=== PATIENT | male | born 1965 | race Caucasian/White ===

== ENCOUNTER 2018-11-17 15:54 | Inpatient (IN) ==
[2018-11-17] MEDS ORDERED: ASPIRIN CHEW 324 MG PO STA (16:12)
[2018-11-17] MEDS ORDERED: NITROGLYCERIN SL 0.4 MG/TAB TAB SL PRN (16:14)
[2018-11-17] MEDS ORDERED: SODIUM CHLORIDE 0.9% 1000ML 1,000 ML IV SCH (16:15)
--- NOTE | 2018-11-17 16:39 | XRay Report ---
XR chest 1V portable CLINICAL HISTORY: Chest Pain COMPARISON STUDY: No previous studies for comparison. FINDINGS: Lung volumes are normal. There is no pneumothorax. No consolidation or evidence for pulmona ry edema. There is mild cardiomegaly. There is a possible trace right pleural effusion. IMPRESSION: 1. Possible trace right pleural effusion. 2. Mild cardiomegaly without evidence for pulmonary edema. Electronically signed by: Shahzad Feldman M.D. 11/17/2018 4:38 PM
[2018-11-17 16:42] LABS: Basophils # (auto) 0.03 K/uL (0-0.2); Basophils % (auto) 0.3 %; Eosinophils % (auto) 1.8 %; Hematocrit (blood only) 38.3 % (42-52); Hemoglobin 13.3 g/dL (14.0-18.0); Immature Granulocytes # (auto) 0.03 K/uL (0.00-0.02); Immature Granulocytes % (auto) 0.3 %; Lymphocytes # (auto) 1.54 K/uL (1.2-3.4); Lymphocytes % (auto) 14.2 %; Mean Corpuscular Hgb Conc 34.7 g/dL (32-36); Mean Corpuscular Volume 91.6 fL (80-100); Mean Platelet Volume 10.5 fL (7.4-10.4); Monocytes # (auto) 1.11 K/uL (0.11-0.59); Monocytes % (auto) 10.3 %; Neutrophils # (auto) 7.91 K/uL (1.4-6.5); Neutrophils % (auto) 73.1 %; Platelet Count 329 K/uL (130-400); RDW Coefficient of Variation 12.6 % (11.5-14.5); RDW Standard Deviation 42.3 fL (36.4-46.3); Red Blood Count 4.18 M/uL (4.7-6.1); White Blood Count 10.82 K/uL (4.8-10.8)
[2018-11-17 16:59] LABS: Alanine Aminotransferase 22 U/L (12-78); Albumin Level 3.2 gm/dl (3.4-5.0); Aspartate Aminotransferase 9 U/L (15-37); BUN Creatinine Ratio 20.2 (10-20); Blood Urea Nitrogen 19 mg/dl (7-18); Carbon Dioxide 27 mmol/L (21-32); Chloride 104 mmol/L (98-107); Creatinine Clr Calc Pharmacy 114.5 ml/min; Est GFR (Non-African American) 89.8; Glucose 58 mg/dl (70-99); Potassium 3.7 mmol/L (3.5-5.1); Sodium 136 mmol/L (136-145)
[2018-11-17 17:04] LABS: Albumin Globulin Ratio 0.8 (0.9-2); Alkaline Phosphatase 82 U/L (45-117); Bilirubin,Total 0.7 mg/dl (0.2-1); Globulin 4.1 gm/dl (2.5-4.0); Total Protein 7.3 gm/dl (6.4-8.2); Troponin I < 0.015 ng/ml (0-0.045)
[2018-11-17 17:08] LABS: INR 1.1 (0.9-1.1); Partial Thromboplastin Ratio 1.1; Partial Thromboplastin Time 29.9 Seconds (21.0-31.0); Prothrombin Time 10.8 Seconds (9.0-12.0)
[2018-11-17 18:37] LABS: Phosphorus 3.3 mg/dl (2.5-4.9)
[2018-11-17] MEDS ORDERED: METOPROLOL SUCC 25MG EXT REL TAB PO ONE (19:06)
[2018-11-17] MEDS ORDERED: IBUPROFEN 600 MG TAB PO STA (19:12)
--- NOTE | 2018-11-17 19:38 | History & Physical Report ---
Date of Service November 17, 2018 Assessment & Plan (1) Pericardial effusion: (2) Chest pain: Pt presented with c/o anterior CP, SOB x 1 week, worse with inspiration. Had Outpatient study 12/17/18 CTA CHEST: Moderate pericardial effusion. Trace bilateral pleural effusions. No pulmonary embolism identified. In ER pt afebrile, P: 114, R: 20, BP: 126/75, 96% on RA. WBC: 10.8, H/H: 13/38, BUN: 19, Cr: 0.9, negative troponin, ESR: 67, CRP: 13.5, EKG: sinus tachycardia, rate 111 CXR: Possible trace right pleural effusion. Mild cardiomegaly without evidence for pulmonary edema. -In ER pt was given aspirin 324mg, NSS at 125ml/hr -trend troponin -Ibuprofen dose tonight, reassess in am to determine if scheduled ibuprofen or if cardiology prefers different agent -Echo -Cardiology consult, jury consultant recommends Ibuprofen dose -NPO midnight -Repeat EKG in am (3) Diabetes mellitus, type 2: A1c: 7.4 on 09/16/18 -Hold metformin, ozempic -Continue Lantus (dosed with sliding scale for now since pt didn't eat lunch/dinner and had initial glucose 54 in ER, and will be NPO midnight) -Novolog sliding scale per protocol (4) Hypertension: -Continue metoprolol, lisinopril (5) Hyperlipidemia: -Continue statin (6) Depression: -Continue bupropion (7) GERD (gastroesophageal reflux disease): -Continue PPI (8) Thoracic aortic aneurysm: H/O 4.7cm ascending thoracic aortic aneurysm DVT Prophylaxis -SCDs for now, will re-evaluate tomorrow Full Code as per discussion with pt Follows with Dr Sullivan for routine care Pt was seen and care coordinated with Dr Wilkinson. See addendum History of Present Illness Chief Complaint: CP Primary Care Provider: Claus Sullivan MD Pt is 53 y/o M with PMH DM II, HTN, dyslipidemia, h/o DVT, thoracic aortic aneurysm presented to ER from direction of PCP for CP and SOB. Pt reports is been having anterior chest pain and shortness of breath which started 1 week ago. He reports initially chest pain with inspiration. Patient states initially felt short of breath at rest but now feels short of breath with exertion. Symptoms seem improved with sitting up. Denies cough. [place] like had some sore throat a couple of days ago. Patient thinks had mild fever 4 days ago. Was seen at PCPs office and had continued symptoms so had outpatient CT chest to rule out PE today with findings of moderate pericardial effusion, trace bilateral pleural effusions, no PE identified. Pt states has been taking Tylenol intermittently without much relief. Denies diaphoresis, N/V/D/C, [place], dizziness, syncope, vision changes, orthopnea, palpitations, choking, otalgia, rhinorrhea, abdominal pain, paresthesias, weakness, extremity weakness, extremity edema, rashes, urinary symptoms. Allergies Allergy/AdvReac Type Severity Reaction Status Date / Time No Known Allergies Allergy Verified 11/17/18 16:58 Home Medications Home Medications Medication Instructions Recorded Confirmed Type Lantus U-100 Insulin 54 unit SUBCUT QAM 04/08/18 11/17/18 History Ozempic 1 mg SUBCUT WK 04/08/18 11/17/18 History aspirin [Aspir-81] 81 mg PO QAM 04/08/18 11/17/18 History atorvastatin 40 mg PO DAILY 04/08/18 11/17/18 History bupropion HCl 150 mg PO BID 04/08/18 11/17/18 History lisinopril 5 mg PO DAILY 04/08/18 11/17/18 History metoprolol succinate 25 mg PO QAM 04/08/18 11/17/18 History omeprazole 20 mg PO QAM 04/08/18 11/17/18 History metformin 1,000 mg PO BID 11/17/18 11/17/18 History Past Med/Surg History Medical History Sleep apnea (Chronic) NO DEVICE DVT (deep venous thrombosis) (Resolved) 15 YEARS AGO Depression (Chronic) GERD (gastroesophageal reflux disease) (Chronic) Obesity (Chronic) Thoracic aortic aneurysm (Chronic) 4.7cm on echo, 2018 Gastroparesis (Chronic) Hyperlipidemia (Chronic) Hypertension (Chronic) Diabetes mellitus, type 2 (Chronic) IDDM Surgical History History of herniorrhaphy (Chronic) CHILDHOOD History of eye surgery (Chronic) MUSCULAR SURGERY X2 Family History Other Cancer Diabetes Social History Preferred Language: Kinyarwanda Communication Ability: Effective Electrophysiology Nurse Practitioner Required: No Beliefs That Will Affect Care: None Current Living Situation: Alone Other Information That Helps Us Care for You: No Feels Safe at Home: Yes Safety Concerns: Feels Safe At This Time Smoking Status: Former smoker Smoking End Date: 2012 Second Hand Exposure: No Hx Alcohol Use: Yes Alcohol type: other Alcohol Intake Frequency Comment: 2 times a month Hx Substance Use: No Review of Systems Review of Systems: All systems reviewed & are unremarkable except as noted in HPI & below Physical Exam Physical Exam: General: no acute distress, obese Head: normocephalic, atraumatic Eyes: PERRL, EOM's intact, conjunctiva non-injected, anicteric ENT: normal inspection external ears, nose, mucous membranes moist Neck: supple, trachea midline, non-tender Lungs: clear, no respiratory distress, no wheezing/rhonchi/rales CV: regular rhythm, rate 110, no murmur, no JVD, trace pretibial edema Abd: normal BS, soft, non-tender Ext: no cyanosis, no calf tenderness Neuro: A&O x 3, no focal deficits noted, normal affect Skin: warm, dry Results & Data Vital Signs (Past 12 Hours) Vital Signs Temp Pulse Pulse Resp BP BP Pulse Ox 11/17/18 18:31 113 H 25 H 11/17/18 18:30 111 H 27 H 141/96 H 11/17/18 18:01 105 H 22 95 11/17/18 17:43 105 H 22 141/98 H 95 11/17/18 16:52 110 H 20 123/81 96 11/17/18 16:28 96 11/17/18 15:58 36.7 C 114 H 20 126/75 96 Laboratory Results Short CBC 11/17/18 Range/Units 16:25 WBC 10.82 H (4.8-10.8) K/uL Hgb 13.3 L (14.0-18.0) g/dL Hct 38.3 L (42-52) % Plt Count 329 (130-400) K/uL BMP 11/17/18 16:25 Sodium 136 Potassium 3.7 Chloride 104 Carbon Dioxide 27 BUN 19 H Creatinine 0.95 Glucose 58 L Calcium 9.0 Cardiac Enzymes 11/17/18 Range/Units 16:25 Troponin I < 0.015 (0-0.045) ng/ml Liver Function 11/17/18 Range/Units 16:25 Total Bilirubin 0.7 (0.2-1) mg/dl AST 9 L (15-37) U/L ALT 22 (12-78) U/L Alkaline Phosphatase 82 (45-117) U/L Albumin 3.2 L (3.4-5.0) gm/dl Diagnostic Findings CXR: IMPRESSION: 1. Possible trace right pleural effusion. 2. Mild cardiomegaly without evidence for pulmonary edema. Out patient study: 12/17/18 CTA CHEST: IMPRESSION 1. Moderate pericardial effusion. 2. Trace bilateral pleural effusions. 3. No pulmonary embolism identified. Supervising Physician Co-Signing Physician Notes Attending addendum The patient was seen and examined in the emergency room This 53-year-old male with significant past medical history of diabetes, hypertension, hyperlipidemia and sleep apnea was admitted yesterday with the chest heaviness/pain and shortness of breath on exertion Noted to have him medical effusion on CAT scan and cardiomegaly chest x-ray Did not complain any other symptoms during my examination of the emergency room except a heaviness in the chest when lying down without shortness of breath The initial lab works are unremarkable On examination No apparent distress at rest Hemodynamically stable with borderline tachycardia Chest-clear to auscultate bilaterally Heart-S1-S2, regular, no decreasing heart sounds and no rub Abdomen-benign Extremities-trace edema bilaterally [employer]-alert, awake and oriented x3 Admission labs, imaging studies and EKG reviewed Has mild pericardial effusion without any significant symptoms Started on ibuprofen and cardiology consulted Agree with assessment and plan as outlined above by CANDI Over[address] Dr (1) Chest pain Chest pain type: unspecified Qualified Code(s): R07.9 - Chest pain, unspecified
[2018-11-17] MEDS ORDERED: GLUCOSE 10 TABS/TUBE PO PRN (20:48)
[2018-11-17] MEDS ORDERED: GLUCOSE 40% GEL 15 GM TUBE PO PRN (20:48)
[2018-11-17] MEDS ORDERED: CARBOHYDRATES FOR HYPOGLYCEMIA PO PRN (20:48)
[2018-11-17] MEDS ORDERED: DEXTROSE 50% 50 ML SYRINGE IV PRN (20:48)
[2018-11-17] MEDS ORDERED: ACETAMINOPHEN 325 MG TAB PO PRN (20:48)
[2018-11-17] MEDS ORDERED: GLUCAGON FOR INJ 1 MG VIAL SQ PRN (20:48)
[2018-11-17] MEDS: BuPROPion SR 150 MG TABCR PO SCH (21:43)
[2018-11-17] MEDS: INSULIN ASPART 100 UNITS/ML 3 ML PEN SC SCH (21:44)
[2018-11-17] MEDS: INSULIN GLARGINE SOLOSTAR 100 UNITS/ML 3 ML PEN SC SCH (21:44)
--- NOTE | 2018-11-18 00:34 | Emergency Department Note ---
Entered by Mikael Wright acting as a scribe for Mary Mae MD History of Present Illness General Chief complaint: Chest Pain Stated complaint: CHEST PAIN, POSSIBLE FLUID AROUND HEART-REFERRED Source: patient History of Present Illness Onset (ago): week(s) 1 Location: chest Pain Consistency: + other (worsening) Maximum Pain Intensity: 0 Exacerbated By: + other (exertion and deep breathing) Associated symptoms: + denies other symptoms (mucous buildup, throat tightness); no shortness of breath The patient is a 53 year old M who presents to the Emergency Room with complaints of worsening chest pain that started 1 week ago. The patient states that he thinks he has a cold. He adds that he saw his PCP recently who thinks he has a possible pneumonia. He notes that he also had a CT scan today. Per pt, PCP saw his CT scan and thought he had fluid building up around his heart, referring him to the ED. He notes that his chest pain is worsened with exertion and deep breathing. He denies currently experiencing mucous buildup, shortness of breath, and throat tightness. He states that he has a history of diabetes, HTN, HLD, enlarged aorta, and a blood clot in 2007. He adds that he does not know the source of his blood clot. He denies being on any recent long trips. He notes that he ate last 2 days ago. He states that he has trouble breathing but was able to sleep well yesterday after taking Sudafed. He adds that his other medication that he regularly takes is Wellbutrin. He states that he quit smoking in 2012. A review of the patients records reveals that the patient had a CT PE with contrast today at [facility], 11/17/18. The CT scan showed moderate pericardial effusion, trace bilateral pleural effusions, and no pulmonary embolism. Home Medications Home Medications Medication Instructions Recorded Confirmed Type Lantus U-100 Insulin 54 unit SUBCUT QAM 04/08/18 11/17/18 History Ozempic 1 mg SUBCUT WK 04/08/18 11/17/18 History aspirin [Aspir-81] 81 mg PO QAM 04/08/18 11/17/18 History atorvastatin 40 mg PO DAILY 04/08/18 11/17/18 History bupropion HCl 150 mg PO BID 04/08/18 11/17/18 History lisinopril 5 mg PO DAILY 04/08/18 11/17/18 History metoprolol succinate 25 mg PO QAM 04/08/18 11/17/18 History metformin 1,000 mg PO BID 11/17/18 11/17/18 History colchicine [Colcrys] 0.6 mg PO BID 90 Days #180 tab 11/19/18 Rx ibuprofen 600 mg PO Q8H 30 Days #90 tab 11/19/18 Rx pantoprazole 40 mg PO QAM 30 Days #30 tab 11/19/18 Rx Allergies Allergy/AdvReac Type Severity Reaction Status Date / Time No Known Allergies Allergy Verified 11/17/18 16:58 Past Med/Surg History Medical History Sleep apnea (Chronic) NO DEVICE DVT (deep venous thrombosis) (Resolved) 15 YEARS AGO Depression (Chronic) GERD (gastroesophageal reflux disease) (Chronic) Obesity (Chronic) Thoracic aortic aneurysm (Chronic) 4.7cm on , 2017 Gastroparesis (Chronic) Hyperlipidemia (Chronic) Hypertension (Chronic) Diabetes mellitus, type 2 (Chronic) IDDM Surgical History History of herniorrhaphy (Chronic) CHILDHOOD History of eye surgery (Chronic) MUSCULAR SURGERY X2 Family History Other Cancer Diabetes Social History Preferred Language: Tristanian Communication Ability: Effective Starting Gate Driver Required: No Beliefs That Will Affect Care: None Current Living Situation: Alone Other Information That Helps Us Care for You: No Feels Safe at Home: Yes Safety Concerns: Feels Safe At This Time Smoking Status: Former smoker Smoking End Date: 2012 Second Hand Exposure: No Hx Alcohol Use: Yes Alcohol type: other Alcohol Intake Frequency Comment: 2 times a month Hx Substance Use: No Review of Systems See HPI for pertinent positives & negatives. and A total of 10 systems reviewed and were otherwise negative Physical Exam Vital Signs Vital Signs - 24 hr 11/17/18 15:58 11/17/18 16:28 11/17/18 16:52 Temperature 36.7 C Temperature Source Oral Sepsis Recent Fever Within 48 Hours No Sepsis New/Unexplained Change in Mental Status No Sepsis Action Taken by Nursing No Action Required Pulse Rate 114 H Pulse Rate [Apical] 110 H Pulse Rate from SpO2 Sensor Pulse Rhythm Regular Pulse Strength Normal Respiratory Rate 20 20 Respiratory Effort / Characteristics Non-Labored Spontaneous Non-Labored Spontaneous Respiratory Depth Normal Normal Respiratory Pattern Regular Regular Blood Pressure 126/75 Blood Pressure [Left Arm] 123/81 Blood Pressure Mean 92 Blood Pressure Mean [Left Arm] 95 Blood Pressure Position Sitting Blood Pressure Position [Left Arm] Sitting Pulse Oximetry 96 96 96 Oxygen Delivery Method Room Air Room Air Room Air 11/17/18 17:43 11/17/18 18:01 11/17/18 18:30 Temperature Temperature Source Sepsis Recent Fever Within 48 Hours Sepsis New/Unexplained Change in Mental Status Sepsis Action Taken by Nursing Pulse Rate 105 H 111 H Pulse Rate [Apical] 105 H Pulse Rate from SpO2 Sensor 104 H Pulse Rhythm Pulse Strength Respiratory Rate 22 22 27 H Respiratory Effort / Characteristics Non-Labored Spontaneous Respiratory Depth Normal Respiratory Pattern Regular Blood Pressure 141/96 H Blood Pressure [Left Arm] 141/98 H Blood Pressure Mean 111 Blood Pressure Mean [Left Arm] 112 Blood Pressure Position Blood Pressure Position [Left Arm] Sitting Pulse Oximetry 95 95 Oxygen Delivery Method Room Air 11/17/18 18:31 Temperature Temperature Source Sepsis Recent Fever Within 48 Hours Sepsis New/Unexplained Change in Mental Status Sepsis Action Taken by Nursing Pulse Rate 113 H Pulse Rate [Apical] Pulse Rate from SpO2 Sensor Pulse Rhythm Pulse Strength Respiratory Rate 25 H Respiratory Effort / Characteristics Respiratory Depth Respiratory Pattern Blood Pressure Blood Pressure [Left Arm] Blood Pressure Mean Blood Pressure Mean [Left Arm] Blood Pressure Position Blood Pressure Position [Left Arm] Pulse Oximetry Oxygen Delivery Method Vital signs reviewed. General: Well-appearing male, in no significant distress. HEENT: No scleral icterus, PERRLA, neck supple. Atraumatic. Cardiovascular: Tachycardic rate and rhythm, no extra sounds. Pulmonary: Clear to auscultation bilaterally, normal work of breathing. Abdomen: Soft, obese, nontender, nondistended, positive bowel sounds. Musculoskeletal: Atraumatic, non-pitting edema to lower extremities. Neurologic: Patient awake alert and oriented x 3. Skin: Warm, dry, no rash Course 0: The patient was evaluated in room B10. A complete history and physical exam was performed. 1809: I reviewed the patient's case with CANDI Lawrence. She will evaluate the patient for further management. 1814: I re-checked the patient and updated him on his test results and plan. Consultations Consultation #1: I reviewed the patient's case with BERTIN Lawrence. She will evaluate the patient for further management. Time: 18:10 Administered Medications Discontinued Medications Aspirin (Aspirin) 324 mg PO NOW STA Stop: 11/17/18 16:13 Last Admin: 11/17/18 16:52 Dose: 324 mg Documented by: [id number] Aspirin (Ecotrin Ectab) 81 mg PO QAM NICK Stop: 12/18/18 08:59 Last Admin: 11/19/18 08:47 Dose: 81 mg Documented by: [id number] Admin: 11/18/18 08:18 Dose: 81 mg Documented by: [id number] Atorvastatin Calcium (Lipitor) 40 mg PO DAILY NICK Stop: 12/18/18 08:59 Last Admin: 11/19/18 08:46 Dose: 40 mg Documented by: [id number] Admin: 11/18/18 08:18 Dose: 40 mg Documented by: [id number] Bupropion HCl (Wellbutrin-Sr) 150 mg PO BID [facility] Stop: 12/17/18 20:59 Last Admin: 11/19/18 08:46 Dose: 150 mg Documented by: [id number] Admin: 11/18/18 20:46 Dose: 150 mg Documented by: [id number] Admin: 11/18/18 08:17 Dose: 150 mg Documented by: [id number] Admin: 11/17/18 21:43 Dose: 150 mg Documented by: [id number] Colchicine (Colcrys) 0.6 mg PO BID [facility] Stop: 12/18/18 20:59 Last Admin: 11/19/18 08:47 Dose: 0.6 mg Documented by: [id number] Admin: 11/18/18 20:46 Dose: 0.6 mg Documented by: [id number] Colchicine (Colcrys) 0.6 mg PO NOW ONE Stop: 11/18/18 14:34 Last Admin: 11/18/18 16:46 Dose: 0.6 mg Documented by: [id number] Sodium Chloride (Nss 1000ml) 1,000 mls @ 150 mls/hr IV .Q6H40M [facility] Stop: 12/17/18 16:14 Last Admin: 11/17/18 19:35 Dose: Not Given Documented by: [id number] Ibuprofen (Motrin) 600 mg PO NOW STA Stop: 11/17/18 19:13 Last Admin: 11/17/18 19:34 Dose: 600 mg Documented by: [id number] Ibuprofen (Motrin) 600 mg PO Q8H [facility] Stop: 12/18/18 13:59 Last Admin: 11/19/18 10:01 Dose: 600 mg Documented by: [id number] Admin: 11/19/18 01:50 Dose: 600 mg Documented by: [id number] Admin: 11/18/18 18:24 Dose: 600 mg Documented by: [id number] Ibuprofen (Motrin) 600 mg PO NOW STA Stop: 11/18/18 09:44 Last Admin: 11/18/18 10:36 Dose: 600 mg Documented by: [id number] Insulin Aspart (Novolog Flexpen) 0 units SC ACHS NICK Stop: 12/17/18 20:59 Last Admin: 11/19/18 12:29 Dose: 16 units Documented by: [id number] Cosigned by: [id number] Admin: 11/19/18 08:49 Dose: 15 units Documented by: [id number] Cosigned by: [id number] Admin: 11/18/18 20:48 Dose: 1 units Documented by: [id number] Cosigned by: [id number] Admin: 11/18/18 17:27 Dose: 7 units Documented by: [id number] Cosigned by: [id number] Admin: 11/18/18 12:41 Dose: 5 units Documented by: [id number] Cosigned by: [id number] Admin: 11/18/18 08:19 Dose: Not Given Documented by: [id number] Cosigned by: [id number] Admin: 11/17/18 21:44 Dose: Not Given Documented by: [id number] Cosigned by: [id number] Insulin Glargine (Lantus Solostar Pen) 0 - 27 units SC BID NICK Stop: 12/17/18 20:59 Last Admin: 11/19/18 08:49 Dose: 14 units Documented by: [id number] Cosigned by: [id number] Admin: 11/18/18 20:47 Dose: 14 units Documented by: [id number] Cosigned by: [id number] Admin: 11/18/18 08:18 Dose: Not Given Documented by: [id number] Cosigned by: [id number] Admin: 11/17/18 21:44 Dose: 14 units Documented by: [id number] Cosigned by: [id number] Lisinopril (Zestril) 5 mg PO DAILY NIKC Stop: 12/18/18 08:59 Last Admin: 11/19/18 08:46 Dose: 5 mg Documented by: [id number] Admin: 11/18/18 08:17 Dose: 5 mg Documented by: [id number] Metoprolol Succinate (Toprol Xl) 25 mg PO ONE ONE Stop: 11/17/18 19:07 Last Admin: 11/17/18 19:34 Dose: 25 mg Documented by: [id number] Metoprolol Succinate (Toprol Xl) 25 mg PO [facility] Stop: 12/18/18 08:59 Last Admin: 11/19/18 10:02 Dose: 25 mg Documented by: [id number] Admin: 11/18/18 08:17 Dose: 25 mg Documented by: [id number] Metoprolol Succinate (Toprol Xl) 25 mg PO NOW STA Stop: 11/19/18 10:10 Last Admin: 11/19/18 10:35 Dose: 25 mg Documented by: [id number] Miscellaneous (Carbohydrates For Hypoglycemia) 15 - 30 gm PO UD PRN PRN Reason: Hypoglycemia Treatment Stop: 12/17/18 20:47 Last Admin: 11/18/18 08:15 Dose: 15 gm Documented by: [id number] Pantoprazole Sodium (Protonix) 40 mg PO [facility]; Protocol Stop: 12/18/18 08:59 Last Admin: 11/19/18 08:46 Dose: 40 mg Documented by: [id number] Admin: 11/18/18 08:17 Dose: 40 mg Documented by: [id number] Potassium Chloride (Klor-Con M10) 20 meq PO NOW STA Stop: 11/19/18 09:54 Last Admin: 11/19/18 10:35 Dose: 20 meq Documented by: [id number] Potassium Chloride (Klor-Con M20) 40 meq PO NOW STA Stop: 11/19/18 10:10 Last Admin: 11/19/18 10:35 Dose: 40 meq Documented by: [id number] Medical Decision Making Differential Diagnosis Differential diagnosis includes acute coronary syndrome, pulmonary embolus, aortic dissection, musculoskeletal pain, pneumonia, pleural effusion, pneumothorax, gastritis, peptic ulcer disease. Medical Records Attestation: I reviewed the patient's medical records. Home Medications Current Medication List: was personally reviewed by me Laboratory Data Attestation: I reviewed the patient's lab results. Result diagrams: 11/19/18 05:34 11/19/18 05:34 Lab Results 11/17/18 11/17/18 11/17/18 Range/Units 16:25 16:25 16:25 WBC 10.82 H (4.8-10.8) K/uL RBC 4.18 L (4.7-6.1) M/uL Hgb 13.3 L (14.0-18.0) g/dL Hct 38.3 L (42-52) % MCV 91.6 (80-100) fL MCH 31.8 (25-34) pg MCHC 34.7 (32-36) g/dL RDW Std Deviation 42.3 (36.4-46.3) fL RDW Coeff of Jesus 12.6 (11.5-14.5) % Plt Count 329 (130-400) K/uL MPV 10.5 H (7.4-10.4) fL Immature Gran % (Auto) 0.3 % Neut % (Auto) 73.1 % Lymph % (Auto) 14.2 % [place] % (Auto) 10.3 % Eos % (Auto) 1.8 % Baso % (Auto) 0.3 % Immature Gran # (Auto) 0.03 H (0.00-0.02) K/uL Neut # (Auto) 7.91 H (1.4-6.5) K/uL Lymph # (Auto) 1.54 (1.2-3.4) K/uL [place] # (Auto) 1.11 H (0.11-0.59) K/uL Eos # (Auto) 0.20 (0-0.5) K/uL Baso # (Auto) 0.03 (0-0.2) K/uL ESR 67 H (0-14) mm/hr PT (9.0-12.0) Seconds INR (0.9-1.1) APTT (21.0-31.0) Seconds PTT Ratio Sodium 136 (136-145) mmol/L Potassium 3.7 (3.5-5.1) mmol/L Chloride 104 (98-107) mmol/L Carbon Dioxide 27 (21-32) mmol/L Anion Gap 5.0 (3-11) BUN 19 H (7-18) mg/dl Creatinine 0.95 (0.6-1.4) mg/dl Est Cr Clr Drug Dosing 114.5 ml/min Est GFR ( Amer) 104.0 Est GFR (Non-Af Amer) 89.8 BUN/Creatinine Ratio 20.2 H (10-20) Glucose 58 L (70-99) mg/dl Calcium 9.0 (8.5-10.1) mg/dl Phosphorus 3.3 (2.5-4.9) mg/dl Magnesium 2.0 (1.8-2.4) mg/dl Total Bilirubin 0.7 (0.2-1) mg/dl AST 9 L (15-37) U/L ALT 22 (12-78) U/L Alkaline Phosphatase 82 (45-117) U/L Troponin I < 0.015 (0-0.045) ng/ml C-Reactive Protein 13.50 H (0-0.29) mg/dl Total Protein 7.3 (6.4-8.2) gm/dl Albumin 3.2 L (3.4-5.0) gm/dl Globulin 4.1 H (2.5-4.0) gm/dl Albumin/Globulin Ratio 0.8 L (0.9-2) Lipase 71 L (73-393) U/L 11/17/18 Range/Units 16:26 WBC (4.8-10.8) K/uL RBC (4.7-6.1) M/uL Hgb (14.0-18.0) g/dL Hct (42-52) % MCV (80-100) fL MCH (25-34) pg MCHC (32-36) g/dL RDW Std Deviation (36.4-46.3) fL RDW Coeff of Jesus (11.5-14.5) % Plt Count (130-400) K/uL MPV (7.4-10.4) fL Immature Gran % (Auto) % Neut % (Auto) % Lymph % (Auto) % [place] % (Auto) % Eos % (Auto) % Baso % (Auto) % Immature Gran # (Auto) (0.00-0.02) K/uL Neut # (Auto) (1.4-6.5) K/uL Lymph # (Auto) (1.2-3.4) K/uL [place] # (Auto) (0.11-0.59) K/uL Eos # (Auto) (0-0.5) K/uL Baso # (Auto) (0-0.2) K/uL ESR (0-14) mm/hr PT 10.8 (9.0-12.0) Seconds INR 1.1 (0.9-1.1) APTT 29.9 (21.0-31.0) Seconds PTT Ratio 1.1 Sodium (136-145) mmol/L Potassium (3.5-5.1) mmol/L Chloride (98-107) mmol/L Carbon Dioxide (21-32) mmol/L Anion Gap (3-11) BUN (7-18) mg/dl Creatinine (0.6-1.4) mg/dl Est Cr Clr Drug Dosing ml/min Est GFR ( Amer) Est GFR (Non-Af Amer) BUN/Creatinine Ratio (10-20) Glucose (70-99) mg/dl Calcium (8.5-10.1) mg/dl Phosphorus (2.5-4.9) mg/dl Magnesium (1.8-2.4) mg/dl Total Bilirubin (0.2-1) mg/dl AST (15-37) U/L ALT (12-78) U/L Alkaline Phosphatase (45-117) U/L Troponin I (0-0.045) ng/ml C-Reactive Protein (0-0.29) mg/dl Total Protein (6.4-8.2) gm/dl Albumin (3.4-5.0) gm/dl Globulin (2.5-4.0) gm/dl Albumin/Globulin Ratio (0.9-2) Lipase (73-393) U/L Imaging Data Radiologist's Impression: Radiology results as stated below per my review and the radiologist's interpretation: XR chest 1V portable CLINICAL HISTORY: Chest Pain COMPARISON STUDY: No previous studies for comparison. FINDINGS: Lung volumes are normal. There is no pneumothorax. No consolidation or evidence for pulmonary edema. There is mild cardiomegaly. There is a possible trace right pleural effusion. IMPRESSION: 1. Possible trace right pleural effusion. 2. Mild cardiomegaly without evidence for pulmonary edema. Electronically signed by: Shahzda Feldman M.D. 11/17/2018 4:38 PM ECG Data Attestation: I personally reviewed and interpreted this ECG as follows: Indication: chest pain Rate (beats per minute): 113 Rhythm: sinus tachycardia Findings: + other (poor quality baseline for interpretation, T-wave flattening inferiorly, QTc 422), + PVC (occasional) and + Q waves (Anterior); no acute ischemic change Blood Pressure Blood Pressure Findings: Elevated blood pressure Blood Pressure Disposition: further management by hospitalist MDM Narrative This pt was evaluated and appeared to be in no distress. IV access was obtained and lab work was drawn. PT was placed on the telemetry monitor. Records were obtained from outpt setting. CT reveals pl effusion and mod pericardial effusion. EKG reveals a sinus tach with inferior T wave flattening. Lab work is as above, negative trop and WBC is WNL. Pt was advised of the findings. He will be evaluated by the hospitalist for further management. Pt is aware of the plan and agrees. Impression & Plan Chest pain, Pericardial effusion, Bilateral pleural effusion Discharge Plan Visit Data *Final* Discharge Date/Time: 11/17/18 19:54 Chief Complaint: Chest Pain Stated Complaint: CHEST PAIN, POSSIBLE FLUID AROUND HEART-REFERRED ED Provider: Mary Mae Discharge Problem: Chest pain, Pericardial effusion, Bilateral pleural effusion Patient Disposition: Admitted As Inpatient Discharge Instructions Interventions: ED Discharge Assessment Last Done: 11/17/18 19:54 Discharge Problem: Chest pain Qualifiers: Chest pain type: unspecified Qualified Code(s): R07.9 - Chest pain, unspecified The scribe's documentation has been prepared under my direction and personally reviewed by me in its entirety. I confirm that the note above accurately reflects all work, treatment, procedures, and medical decision making performed by me.
[2018-11-18 04:13] LABS: Hematocrit (blood only) 35.1 % (42-52); Hemoglobin 12.1 g/dL (14.0-18.0); Mean Corpuscular Hgb Conc 34.5 g/dL (32-36); Mean Corpuscular Volume 92.6 fL (80-100); Mean Platelet Volume 9.5 fL (7.4-10.4); Platelet Count 307 K/uL (130-400); RDW Coefficient of Variation 12.6 % (11.5-14.5); RDW Standard Deviation 42.8 fL (36.4-46.3); Red Blood Count 3.79 M/uL (4.7-6.1); White Blood Count 9.86 K/uL (4.8-10.8)
[2018-11-18 04:32] LABS: BUN Creatinine Ratio 22.4 (10-20); Blood Urea Nitrogen 17 mg/dl (7-18); Calcium 8.7 mg/dl (8.5-10.1); Carbon Dioxide 32 mmol/L (21-32); Chloride 103 mmol/L (98-107); Creatinine Clr Calc Pharmacy 139.4 ml/min; Est GFR (African American) 117.8; Est GFR (Non-African American) 101.6; Glucose 60 mg/dl (70-99); Potassium 3.6 mmol/L (3.5-5.1); Sodium 137 mmol/L (136-145)
[2018-11-18 04:43] LABS: Troponin I < 0.015 ng/ml (0-0.045)
[2018-11-18] MEDS: METOPROLOL SUCC 25MG EXT REL TAB PO SCH (08:17)
[2018-11-18] MEDS: BuPROPion SR 150 MG TABCR PO SCH ×2 (08:17→20:46)
[2018-11-18] MEDS: PANTOprazole 40 MG TAB PO SCH (08:17)
[2018-11-18] MEDS: LISINOPRIL 5 MG TAB PO SCH (08:17)
[2018-11-18] MEDS: ASPIRIN 81 MG ECTAB PO SCH (08:18)
[2018-11-18] MEDS: INSULIN GLARGINE SOLOSTAR 100 UNITS/ML 3 ML PEN SC SCH ×2 (08:18→20:47)
[2018-11-18] MEDS: ATORVASTATIN 40 MG TAB PO SCH (08:18)
[2018-11-18] MEDS: INSULIN ASPART 100 UNITS/ML 3 ML PEN SC SCH ×4 (08:19→20:48)
[2018-11-18] MEDS ORDERED: IBUPROFEN 600 MG TAB PO STA (09:43)
--- NOTE | 2018-11-18 11:45 | Consultation Report ---
DATE OF CONSULTATION: 11/18/2018 CARDIOLOGY CONSULTATION CONSULTATION REQUESTED BY: Jaja REASON FOR CONSULTATION: Symptomatic pericardial effusion. HISTORY OF PRESENT ILLNESS: The patient is a very pleasant 53-year-old gentleman who normally follows with myself as an outpatient for his history of ascending thoracic aortic aneurysm. As matter of fact actually just saw him on 10/28/2018, at which time he was symptom free; however, he states about a week ago, he started noticing he was getting short of breath with activity and he would have a fullness sensation in his chest if he took a deep breath. He also had an achy sensation in the center of his chest and these symptoms slowly progressed to the point where he went to see his PCP on 11/16/2018, Dr. Grider. Office note is not available at this time; however, looks as though he was sent for a CTA of the chest to rule out PE, which was negative for PE, but did show pericardial effusion. When the results became available, he was recommended he go to [facility] Emergency Department. Upon arrival, an echocardiogram was performed that showed only a mild circumferential pericardial effusion and the patient was started on ibuprofen. After 1 dose, he states he feels a little bit better, but still notices the discomfort with deep inhalation, but denies any palpitations, lightheadedness, dizziness or syncope. He denies any sick contacts and has not had any significant fevers or chills lately. He also denies any tick bites. PAST SURGICAL HISTORY: 1. Upper endoscopies. 2. Colonoscopy. 3. Hernia repair. 4. Eye muscle surgery. MEDICAL ILLNESSES: 1. Ascending thoracic aortic aneurysm 4.7 cm. 2. Diabetes. 3. Hyperlipidemia. 4. History of DVT. 5. Gastroparesis. FAMILY HISTORY: Denies any premature coronary artery disease or sudden cardiac . SOCIAL HISTORY: The patient denies any alcohol, tobacco or recreational drug use. He is not , lives by himself. He works 2 jobs including [employer] and a local [employer]. REVIEW OF SYSTEMS: As per HPI, all other review of systems reviewed and negative at this time. ALLERGIES: JARDIANCE. MEDICATIONS AN OUTPATIENT: 1. Lisinopril 5 mg daily. 2. Atorvastatin 40 mg daily. 3. Metoprolol succinate 25 mg daily. 4. Metformin. 5. Aspirin 81 mg daily. 6. Ozempic. 7. Lantus. PHYSICAL EXAMINATION: VITALS: Temperature 37.2, pulse 96, respiratory rate 12, blood pressure 127/83. GENERAL: Awake, alert, oriented x3, in no acute distress. HEENT: Normocephalic, atraumatic. Pupils equal, round, reactive to light and accommodation. Extraocular muscles intact. Anicteric sclerae. Moist mucous membranes. NECK: No JVD, no bruit. CARDIOVASCULAR: Regular. Positive S4. Normal S1 and S2. No S3. No murmurs or rubs. PULMONARY: Clear to auscultation bilaterally. No rales, rhonchi or wheezing. ABDOMEN: Bowel sounds x4, soft. No rebound, guarding, tenderness. No organomegaly. EXTREMITIES: No clubbing, cyanosis or edema. +2 pedal pulses bilaterally. SKIN: Warm and dry. TEST RESULTS: A 2D echocardiogram showed normal LV chamber size with mild concentric LVH, normal LV systolic function, EF 55%-60%, no segmental wall motion abnormalities, grade 2 diastolic dysfunction, mild aortic valve sclerosis without stenosis, trace aortic regurgitation, moderately enlarged ascending aortic aneurysm measuring 4.7 cm, unchanged compared to previous study of 12/10/2017, small circumferential pericardial effusion more pronounced anteriorly, tamponade physiology is not present. CTA of the chest performed at [facility] personally reviewed and his ascending aorta personally measured to be 4.6 cm. IMPRESSION: 1. Pericarditis with small circumferential pericardial effusion. 2. Ascending thoracic aortic aneurysm, stable. 3. Hypertension. 4. Diabetes. 5. Dyslipidemia. RECOMMENDATIONS: It was my pleasure to see the patient in consultation today. From a cardiac standpoint, I am not quite sure what the source of his pericardial effusion at this point. 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 At this point, I will check a Lyme titer and has been started on ibuprofen 600 mg t.i.d. along with Protonix. I am concerned about the cost of the colchicine for the patient. He does have Medicaid through [facility]. I have asked Case Management to look into the cost form to see if there is anything we do to make it more attainable for him, so we have decided that. I will hold off on adding colchicine and continue the ibuprofen for now. CHETD
[2018-11-18 13:14] LABS: Lyme Ab IgM w/WB Rflx Negative (Negative)
[2018-11-18 13:18] LABS: Lyme Ab IgG w/WB Rflx Negative (Negative)
[2018-11-18] MEDS ORDERED: COLCHICINE 0.6 MG TAB PO ONE (14:33)
--- NOTE | 2018-11-18 14:56 | Hospitalist Progress Note ---
Date of Service November 18, 2018 Assessment & Plan (1) Pericardial effusion: Secondary to acute pericarditis Most likely viral Echo showed normal LV chamber size with mild concentric LVH, EF 55% to60%, no segmental or motion abnormality, grade 2 diastolic dysfunction, aortic valve sclerosis without significant stenosis, moderately enlarged ascending aortic aneurysm of 4.7 cm(no change compared with that of 11/2017) and small circumferential pericardial effusion, more pronounced anteriorly. No tamponade Appreciate cardiology input and recommendation Has been getting NSAID's with with improved Clinically much better today Present on Admission?: Yes (2) Chest pain: Pt presented with c/o anterior CP, SOB x 1 week, worse with inspiration. Had Outpatient study 12/17/18 CTA CHEST: Moderate pericardial effusion. Trace bilateral pleural effusions. No pulmonary embolism identified. In ER pt afebrile, P: 114, R: 20, BP: 126/75, 96% on RA. WBC: 10.8, H/H: 13/38, BUN: 19, Cr: 0.9, negative troponin, ESR: 67, CRP: 13.5, EKG: sinus tachycardia, rate 111 CXR: Possible trace right pleural effusion. Mild cardiomegaly without evidence for pulmonary edema. -In ER pt was given aspirin 324mg, NSS at 125ml/hr -trend troponin-negative for any ACS -Ibuprofen dose tonight, reassess in am to determine if scheduled ibuprofen or if cardiology prefers different agent -Echo-as above -Cardiology consult, division superintendent recommends Ibuprofen dose -NPO midnight -Repeat EKG in am (3) Diabetes mellitus, type 2: A1c: 7.4 on 09/16/18 -Hold metformin, ozempic -Continue Lantus (dosed with sliding scale for now since pt didn't eat lunch/dinner and had initial glucose 54 in ER, and will be NPO midnight) -Novolog sliding scale per protocol -Blood sugar remains stable (4) Hypertension: -Continue metoprolol, lisinopril - (5) Hyperlipidemia: -Continue statin (6) Depression: -Continue bupropion (7) GERD (gastroesophageal reflux disease): -Continue PPI (8) Thoracic aortic aneurysm: H/O 4.7 centimeter ascending aortic aneurysm Echo showed ascending aortic aneurysm to remain at 4.7 cm DVT Prophylaxis -SCDs for now, will re-evaluate tomorrow -Increase ambulation to prevent DVT Full Code as per discussion with pt Follows with Dr Sullivan for routine care Increase ambulation Likely be discharged tomorrow Subjective 11/18 Patient was seen and examined in medical telemetry unit He was admitted with chest pain with medical effusion likely secondary to acute pericarditis He has been ruled out for any ACS Denies any complaints as of today Review of Systems Review of Systems: All systems reviewed and are unremarkable except as noted below Cardiovascular: Additional Comments: Chest pressure and pain have been resolved. Complains to have little discomfort 1 lying down Physical Exam Physical Exam: No apparent distress at rest Constitutional: well developed and + obese; no acute distress Eyes: PERRL, conjunctivae normal, anicteric sclerae ENMT: external ear and nose normal, oropharynx normal Neck: trachea midline, no thyromegaly Respiratory: normal respiratory effort Auscultation: lungs clear to auscultation bilaterally Cardiovascular: Rate/Rhythm: regular rate and regular rhythm Heart Sounds: no murmur Gastrointestinal (Abdomen): Inspection/Auscultation: abdomen normal to inspection and normal bowel sounds Percussion/Palpation: abdomen soft Musculoskeletal: No acute arthritis Neurologic: patellar DTR's 2+ bilat, sensation intact Lymphatic: no cervical or axillary lymphadenopathy Results & Data Vital Signs (Past 12 Hours) Vital Signs Temp Pulse Resp BP Pulse Ox 11/18/18 11:16 37.8 C H 105 H 18 129/84 94 11/18/18 07:17 37.2 C 96 H 18 127/83 95 11/18/18 04:00 37.3 C 91 H 20 116/79 95 Laboratory Results Short CBC 11/17/18 11/18/18 Range/Units 16:25 04:02 WBC 10.82 H 9.86 (4.8-10.8) K/uL Hgb 13.3 L 12.1 L (14.0-18.0) g/dL Hct 38.3 L 35.1 L (42-52) % Plt Count 329 307 (130-400) K/uL BMP 11/17/18 11/18/18 16:25 04:02 Sodium 136 137 Potassium 3.7 3.6 Chloride 104 103 Carbon Dioxide 27 32 BUN 19 H 17 Creatinine 0.95 0.78 Glucose 58 L 60 L Calcium 9.0 8.7 Cardiac Enzymes 11/17/18 11/17/18 11/18/18 Range/Units 16:25 22:03 04:02 Troponin I < 0.015 < 0.015 < 0.015 (0-0.045) ng/ml Liver Function 11/17/18 Range/Units 16:25 Total Bilirubin 0.7 (0.2-1) mg/dl AST 9 L (15-37) U/L ALT 22 (12-78) U/L Alkaline Phosphatase 82 (45-117) U/L Albumin 3.2 L (3.4-5.0) gm/dl Medications Administered Current Inpatient Medications Acetaminophen (Tylenol) 650 mg PO Q4H PRN PRN Reason: Pain or Fever Stop: 12/17/18 20:47 Aspirin (Ecotrin Ectab) 81 mg PO QAM [facility] Stop: 12/18/18 08:59 Last Admin: 11/18/18 08:18 Dose: 81 mg Documented by: Atorvastatin Calcium (Lipitor) 40 mg PO DAILY [facility] Stop: 12/18/18 08:59 Last Admin: 11/18/18 08:18 Dose: 40 mg Documented by: Bupropion HCl (Wellbutrin-Sr) 150 mg PO BID [facility] Stop: 12/17/18 20:59 Last Admin: 11/18/18 08:17 Dose: 150 mg Documented by: Colchicine (Colcrys) 0.6 mg PO BID [facility] Stop: 12/18/18 20:59 Dextrose (Dextrose 50%) 25 - 50 ml IV UD PRN; Protocol PRN Reason: Hypoglycemia Protocol Stop: 12/17/18 20:47 Glucagon (Glucagen) 1 mg SQ UD PRN; Protocol PRN Reason: Hypoglycemia Protocol Stop: 12/17/18 20:47 Glucose (Dex4 Glucose) 4 - 8 tabs PO UD PRN; Protocol PRN Reason: Hypoglycemia Protocol Stop: 12/17/18 20:47 Glucose (Glucose 40%) 15 - 30 gm PO UD PRN; Protocol PRN Reason: Hypoglycemia Protocol Stop: 12/17/18 20:47 Ibuprofen (Motrin) 600 mg PO Q8H [facility] Stop: 12/18/18 13:59 Insulin Aspart (Novolog Flexpen) 0 units SC ACHS [facility] Stop: 12/17/18 20:59 Last Admin: 11/18/18 12:41 Dose: 5 units Documented by: Insulin Glargine (Lantus Solostar Pen) 0 - 27 units SC BID [facility] Stop: 12/17/18 20:59 Last Admin: 11/18/18 08:18 Dose: Not Given Documented by: Lisinopril (Zestril) 5 mg PO DAILY [facility] Stop: 12/18/18 08:59 Last Admin: 11/18/18 08:17 Dose: 5 mg Documented by: Metoprolol Succinate (Toprol Xl) 25 mg PO [facility] Stop: 12/18/18 08:59 Last Admin: 11/18/18 08:17 Dose: 25 mg Documented by: Miscellaneous (Carbohydrates For Hypoglycemia) 15 - 30 gm PO UD PRN PRN Reason: Hypoglycemia Treatment Stop: 12/17/18 20:47 Last Admin: 11/18/18 08:15 Dose: 15 gm Documented by: Pantoprazole Sodium (Protonix) 40 mg PO [facility]; Protocol Stop: 12/18/18 08:59 Last Admin: 11/18/18 08:17 Dose: 40 mg Documented by: (1) Chest pain Chest pain type: unspecified Qualified Code(s): R07.9 - Chest pain, unspecified
[2018-11-18] MEDS: IBUPROFEN 600 MG TAB PO SCH (18:24)
[2018-11-18] MEDS: COLCHICINE 0.6 MG TAB PO SCH (20:46)
[2018-11-19] MEDS: IBUPROFEN 600 MG TAB PO SCH ×2 (01:50→10:01)
[2018-11-19 05:47] LABS: Basophils # (auto) 0.01 K/uL (0-0.2); Basophils % (auto) 0.1 %; Eosinophils # (auto) 0.15 K/uL (0-0.5); Eosinophils % (auto) 2.2 %; Hematocrit (blood only) 34.7 % (42-52); Hemoglobin 11.6 g/dL (14.0-18.0); Immature Granulocytes # (auto) 0.02 K/uL (0.00-0.02); Immature Granulocytes % (auto) 0.3 %; Lymphocytes # (auto) 1.28 K/uL (1.2-3.4); Lymphocytes % (auto) 18.4 %; Mean Corpuscular Hgb Conc 33.4 g/dL (32-36); Mean Corpuscular Volume 92.8 fL (80-100); Mean Platelet Volume 9.6 fL (7.4-10.4); Monocytes # (auto) 0.68 K/uL (0.11-0.59); Monocytes % (auto) 9.8 %; Neutrophils # (auto) 4.83 K/uL (1.4-6.5); Neutrophils % (auto) 69.2 %; Platelet Count 282 K/uL (130-400); RDW Coefficient of Variation 12.6 % (11.5-14.5); RDW Standard Deviation 42.8 fL (36.4-46.3); Red Blood Count 3.74 M/uL (4.7-6.1); White Blood Count 6.97 K/uL (4.8-10.8)
[2018-11-19 06:15] LABS: BUN Creatinine Ratio 19.1 (10-20); Calcium 8.5 mg/dl (8.5-10.1); Creatinine Clr Calc Pharmacy 135.2 ml/min; Est GFR (African American) 116.6; Est GFR (Non-African American) 100.6; Magnesium 2.5 mg/dl (1.8-2.4); Potassium 3.7 mmol/L (3.5-5.1)
[2018-11-19] MEDS: ATORVASTATIN 40 MG TAB PO SCH (08:46)
[2018-11-19] MEDS: PANTOprazole 40 MG TAB PO SCH (08:46)
[2018-11-19] MEDS: BuPROPion SR 150 MG TABCR PO SCH (08:46)
[2018-11-19] MEDS: LISINOPRIL 5 MG TAB PO SCH (08:46)
[2018-11-19] MEDS: METOPROLOL SUCC 25MG EXT REL TAB PO SCH ×2 (08:46→10:02)
[2018-11-19] MEDS: ASPIRIN 81 MG ECTAB PO SCH (08:47)
[2018-11-19] MEDS: COLCHICINE 0.6 MG TAB PO SCH (08:47)
[2018-11-19] MEDS: INSULIN ASPART 100 UNITS/ML 3 ML PEN SC SCH ×2 (08:49→12:29)
[2018-11-19] MEDS: INSULIN GLARGINE SOLOSTAR 100 UNITS/ML 3 ML PEN SC SCH (08:49)
[2018-11-19] MEDS ORDERED: POTASSIUM CHLORIDE 10 MEQ TABCR PO STA (09:53)
[2018-11-19] MEDS ORDERED: METOPROLOL SUCC 25MG EXT REL TAB PO STA (10:09)
[2018-11-19] MEDS ORDERED: POTASSIUM CHLORIDE 20 MEQ TABCR PO STA (10:09)
--- NOTE | 2018-11-19 14:01 | Cardiology Progress Note ---
Date of Service November 19, 2018 Assessment & Plan (1) Pericardial effusion: symptoms resolved with combination of ibuprofen and colchicine appreciate case management looking into drug pricing to be d/c'ed home on following course: ibuprofen 600mg po tid with food for 1 month colchicine 0.6mg po bid for 3 months protonix 40mg po daily for 1 month my office will call to arrange f/u limited echo and f/u with me in 1 month ok to d/c to home (2) Thoracic aortic aneurysm: stable (3) SVT (supraventricular tachycardia): ?secondary to not wearing cpap overnight asymptomatic rate related LBBB was present will arrange for 1 week Zio patch monitor as outpatient cont home dose of metoprolol Subjective Pt seen and examined, states that he feels great. Chest discomfort and sob have all but resolved. Denies palpitations, lightheadedness or dizziness. tele reviewed: sinus rhythm with short salvos of SVT with rate related LBBB Review of Systems Review of Systems: All systems reviewed & are unremarkable except as noted in HPI & below Physical Exam Physical Exam: General: Awake, alert and oriented x 3. No acute distress. HEENT: Normocephalic, atraumatic. Pupils equal, round and reactive to light and accommodation. Extraocular muscles are intact. Anicteric sclera. Moist mucous membranes. Neck: No JVD. No bruit. Cardiovascular: Regular. Positive S-4. Normal S-1 and S-2. No S-3. No murmurs or rubs. Pulmonary: Clear to auscultation B/L. No rales, rhonchi or wheezing Abdomen: Bowel sounds x 4, soft. No rebound, guarding or tenderness. No organomegaly. Extremities: No clubbing, cyanosis or edema. +2 pedal pulses bilaterally. Skin: Warm and dry. Results & Data Vital Signs (Past 12 Hours) Vital Signs Temp Pulse Pulse Resp BP Pulse Ox 11/19/18 12:13 37.0 C 107 H 19 140/76 96 11/19/18 10:00 120 H 14 113/67 95 11/19/18 08:00 122 H 11/19/18 04:00 36.6 C 87 21 97/66 L 96
--- NOTE | 2018-11-19 14:47 | Hospitalist Progress Note ---
Date of Service November 19, 2018 Assessment & Plan (1) Pericardial effusion: (2) Chest pain: Present on admission with pleuritic chest pain Possible related to viral etiology Echo showed normal LV chamber size with mild concentric LVH, EF 55% to60%, no segmental or motion abnormality, grade 2 diastolic dysfunction, aortic valve sclerosis without significant stenosis, moderately enlarged ascending aortic aneurysm of 4.7 cm(no change compared with that of 11/2017) and small cir cumferential pericardial effusion, more pronounced anteriorly. No tamponade CXR showed possible trace right pleural effusion. Cardiology on board recommended to continue ibuprofen 600mg po tid with food for 1 month Continue colchicine 0.6mg po bid for 3 months Continue protonix 40mg po daily for 1 month Follow up with cardiology office in 1 month for repeat limited ECHO Clinically improves OK from cardiology standpoint to discharge home (3) Diabetes mellitus, type 2: A1c: 7.4 on 09/16/18 Resume metformin, ozempic on discharge On Novolog sliding scale per protocol Blood sugar remains stable Continue monitor BS (4) Hypertension: BP stable Continue metoprolol, lisinopril (5) SVT (supraventricular tachycardia): Brief episode of SVT on telemonitor Denies any asymptomatic Finding discussed with cardiology Recommended to continue home dose metoprolol Cardiology will arrange for 1 week Zio patch monitor as outpatient Follow up with cardiology outpatient Ok from cardiology standpoint to discharge home. (6) Hyperlipidemia: Continue statin (7) Depression: Continue bupropion Stable (8) GERD (gastroesophageal reflux disease): Continue PPI (9) Thoracic aortic aneurysm: H/O 4.7 centimeter ascending aortic aneurysm Echo showed ascending aortic aneurysm to remain at 4.7 cm Stable DVT Prophylaxis On SCDs/ambulation Code status Full Code Disposition Please call to schedule a follow with Dr Sullivan in 1 week Call to schedule follow up with cardiology Dr. Zimmer Subjective Pt was seen and examined Sitting in bed with no distress Pt said that he feels much better today He said that he does not have any breathing He said that he has been walking around with no distress Tele monitor showed a brief episodes of possible SVT this morning Denies any chest pain, palpitation, dizziness and SOB Physical Exam Physical Exam: General- No acute distress Head- atraumatic Eyes- PERRL, EOMI, ENT- oropharynx clear Neck- supple, no JVD Lungs- clear to auscultation Heart- regular rhythm; no murmur Abdomen- normal bowel sounds, soft, nontender Extremities- no calf tenderness Neuro- alert, oriented x 3; PERRL, EOMI; no facial palsy; no dysarthria Skin- warm & dry Results & Data Vital Signs (Past 12 Hours) Vital Signs Temp Pulse Pulse Resp BP Pulse Ox 11/19/18 12:13 37.0 C 107 H 19 140/76 96 11/19/18 10:00 120 H 14 113/67 95 11/19/18 08:00 122 H 11/19/18 04:00 36.6 C 87 21 97/66 L 96 (1) Chest pain Chest pain type: unspecified Qualified Code(s): R07.9 - Chest pain, unspecified
--- NOTE | 2018-11-19 17:14 | Discharge Summary ---
Date of Service November 19, 2018 Admission HPI Per Admitting Provider Pt is 53 y/o M with PMH DM II, HTN, dyslipidemia, h/o DVT, thoracic aortic aneurysm presented to ER from direction of PCP for CP and SOB. Pt reports is been having anterior chest pain and shortness of breath which started 1 week ago. He reports initially chest pain with inspiration. Patient states initially felt short of breath at rest but now feels short of breath with exertion. Symptoms seem improved with sitting up. Denies cough. [place] like had some sore throat a couple of days ago. Patient thinks had mild fever 4 days ago. Was seen at PCPs office and had continued symptoms so had outpatient CT chest to rule out PE today with findings of moderate pericardial effusion, trace bilateral pleural effusions, no PE identified. Pt states has been taking Tylenol intermittently without much relief. Denies diaphoresis, N/V/D/C, [place]UM[place], dizziness, syncope, vision changes, orthopnea, palpitations, choking, otalgia, rhinorrhea, abdominal pain, paresthesias, weakness, extremity weakness, extremity edema, rashes, urinary symptoms. Admission Exam Per Admitting Provider General: no acute distress, obese Head: normocephalic, atraumatic Eyes: PERRL, EOM's intact, conjunctiva non-injected, anicteric ENT: normal inspection external ears, nose, mucous membranes moist Neck: supple, trachea midline, non-tender Lungs: clear, no respiratory distress, no wheezing/rhonchi/rales CV: regular rhythm, rate 110, no murmur, no JVD, trace pretibial edema Abd: normal BS, soft, non-tender Ext: no cyanosis, no calf tenderness Neuro: A&O x 3, no focal deficits noted, normal affect Skin: warm, dry Principal Diagnosis Pericardial effusion Chest pain Diabetes Thoracic aortic aneurysm Supraventricular Tachycardia GERD Hypertention Depression Discharge Exam General- No acute distress Head- atraumatic Eyes- PERRL, EOMI, ENT- oropharynx clear Neck- supple, no JVD Lungs- clear to auscultation Heart- regular rhythm; no murmur Abdomen- normal bowel sounds, soft, nontender Extremities- no calf tenderness Neuro- alert, oriented x 3; PERRL, EOMI; no facial palsy; no dysarthria Skin- warm & dry Discharge Data Allergies Allergy/AdvReac Type Severity Reaction Status Date / Time No Known Allergies Allergy Verified 11/17/18 16:58 Consultations 11/17/18 18:10 ED Decision to Admit Stat 11/17/18 20:48 Consult Cardiology Routine Consult Case Management - Discharge Planning Routine Ordered Studies XR chest 1V portable CLINICAL HISTORY: Chest Pain COMPARISON STUDY: No previous studies for comparison. FINDINGS: Lung volumes are normal. There is no pneumothorax. No consolidation or evidence for pulmonary edema. There is mild cardiomegaly. There is a possible trace right pleural effusion. IMPRESSION: 1. Possible trace right pleural effusion. 2. Mild cardiomegaly without evidence for pulmonary edema. Electronically signed by: Shahzad Feldman M.D. 11/17/2018 4:38 PM Dictated: 11/17/18 1637 Transcribed: 11/17/18 1637 Hospital Course (1) Pericardial effusion: Secondary to acute pericarditis Most likely viral Echo showed normal LV chamber size with mild concentric LVH, EF 55% to60%, no segmental or motion abnormality, grade 2 diastolic dysfunction, aortic valve sclerosis without significant stenosis, moderately enlarged ascending aortic aneurysm of 4.7 cm(no change compared with that of 11/2017) and small circumferential pericardial effusion, more pronounced anteriorly. No tamponade Appreciate cardiology input and recommendation Has been getting NSAID's with with improved Clinically much better today (2) Chest pain: Present on admission with pleuritic chest pain Possible related to viral etiology Echo showed normal LV chamber size with mild concentric LVH, EF 55% to60%, no segmental or motion abnormality, grade 2 diastolic dysfunction, aortic valve sclerosis without significant stenosis, moderately enlarged ascending aortic aneurysm of 4.7 cm(no change compared with that of 11/2017) and small circumferential pericardial effusion, more pronounced anteriorly. No tamponade CXR showed possible trace right pleural effusion. Cardiology on board recommended to continue ibuprofen 600mg po tid with food for 1 month Continue colchicine 0.6mg po bid for 3 months Continue protonix 40mg po daily for 1 month Follow up with cardiology office in 1 month for repeat limited ECHO Clinically improves OK from cardiology standpoint to discharge home (3) Diabetes mellitus, type 2: A1c: 7.4 on 09/16/18 Resume metformin, ozempic on discharge On Novolog sliding scale per protocol Blood sugar remains stable Continue monitor BS (4) Hypertension: BP stable Continue metoprolol, lisinopril (5) SVT (supraventricular tachycardia): Brief episode of SVT on telemonitor Denies any asymptomatic Finding discussed with cardiology Recommended to continue home dose metoprolol Cardiology will arrange for 1 week Zio patch monitor as outpatient Follow up with cardiology outpatient Ok from cardiology standpoint to discharge home. (6) Hyperlipidemia: Continue statin (7) Depression: Continue bupropion Stable (8) GERD (gastroesophageal reflux disease): Continue PPI (9) Thoracic aortic aneurysm: H/O 4.7 centimeter ascending aortic aneurysm Echo showed ascending aortic aneurysm to remain at 4.7 cm Stable DVT Prophylaxis On SCDs/ambulation Code status Full Code Disposition Please call to schedule a follow with Dr Sullivan in 1 week Call to schedule follow up with cardiology Dr. Zimmer Total Time Total Time Spent Total Time Spent (In Minutes): 35 minutes Total Time Includes: Examination of the Patient, Discharge Planning, Medication Reconciliation, Communication With Other Providers and Other Discharge Plan Discharge Items Patient Disposition: Home - Self-Care Reason For Visit: PERICARDIAL EFFUSION Discharge Diagnosis: Pericardial effusion Chest pain Diabetes Thoracic aortic aneurysm Supraventricular Tachycardia GERD Hypertention Depression Discharge Goals: Decrease discomfort, Improve disease control, Increase independence and Improve nutritional status Activity: Resume your previous activity Non-emergency contact: Primary Care Provider and Building Mechanic Call non-emergency contact if: you have any medication questions, your pain is unusual for you and your temperature is above 101 Follow-up/Referrals: Claus Sullivan MD [Primary Care Provider] - Diet: Carb Consistent or DM2 Addtl Provider Instructions: Please call your primary care provider to schedule a follow up appointment within 1 week Please call your Cardiology to schedule a follow up appointment within 1 week to arrange for the ZIO patch monitor Continue Ibuprofen for 1 months Continue Colchicine for 3 months Monitor for abnormal bleeding Check BMP in 1 to 2 weeks to monitor kidney function Prescriptions: New pantoprazole 40 mg Tablet,Delayed Release (Dr/Ec) 40 mg PO QAM 30 Days Qty: 30 RF: 0 ibuprofen 600 mg Tablet 600 mg PO Q8H 30 Days Qty: 90 RF: 0 colchicine [Colcrys] 0.6 mg Tablet 0.6 mg PO BID 90 Days Qty: 180 RF: 0 Continued atorvastatin 40 mg Tablet 40 mg PO DAILY RF: 0 bupropion HCl 150 mg Tablet Sustained-Release 12 Hr 150 mg PO BID RF: 0 Lantus U-100 Insulin 100 unit/mL Solution 54 unit SUBCUT QAM RF: 0 aspirin [Aspir-81] 81 mg Tablet,Delayed Release (Dr/Ec) 81 mg PO QAM RF: 0 lisinopril 5 mg Tablet 5 mg PO DAILY RF: 0 metoprolol succinate 25 mg Tablet Extended Release 24 Hr 25 mg PO QAM RF: 0 Ozempic 1 mg/0.75 mL (2 mg/1.5 mL) Pen Injector 1 mg subcut WK RF: 0 metformin 500 mg tablet 1,000 mg PO BID RF: 0 Discontinued omeprazole 20 mg Capsule,Delayed Release(Dr/Ec) 20 mg PO QAM RF: 0 Stand-Alone Forms: Call Back Authorization, [facility] Discharge Orders: Discharge Order (Routine); Ordered 11/19/18 Ordered By: Donnell Diaz Admission Data Admit Date/Time: 11/17/18 18:58 Attending Provider: Donnell Diaz Admit Provider: Elle Wilkinson Primary Care Provider: Claus Sulilvan Other Providers: Elle Wilkinson ; Leo Hogue Service: Telemetry Medical Other Interventions: Discharge Summary Assessment (RN) Last Done: 11/19/18 15:30 DC Date/Time DO NOT enter until pt leaves facility: 11/19/18 16:00
== END 2018-11-19 16:00 | disposition home or self-care (01) | DRG 315 ==
LOC: ED 15:54 → SUATTDRO 18:58 → 2N 18:58

== ENCOUNTER 2022-05-07 11:42 | Inpatient (IN) ==
[2022-05-07] MEDS ORDERED: SODIUM CHLORIDE 0.9% 500 ML IV STA (11:54)
[2022-05-07] MEDS ORDERED: ONDANSETRON INJ 2 MG/ML 2 ML VIAL IV STA (11:54)
[2022-05-07] MEDS ORDERED: MoRPHine SULFATE 4 MG/ML 1 ML CARP\\VIAL IV STA (11:54)
[2022-05-07] MEDS ORDERED: MoRPHine SULFATE 4 MG/ML 1 ML CARP\\VIAL IV PRN ×2 (11:54→18:12)
[2022-05-07] MEDS ORDERED: VANCOMYCIN HCL 2,000 MG in SODIUM CHLORIDE 0.9% 500 ML IV ONE (11:59)
[2022-05-07] MEDS ORDERED: cefTRIAXone SODIUM 2,000 MG/70 ML BAG IV STA (11:59)
[2022-05-07] MEDS ORDERED: VANCOMYCIN CONSULT ACTIVE PRN (11:59)
--- NOTE | 2022-05-07 12:04 | Emergency Department Note ---
Impression & Plan Cellulitis of left lower extremity ED Provider Note NAME: MASSIEL CUELLAR AGE: 56 SEX: M : 1965 ARRIVES VIA: Walk-In INFORMANT: Patient, ED PROVIDER(S): José Luis Rutherford DO CHIEF COMPLAINT: Leg swelling HPI: The patient is a 56-year-old male who presented to the emergency department for an evaluation of leg swelling. The patient states that he has had ongoing and worsening leg swelling over the course the last week. He was seen in our facility recently for similar complaints. At that time he was started on 2 antibiotics. He states that he has been compliant with the outpatient antibiotics. He was started on Keflex and doxycycline. He had a follow-up appointment with his primary care physician today. He went to the family doctor and was advised to come the emergency department for IV antibiotics and likely admission to the hospital for further evaluation. The patient does have a history of DVT in the past. He states that he has been compliant with his outpatient medications. He denies having any chest pain or difficulty breathing. He has noticed fever and chills. The patient denies having any rec ent trauma. ROS: See above HPI for pertinent positives & negatives. A total of 10 systems reviewed and were otherwise negative. PAST MEDICAL HISTORY: See Below PAST SURGICAL HISTORY: See Below FAMILY HISTORY: See Below SOCIAL HISTORY: See Below HOME MEDICATIONS: See Below ALLERGIES: See Below VITALS: See Below PHYSICAL EXAMINATION: GENERAL: The patient is awake and alert. He is somewhat anxious appearing. EYES: The conjunctivae are clear. The pupils are round and reactive. EARS, NOSE, MOUTH AND THROAT: The nose is without any evidence of any deformity. NECK: The neck is nontender and supple. RESPIRATORY: Normal respiratory effort is noted there is no evidence of wheezing rhonchi or rales CARDIOVASCULAR: Regular rate and rhythm noted there no murmurs rubs or gallops normal S1 normal S2. GASTROINTESTINAL: The abdomen is soft. Abdomen is nontender. MUSCULOSKELETAL/EXTREMITIES: There is no evidence of gross deformity full range of motion is noted in the hips and shoulders. SKIN: There is symmetric swelling to the left lower extremity. There is erythem a noted in the entire left leg. Skin is warm and dry. NEUROLOGIC: Patient is awake alert and oriented x3 MEDICAL DECISION MAKING: The patient is a 56-year-old male who presented to the emergency department for an evaluation of lower extremity swelling. The patient was seen in our facility recently for similar complaints. He was started on multiple antibiotics for cellulitis. The patient has a history of DVT as well. I discussed the patient's laboratory and radiographic studies with him. He was seen by his primary care physician today and sent to the emergency department specifically for evaluation of admission and IV antibiotics. The patient was treated with IV antibiotics in emergency department. He was reevaluated multiple times. On perez bsequent reevaluation he was feeling much better. He was also given pain medication. [facility] agreed to evaluate the patient in the emergency department for further management and disposition. Triage Nursing notes reviewed. Prior medical records reviewed Vital Signs: reviewed and remarkable for fever and tachycardia. Differential diagnosis: Cellulitis, abscess, MRSA infection, DVT, necrotizing fasciitis, dermatitis, drug eruption, allergic reaction, as well as other pathologies. ER treatment provided: See below Diagnostics interpreted by me: ECG: [none] Cardiac Monitoring: An order was placed for continuous cardiac monitoring. The monitor shows a rate of 101 bpm with sinus tachycardia. Laboratory studies: As stated above and show below. Imaging studies: See below Consultation(s): I discussed this case with Yesy [facility] have agreed to evaluate the patient in the emergency department for further management and disposition. Past Med/Surg History Medical History Depression Diabetes mellitus, type 2 IDDM DVT (deep venous thrombosis) 15 YEARS AGO Gastroparesis GERD (gastroesophageal reflux disease) Hyperlipidemia Hypertension Obesity Sleep apnea NO DEVICE Thoracic aortic aneurysm 4.7cm on echo, 2018 Surgical History History of eye surgery MUSCULAR SURGERY X2 History of herniorrhaphy CHILDHOOD Family History Other Cancer Diabetes Social History Smoking Status: Former smoker Second Hand Exposure: No; Hx Alcohol Use: Yes Alcohol type: other Alcohol Intake Frequency Comment: 2 times a month Hx Substance Use: No Preferred Language: Kyrgyz Communication Ability: Effective Pilot Teacher Required: No Beliefs That Will Affect Care: None Current Living Situation: Alone Feels Safe at Home: Yes Assistive Devices: Apnea Monitor Allergies Allergies Allergy/AdvReac Type Severity Reaction Status Date / Time No Known Allergies Allergy Verified 11/17/18 16:58 Home Meds Home Medications Medication Instructions Recorded Confirmed aspirin 81 mg tablet,delayed 81 mg PO QAM 04/08/18 11/17/18 release (Aspir-) atorvastatin 40 mg tablet 40 mg PO DAILY 04/08/18 11/17/18 bupropion HCl 150 mg tablet,12 hr 150 mg PO BID 04/08/18 11/17/18 sustained-release insulin glargine 100 unit/mL 54 unit subcut QAM 04/08/18 11/17/18 subcutaneous solution (Lantus U-100 Insulin) lisinopril 5 mg tablet 5 mg PO DAILY 04/08/18 11/17/18 metoprolol succinate 25 mg 25 mg PO QAM 04/08/18 11/17/18 tablet,extended release 24 hr semaglutide 1 mg/dose (2 mg/1.5 1 mg subcut WK 04/08/18 11/17/18 mL) subcutaneous pen injector (Ozempic) metformin 500 mg tablet 1,000 mg PO BID 11/17/18 11/17/18 Previous Rx's Medication Instructions Recorded cephalexin 500 mg capsule 500 mg PO Q6H 10 days #40 caps 05/04/22 doxycycline hyclate 100 mg tablet 100 mg PO BID 10 days #20 tabs 05/04/22 Results & Data (ED) Vital Signs Vital Signs - 24 hr 05/07/22 11:43 05/07/22 12:21 05/07/22 12:48 Temperature 37.8 C H Temperature Source Temporal Artery Scan Pulse Rate 115 H Pulse Rate [Apical] 107 H 108 H Respiratory Rate 18 20 18 Respiratory Effort / Characteristics Non-Labored Non-Labored Respiratory Depth Normal Normal Blood Pressure 137/87 Blood Pressure [Right Arm] 126/77 114/72 Blood Pressure Mean 103 Blood Pressure Mean [Right Arm] 93 86 Pulse Oximetry 97 95 96 Oxygen Delivery Method Room Air Room Air Room Air Sepsis Recent Fever Within 48 Hours Yes Sepsis New/Unexplained Change in Mental Status No Sepsis Action Taken by Nursing No Action Required 05/07/22 13:51 Temperature Temperature Source Pulse Rate Pulse Rate [Apical] 101 H Respiratory Rate 18 Respiratory Effort / Characteristics Non-Labored Spontaneous Respiratory Depth Normal Blood Pressure Blood Pressure [Right Arm] 123/78 Blood Pressure Mean Blood Pressure Mean [Right Arm] 93 Pulse Oximetry 97 Oxygen Delivery Method Room Air Sepsis Recent Fever Within 48 Hours Sepsis New/Unexplained Change in Mental Status Sepsis Action Taken by Custodial Medications Current Medication List: was personally reviewed by me Laboratory Data Attestation: I reviewed the patient's lab results. Result diagrams: 05/07/22 11:59 05/07/22 11:59 Lab Results 05/07/22 05/07/22 05/07/22 Range/Units 11:59 11:59 11:59 WBC 9.81 (4.8-10.8) K/ul RBC 4.37 L (4.63-6.08) M/uL Hgb 14.3 (14.0-18.0) g/dl Hct 40.5 (40.1-51.0) % MCV 92.7 (80.0-100.0) fL MCH 32.7 (25.0-34.0) pg MCHC 35.3 (32.0-36.0) g/dL RDW Std Deviation 42.1 (36.4-46.3) fL RDW Coeff of Jesus 12.2 (11.5-14.5) % Plt Count 240 (130-400) K/uL MPV 10.5 (9.4-12.4) fL Immature Gran % (Auto) 0.4 % Neut % (Auto) 83.9 % Lymph % (Auto) 8.6 % Gooding % (Auto) 6.9 % Eos % (Auto) 0.0 % Baso % (Auto) 0.2 % Neut # (Auto) 8.23 H (1.4-6.5) K/uL Lymph # (Auto) 0.84 L (1.2-3.4) K/uL Gooding # (Auto) 0.68 (0.24-0.82) K/uL Eos # (Auto) 0.00 (0-0.50) K/uL Baso # (Auto) 0.02 (0-0.2) K/uL Immature Gran # (Auto) 0.04 H (0.00-0.02) K/uL ESR (0-20) mm/hr PT 11.1 (9.0-12.0) Seconds INR 1.0 (0.9-1.1) APTT 31.7 H (21.0-31.0) Seconds PTT Ratio 1.2 Sodium 135 L (136-145) mmol/L Potassium 3.7 (3.5-5.1) mmol/L Chloride 100 (98-107) mmol/L Carbon Dioxide 26 (21-32) mmol/L Anion Gap 9 (3-11) BUN 16 (6-23) mg/dl Creatinine 0.90 (0.6-1.4) mg/dl Est Cr Clr Drug Dosing 110.8 ml/min Est GFR ( Amer) 108.7 ml/min Est GFR (Non-Af Amer) 93.8 ml/min BUN/Creatinine Ratio 17.8 (10-20) Glucose 214 H (70-99(Fasting)) mg/dl Lactate (0.4-2.0) mmol/L Calcium 9.3 (8.5-10.1) mg/dl Total Bilirubin 0.8 (0.2-1.0) mg/dl AST 17 (13-39) U/L ALT 24 (7-52) U/L Alkaline Phosphatase 84 (34-104) U/L Troponin I High Sens 6.4 (0-20) pg/ml C-Reactive Protein 16.04 H (0-0.5) mg/dl Total Protein 7.6 (6.0-8.3) gm/dl Albumin 3.9 (3.4-5.0) gm/dl Globulin 3.7 (2.5-4.0) gm/dl Albumin/Globulin Ratio 1.1 (0.9-2) Procalcitonin (0-0.5) ng/ml SARS-CoV-2, RNA, NAAT (NEGATIVE) 05/07/22 05/07/22 05/07/22 Range/Units 11:59 11:59 11:59 WBC (4.8-10.8) K/ul RBC (4.63-6.08) M/uL Hgb (14.0-18.0) g/dl Hct (40.1-51.0) % MCV (80.0-100.0) fL MCH (25.0-34.0) pg MCHC (32.0-36.0) g/dL RDW Std Deviation (36.4-46.3) fL RDW Coeff of Jesus (11.5-14.5) % Plt Count (130-400) K/uL MPV (9.4-12.4) fL Immature Gran % (Auto) % Neut % (Auto) % Lymph % (Auto) % Gooding % (Auto) % Eos % (Auto) % Baso % (Auto) % Neut # (Auto) (1.4-6.5) K/uL Lymph # (Auto) (1.2-3.4) K/uL Gooding # (Auto) (0.24-0.82) K/uL Eos # (Auto) (0-0.50) K/uL Baso # (Auto) (0-0.2) K/uL Immature Gran # (Auto) (0.00-0.02) K/uL ESR 71 H (0-20) mm/hr PT (9.0-12.0) Seconds INR (0.9-1.1) APTT (21.0-31.0) Seconds PTT Ratio Sodium (136-145) mmol/L Potassium (3.5-5.1) mmol/L Chloride (98-107) mmol/L Carbon Dioxide (21-32) mmol/L Anion Gap (3-11) BUN (6-23) mg/dl Creatinine (0.6-1.4) mg/dl Est Cr Clr Drug Dosing ml/min Est GFR ( Amer) ml/min Est GFR (Non-Af Amer) ml/min BUN/Creatinine Ratio (10-20) Glucose (70-99(Fasting)) mg/dl Lactate 0.9 (0.4-2.0) mmol/L Calcium (8.5-10.1) mg/dl Total Bilirubin (0.2-1.0) mg/dl AST (13-39) U/L ALT (7-52) U/L Alkaline Phosphatase (34-104) U/L Troponin I High Sens (0-20) pg/ml C-Reactive Protein (0-0.5) mg/dl Total Protein (6.0-8.3) gm/dl Albumin (3.4-5.0) gm/dl Globulin (2.5-4.0) gm/dl Albumin/Globulin Ratio (0.9-2) Procalcitonin 0.20 (0-0.5) ng/ml SARS-CoV-2, RNA, NAAT (NEGATIVE) 05/07/22 Range/Units 12:25 WBC (4.8-10.8) K/ul RBC (4.63-6.08) M/uL Hgb (14.0-18.0) g/dl Hct (40.1-51.0) % MCV (80.0-100.0) fL MCH (25.0-34.0) pg MCHC (32.0-36.0) g/dL RDW Std Deviation (36.4-46.3) fL RDW Coeff of Jesus (11.5-14.5) % Plt Count (130-400) K/uL MPV (9.4-12.4) fL Immature Gran % (Auto) % Neut % (Auto) % Lymph % (Auto) % Gooding % (Auto) % Eos % (Auto) % Baso % (Auto) % Neut # (Auto) (1.4-6.5) K/uL Lymph # (Auto) (1.2-3.4) K/uL Gooding # (Auto) (0.24-0.82) K/uL Eos # (Auto) (0-0.50) K/uL Baso # (Auto) (0-0.2) K/uL Immature Gran # (Auto) (0.00-0.02) K/uL ESR (0-20) mm/hr PT (9.0-12.0) Seconds INR (0.9-1.1) APTT (21.0-31.0) Seconds PTT Ratio Sodium (136-145) mmol/L Potassium (3.5-5.1) mmol/L Chloride (98-107) mmol/L Carbon Dioxide (21-32) mmol/L Anion Gap (3-11) BUN (6-23) mg/dl Creatinine (0.6-1.4) mg/dl Est Cr Clr Drug Dosing ml/min Est GFR ( Amer) ml/min Est GFR (Non-Af Amer) ml/min BUN/Creatinine Ratio (10-20) Glucose (70-99(Fasting)) mg/dl Lactate (0.4-2.0) mmol/L Calcium (8.5-10.1) mg/dl Total Bilirubin (0.2-1.0) mg/dl AST (13-39) U/L ALT (7-52) U/L Alkaline Phosphatase (34-104) U/L Troponin I High Sens (0-20) pg/ml C-Reactive Protein (0-0.5) mg/dl Total Protein (6.0-8.3) gm/dl Albumin (3.4-5.0) gm/dl Globulin (2.5-4.0) gm/dl Albumin/Globulin Ratio (0.9-2) Procalcitonin (0-0.5) ng/ml SARS-CoV-2, RNA, NAAT NEGATIVE (NEGATIVE) Administered Medications Vancomycin HCl 2,000 mg/ (Sodium Chloride) 540 mls @ 200 mls/hr IV NOW ONE Stop: 05/07/22 14:40 Last Admin: 05/07/22 13:20 Dose: 200 mls/hr Documented By: JLT Discontinued Medications Sodium Chloride (Nss) 500 mls @ 999 mls/hr IV .Q31M STA Stop: 05/07/22 12:24 Last Infusion: 05/07/22 12:49 Dose: 0 mls/hr Documented By: Admin: 05/07/22 12:17 Dose: 999 mls/hr Documented By: DANNY Ceftriaxone Sodium (Rocephin) 2,000 mg in 70 mls @ 140 mls/hr IV NOW STA Stop: 05/07/22 12:28 Last Infusion: 05/07/22 13:15 Dose: 0 mls/hr Documented By: Admin: 05/07/22 12:41 Dose: 140 mls/hr Documented By: DANNY Morphine Sulfate (Morphine Sulfate 4 Mg/Ml 1 Ml Carp\Vial) 4 mg IV NOW STA Stop: 05/07/22 11:55 Last Admin: 05/07/22 12:17 Dose: 4 mg Documented By: DANNY Ondansetron HCl (Ondansetron Inj 2 Mg/Ml 2 Ml Vial) 4 mg IV NOW STA Stop: 05/07/22 11:55 Last Admin: 05/07/22 12:17 Dose: 4 mg Documented By: DANNY Imaging Data Radiologist's Impression: Venous Doppler Study 05/07/22 11:54 LEFT LOWER EXTREMITY VENOUS DOPPLER HISTORY: Acute pain and swelling of the left lower extremity lin madsen COMPARISON STUDY: 05/04/2022 FINDINGS: There is normal compressibility, flow, and augmentation within the left lower extremity deep venous system. Subcutaneous edema. IMPRESSION: No DVT within the left lower extremity. ACT 112: Negative or not required by law. Electronically signed by: Brent aMtos M.D. 05/07/2022 1:49 PM Discharge Plan Visit Data Chief Complaint: Referred by Doctor Stated Complaint: CELULITIS LEFT LEG, FEVER ED Provider: José Luis Rutherford Discharge Problem: Cellulitis of left lower extremity Patient Disposition: Being Evaluated by Hospitalist Forms Stand Alone Forms: My [facility] Prescriptions Prescriptions: No Action atorvastatin 40 mg Tablet 40 mg PO DAILY bupropion HCl 150 mg Tablet Sustained-Release 12 Hr 150 mg PO BID Lantus U-100 Insulin 100 unit/mL Solution 54 unit SUBCUT QAM aspirin [Aspir-81] 81 mg Tablet,Delayed Release (Dr/Ec) 81 mg PO QAM lisinopril 5 mg Tablet 5 mg PO DAILY metoprolol succinate 25 mg Tablet Extended Release 24 Hr 25 mg PO QAM Ozempic 1 mg/0.75 mL (2 mg/1.5 mL) Pen Injector 1 mg subcut WK Rx Instructions: ADMINISTER THIS MEDICATION EVERY WEDNESDAY metformin 500 mg tablet 1,000 mg PO BID Rx Instructions: THIS MEDICATION IS CURRENTLY BEING HELD for 48 hours after IVP dye on 11/17/18 doxycycline hyclate 100 mg tablet 100 mg PO BID 10 Days Qty: 20 0RF Rx Instructions: May use tablet or capsule, or monohydrate. cephalexin 500 mg capsule 500 mg PO Q6H 10 Days Qty: 40 0RF Referrals Referrals: Claus Sullivan MD [Primary Care Provider] -
[2022-05-07 12:27] LABS: Basophils # (auto) 0.02 K/uL (0-0.2); Basophils % (auto) 0.2 %; Hematocrit (blood only) 40.5 % (40.1-51.0); Hemoglobin 14.3 g/dl (14.0-18.0); Immature Granulocytes # (auto) 0.04 K/uL (0.00-0.02); Immature Granulocytes % (auto) 0.4 %; Lymphocytes # (auto) 0.84 K/uL (1.2-3.4); Lymphocytes % (auto) 8.6 %; Mean Corpuscular Hemoglobin 32.7 pg (25.0-34.0); Mean Corpuscular Hgb Conc 35.3 g/dL (32.0-36.0); Mean Corpuscular Volume 92.7 fL (80.0-100.0); Mean Platelet Volume 10.5 fL (9.4-12.4); Monocytes # (auto) 0.68 K/uL (0.24-0.82); Monocytes % (auto) 6.9 %; Neutrophils # (auto) 8.23 K/uL (1.4-6.5); Neutrophils % (auto) 83.9 %; Platelet Count 240 K/uL (130-400); RDW Coefficient of Variation 12.2 % (11.5-14.5); RDW Standard Deviation 42.1 fL (36.4-46.3); Red Blood Count 4.37 M/uL (4.63-6.08); White Blood Count 9.81 K/ul (4.8-10.8)
[2022-05-07 12:37] LABS: Partial Thromboplastin Ratio 1.2; Partial Thromboplastin Time 31.7 Seconds (21.0-31.0); Prothrombin Time 11.1 Seconds (9.0-12.0)
[2022-05-07 12:47] LABS: Albumin Globulin Ratio 1.1 (0.9-2); Albumin Level 3.9 gm/dl (3.4-5.0); BUN Creatinine Ratio 17.8 (10-20); Bilirubin,Total 0.8 mg/dl (0.2-1.0); C Reactive Protein 16.04 mg/dl (0-0.5); Calcium 9.3 mg/dl (8.5-10.1); Creatinine Clr Calc Pharmacy 110.8 ml/min; Est GFR (African American) 108.7 ml/min; Est GFR (Non-African American) 93.8 ml/min; Globulin 3.7 gm/dl (2.5-4.0); Potassium 3.7 mmol/L (3.5-5.1); Total Protein 7.6 gm/dl (6.0-8.3)
[2022-05-07 12:57] LABS: Troponin I High Sensitivity 6.4 pg/ml (0-20)
--- NOTE | 2022-05-07 13:50 | Ultrasound Report ---
LEFT LOWER EXTREMITY VENOUS DOPPLER HISTORY: Acute pain and swelling of the left lower extremity lin madsen COMPARISON STUDY: 05/04/2022 FINDINGS: There is normal compressibility, flow, and augmentation within the left lower extremity rhianna p venous system. Subcutaneous edema. IMPRESSION: No DVT within the left lower extremity. ACT 112: Negative or not required by law. Electronically signed by: Brent Matos M.D. 05/07/2022 1:49 PM
--- NOTE | 2022-05-07 14:18 | History & Physical Report ---
Date of Service May 07, 2022 Assessment & Plan (1) Cellulitis of left lower extremity: Plan: - Admit to med surg - Failed outpt therapy with keflex and doxycycline - ceftriaxone and vanc IV in started in the ER- will continue ceftriaxone alone as long as MRSA swab nose is neg - Inflammatory markers with ESR and CRP elevated on admission - TMax 37.8, HR in the low 90s during exam, does not currently appear septic - Follow blood cultures x 2 - Outlined with skin marker at bedside to ensure does not cross the boarder with antibiotic therapy, monitor - Hx of DVT in the left leg 15 years ago, cause unknown (pt cant remember), repat US of the left leg on 05/04 and today was negative for acute DVT. (2) Diabetes mellitus, type 2: Plan: - Uses insulin sliding scale - Check A1C with am labs - Does not use lantus anymore with weight loss of 55 lbs in the past year (3) Hypertension: Plan: - Cont lisinopril and amlodipine (4) Hyperlipidemia: Plan: - Cont statin therapy - pt reports using atorvastatin 40 mg every other day - dayteam to discuss if 20 mg daily would be a better option - Check lipid panel with am labs (5) Obesity: Plan: - Improving with diet and exercise - BMI of 32.6 currently (6) Depression: Plan: - Continue wellbutrin DVT ppx: - Teds, scds right leg due to cellulitis CODE: Full code Dispo: From home, likely to go home in 1-2 days (7) GERD (gastroesophageal reflux disease): (8) Sepsis: History of Present Illness Chief Complaint: Left leg cellulitis, failure of outpatient antibiotics Primary Care Provider: Claus Sullivan MD This is a 56-year-old male with PMHx of DM type II HLD, SVT, gastroparesis, obesity with a BMI of 32.6, BPH, MDD who presented to the ER on 05/04 for left lower extremity cellulitis. He was started on Keflex and doxycycline and a venous duplex of the lower extremity was done and was negative. Importantly at that time his erythema was just above the ankle to the medial calf at time of that visit. Now he reports fever, increased left lower leg pain, redness which wraps around the whole calf muscle and was seen by PCP earlier this morning who referred him back to the ER for worsening symptoms despite antibiotic therapy. Pt reports that he had been taking double doses of his antibiotics because it wasn't really working since Wednesday. He notes he initially started having fevers, chills, sweats last Wednesday and that throughout the past few days he has had several fevers but did not take his temperature. Appetite has been down since last Wednesday. Pt reports intentionally losing weight of 55 lbs in the past year with participating in a diet/exercise plan. His pain is currently rated at 8/10 despite having a dose of Morphine 4 mg IV. He was unable to walk into the ER on this foot due to pain. Pt works for [employer] at [employer] with [employer] and is on his feet quite a bit and it has been difficult the past couple of days. Pt also notes having a blood clot about 15 years ago in the left leg but cannot recall what it was caused from. He denies any known family hx or personal hx of clotting disorders. Pt does not smoke for the past 20 years, and does not drink alcohol. No other acute complaints. Elevated CRP of 16 and ESR of 71 today. Failed outpatient antibiotic treatment of left lower leg cellulitis. Allergies Allergy/AdvReac Type Severity Reaction Status Date / Time empagliflozin AdvReac Severe EXTREME Verified 05/07/22 15:03 [From Jardiance] DROWSINESS/EXCESSIVE URINATION/DEHYDRATION Home Medications Medication Instructions Recorded Confirmed Type atorvastatin 40 mg tablet 40 mg PO DAILY 04/08/18 05/07/22 History bupropion HCl 150 mg tablet,12 hr 150 mg PO BID 04/08/18 05/07/22 History sustained-release lisinopril 5 mg tablet 5 mg PO DAILY 04/08/18 05/07/22 History metoprolol succinate 25 mg 25 mg PO QAM 04/08/18 05/07/22 History tablet,extended release 24 hr cephalexin 500 mg capsule 500 mg PO Q6H 10 days #40 caps 05/04/22 05/07/22 Rx doxycycline hyclate 100 mg tablet 100 mg PO BID 10 days #20 tabs 05/04/22 05/07/22 Rx acetaminophen 500 mg tablet 500 mg PO DIRECTED PRN Pain 05/07/22 05/07/22 History (Tylenol Extra Strength) alfuzosin 10 mg tablet,extended 10 mg PO QAM 05/07/22 05/07/22 History release 24 hr aspirin 81 mg tablet,delayed 81 mg PO DAILY 05/07/22 05/07/22 History release dulaglutide 4.5 mg/0.5 mL 4.5 mg subcut WK 05/07/22 05/07/22 History subcutaneous pen injector (Trulicity) finasteride 5 mg tablet 5 mg PO DAILY 05/07/22 05/07/22 History Past Med/Surg History Medical History Depression Diabetes mellitus, type 2 IDDM DVT (deep venous thrombosis) 15 YEARS AGO Gastroparesis GERD (gastroesophageal reflux disease) Hyperlipidemia Hypertension Obesity Sleep apnea NO DEVICE Thoracic aortic aneurysm 4.7cm on echo, 2018 Surgical History History of eye surgery MUSCULAR SURGERY X2 History of herniorrhaphy CHILDHOOD Family History Other Cancer Diabetes Social History Smoking Status: Former smoker Second Hand Exposure: No; Hx Alcohol Use: Yes Alcohol type: other Alcohol Intake Frequency Comment: 2 times a month Hx Substance Use: No Preferred Language: Danish Communication Ability: Effective Marketing Strategy Manager Required: No Beliefs That Will Affect Care: None Current Living Situation: Alone Feels Safe at Home: Yes Assistive Devices: Apnea Monitor Review of Systems Review of Systems: Constitutional: As per HPI , Eyes: No diplopia, no worsening or blurred vision ENT: normal hearing, no trouble swallowing Respiratory: No cough, sputum, dyspnea at rest or on exertion Cardiovascular: No chest pain, tightness or palpitations Abdomen: No pain, nausea, vomiting, diarrhea or constipation Musculoskeletal: No joint pain, calf pain, swelling Neurologic: No weakness, numbness/tingling, or balance problems Psychiatric: No anxiety or depression Skin: redness over the left lower leg Physical Exam Physical Exam: General: awake, alert, no apparent distress, obese, BMI of 32.6 Head: Normocephalic, atraumatic ENT: PERRL, EOMI, no pharyngeal exudate, mucous membranes moist Chest: Clear to auscultation, on room air, no adventitious breath sounds Cardiac: Regular rate and rhythm, + systolic ejection murmur grade II/, no JVD, normal peripheral pulses, good capillary refill Abdominal: NABS x 4 quadrants, soft, nondistended, nontender to palpation, no rebound or guarding Extremities: LLE with erythema, warmth, pain with touch. Otherwise normal inspection, no peripheral edema or erythema, calfs nontender to palpation Psych: Normal mood and affect Skin: LLE erythema, warmth, surrounding the entire calf muscle, streaking redness going up the inner thigh, does not involve the foot. Cracked skin on foot. Neuro: AAO x 3, strength intact bilaterally and rated 5/5, no motor deficits, speech is clear, no peripheral sensory deficits Results & Data Results & Data ([facility]) Vital Signs (Past 12 Hours) Vital Signs Temp Pulse Pulse Resp BP BP Pulse Ox 05/07/22 13:51 101 H 18 123/78 97 05/07/22 12:48 108 H 18 114/72 96 05/07/22 12:21 107 H 20 126/77 95 05/07/22 11:43 37.8 C H 115 H 18 137/87 97 O2 Del Method 05/07/22 13:51 Room Air 05/07/22 12:48 Room Air 05/07/22 12:21 Room Air 05/07/22 11:43 Room Air Laboratory Results 05/07/22 12:31 Aerobic Blood Culture - Pending Blood Anaerobic Blood Culture - Pending 05/07/22 11:59 Aerobic Blood Culture - Pending Blood Anaerobic Blood Culture - Pending 05/07/22 05/07/22 05/07/22 12:25 11:59 11:59 WBC RBC Hgb Hct MCV MCH MCHC RDW Std Deviation RDW Coeff of Jesus Plt Count MPV Immature Gran % (Auto) Neut % (Auto) Lymph % (Auto) [place] % (Auto) Eos % (Auto) Baso % (Auto) Neut # (Auto) Lymph # (Auto) [place] # (Auto) Eos # (Auto) Baso # (Auto) Immature Gran # (Auto) ESR 71 H PT INR APTT PTT Ratio Sodium Potassium Chloride Carbon Dioxide Anion Gap BUN Creatinine Est Cr Clr Drug Dosing Est GFR ( Amer) Est GFR (Non-Af Amer) BUN/Creatinine Ratio Glucose Lactate 0.9 Calcium Total Bilirubin AST ALT Alkaline Phosphatase Troponin I High Sens C-Reactive Protein Total Protein Albumin Globulin Albumin/Globulin Ratio Procalcitonin SARS-CoV-2, RNA, NAAT NEGATIVE 05/07/22 05/07/22 05/07/22 11:59 11:59 11:59 WBC RBC Hgb Hct MCV MCH MCHC RDW Std Deviation RDW Coeff of Jesus Plt Count MPV Immature Gran % (Auto) Neut % (Auto) Lymph % (Auto) [place] % (Auto) Eos % (Auto) Baso % (Auto) Neut # (Auto) Lymph # (Auto) [place] # (Auto) Eos # (Auto) Baso # (Auto) Immature Gran # (Auto) ESR PT 11.1 INR 1.0 APTT 31.7 H PTT Ratio 1.2 Sodium 135 L Potassium 3.7 Chloride 100 Carbon Dioxide 26 Anion Gap 9 BUN 16 Creatinine 0.90 Est Cr Clr Drug Dosing 110.8 Est GFR ( Amer) 108.7 Est GFR (Non-Af Amer) 93.8 BUN/Creatinine Ratio 17.8 Glucose 214 H Lactate Calcium 9.3 Total Bilirubin 0.8 AST 17 ALT 24 Alkaline Phosphatase 84 Troponin I High Sens 6.4 C-Reactive Protein 16.04 H Total Protein 7.6 Albumin 3.9 Globulin 3.7 Albumin/Globulin Ratio 1.1 Procalcitonin 0.20 SARS-CoV-2, RNA, NAAT 05/07/22 11:59 WBC 9.81 RBC 4.37 L Hgb 14.3 Hct 40.5 MCV 92.7 MCH 32.7 MCHC 35.3 RDW Std Deviation 42.1 RDW Coeff of Jesus 12.2 Plt Count 240 MPV 10.5 Immature Gran % (Auto) 0.4 Neut % (Auto) 83.9 Lymph % (Auto) 8.6 [place] % (Auto) 6.9 Eos % (Auto) 0.0 Baso % (Auto) 0.2 Neut # (Auto) 8.23 H Lymph # (Auto) 0.84 L [place] # (Auto) 0.68 Eos # (Auto) 0.00 Baso # (Auto) 0.02 Immature Gran # (Auto) 0.04 H ESR PT INR APTT PTT Ratio Sodium Potassium Chloride Carbon Dioxide Anion Gap BUN Creatinine Est Cr Clr Drug Dosing Est GFR ( Amer) Est GFR (Non-Af Amer) BUN/Creatinine Ratio Glucose Lactate Calcium Total Bilirubin AST ALT Alkaline Phosphatase Troponin I High Sens C-Reactive Protein Total Protein Albumin Globulin Albumin/Globulin Ratio Procalcitonin SARS-CoV-2, RNA, NAAT Diagnostic Findings Venous Doppler Study 05/07/22 11:54 LEFT LOWER EXTREMITY VENOUS DOPPLER HISTORY: Acute pain and swelling of the left lower extremity lin madsen COMPARISON STUDY: 05/04/2022 FINDINGS: There is normal compressibility, flow, and augmentation within the left lower extremity deep venous system. Subcutaneous edema. IMPRESSION: No DVT within the left lower extremity. ACT 112: Negative or not required by law. Electronically signed by: Brent Matos M.D. 05/07/2022 1:49 PM Code Status & VTE Plan Code Status Full code - discussed with patient at bedside Supervising Physician Co-Signing Physician Notes I have seen and examined the patient and have discussed the case with the provider above. I agree with the assessment and plan as stated with the following exceptions. This is a 56-year-old man presenting with sepsis secondary to cellulitis of the left lower extremity. He was resuscitated in the ER with IV fluids and broad-spectrum antibiotics. There is no clear source of infection, such as no wound present. There is no involvement of his foot. Onychomycosis is present. There is slight swelling but no edema present secondary to the inflammation. There is a streaking of redness up his medial left thigh and there is pain to palpation of his left lower extremity. Erythema anteriorly does not move proximal to the knee. He is tachycardic and febrile but otherwise in no acute distress and has no increased respiratory effort. Heart rate is tacky with no evidence of murmur and S1/S2 is heard. He appears euvolemic on exam. He is neurologically intact. Lungs are clear to auscultation and abdomen is soft nontender nondistended. He is overweight. Work-up in the ER revealed a normal CBC with no leukocytosis. No evidence of coagulopathy is present. BNP is normal aside from a sodium of 135 and a glucose of 214. Renal function is within normal limits. Liver panel is normal. He is elevated inflammatory markers and a procalcitonin is negative. Nasal MRSA screen is negative. Venous Doppler of the left lower extremity reveals no evidence of blood clot. Blood cultures were drawn and pending. There is a left bundle branch block now present on his EKG that is new when compared to October 2008. PEr outpatient records review, he is known to have an intermittent left bundle-branch block with a nonischemic nuclear stress test in Apr 2021. In general this is an individual presenting with sepsis secondary to left lower extremity cellulitis refractory to recent treatment with oral antibiotics as outpatient. We will continue resuscitation with ongoing tachycardia and continue with broad-spectrum antibiotics. He does not have risk factors for MRSA so we will not continue with vancomycin. Supportive care for fever with Tylenol or other antipyretics as needed. DO Ovi
--- NOTE | 2022-05-07 15:23 | Electrocardiogram Report ---
Test Reason : Blood Pressure : / mmHG Vent. Rate : 106 BPM Atrial Rate : 106 BPM P-R Int : 180 ms QRS Dur : 148 ms QT Int : 358 ms P-R-T Axes : 067 059 -53 degrees QTc Int : 475 ms Sinus tachycardia Left bundle branch block Abnormal ECG When compared with ECG of 19-NOV-2018 09:31, Left bundle branch block is now Present Confirmed by Ke Espinoza ([id number]) on 05/07/2022 3:23:16 PM Referred By: Claus Sullivan Confirmed By:Ke Espinoza
[2022-05-07] MEDS ORDERED: LACTATED RINGER'S 1,000 ML IV ONE (17:13)
[2022-05-07] MEDS ORDERED: GLUCOSE 40% GEL 15 GM TUBE PO PRN (18:12)
[2022-05-07] MEDS ORDERED: ACETAMINOPHEN 325 MG TAB PO PRN ×2 (18:12→20:44)
[2022-05-07] MEDS ORDERED: DEXTROSE 50% 50 ML SYRINGE IV PRN (18:12)
[2022-05-07] MEDS ORDERED: GLUCAGON FOR INJ 1 MG VIAL SQ PRN (18:12)
[2022-05-07] MEDS ORDERED: CARBOHYDRATES FOR HYPOGLYCEMIA PO PRN (18:12)
[2022-05-07] MEDS ORDERED: GLUCOSE 10 TAB/TUBE PO PRN (18:12)
[2022-05-07] MEDS ORDERED: ONDANSETRON INJ 2 MG/ML 2 ML VIAL IV PRN (18:12)
[2022-05-07] MEDS ORDERED: HYDROCODONE/ACETAMOPHEN 5/325MG TAB PO PRN (18:12)
--- NOTE | 2022-05-07 19:27 | Pharmacy Report ---
Pharmacy PK ABX Note - Date of Service May 07, 2022 - Assessment and Plan Assessment 56 year old M who presents with worsening left lower extremity cellulitis. Recently seen in the ED and discharged on doxy + cephalexin. Patient was evaluated by his PCP today and instructed to report to the ED for further treatment. Plan Vancomycin * Loading dose: 2000 mg IV x 1 * Maintenance dose: 1500 mg IV every 12 hours * Regimen is predicted to achieve target AUC/GARLAND of 400-600 mg/L.hr * Random level ordered for: 05/09/22 with AM labs Pharmacy will continue to follow and will adjust dose/frequency as necessary. Thank you. Pharmacy has transitioned to AUC monitoring for vancomycin. AUC/GARLAND is the preferred PK/PD target and is associated with decreased risk of nephrotoxicity compared to traditional trough targets.
[2022-05-07] MEDS: INSULIN ASPART PER UNIT SC SCH (19:33)
[2022-05-07] MEDS: buPROPion SR 150 MG TABCR PO SCH (19:38)
[2022-05-07] MEDS: SODIUM CHLORIDE 0.9% 1000ML 1,000 ML IV SCH (22:59)
[2022-05-07] MEDS: VANCOMYCIN HCL 1,500 MG in SODIUM CHLORIDE 0.9% 500 ML IV SCH (22:59)
[2022-05-08 09:40] LABS: Hematocrit (blood only) 33.8 % (40.1-51.0); Hemoglobin 11.9 g/dl (14.0-18.0); Mean Corpuscular Hemoglobin 32.9 pg (25.0-34.0); Mean Corpuscular Hgb Conc 35.2 g/dL (32.0-36.0); Mean Corpuscular Volume 93.4 fL (80.0-100.0); Mean Platelet Volume 10.7 fL (9.4-12.4); Platelet Count 227 K/uL (130-400); RDW Coefficient of Variation 12.4 % (11.5-14.5); RDW Standard Deviation 42.7 fL (36.4-46.3); Red Blood Count 3.62 M/uL (4.63-6.08); White Blood Count 7.86 K/ul (4.8-10.8)
[2022-05-08] MEDS: INSULIN ASPART PER UNIT SC SCH ×4 (10:04→20:33)
[2022-05-08 10:05] LABS: BUN Creatinine Ratio 13.2 (10-20); Calcium 8.9 mg/dl (8.5-10.1); Chol HDL Ratio 3.3 (0-5); Creatinine Clr Calc Pharmacy 147.4 ml/min; Est GFR (Non-African American) 105.3 ml/min; Potassium 3.5 mmol/L (3.5-5.1)
[2022-05-08] MEDS: VANCOMYCIN HCL 1,500 MG in SODIUM CHLORIDE 0.9% 500 ML IV SCH (10:08)
[2022-05-08 10:15] LABS: Estimated Average Glucose 131 mg/dl; Hemoglobin A1C 6.2 % (4.5-5.6)
[2022-05-08] MEDS: ALFUZOSIN HCL 10 MG TAB PO SCH (10:40)
[2022-05-08] MEDS: ATORVASTATIN 40 MG TAB PO SCH (10:40)
[2022-05-08] MEDS: ASPIRIN 81 MG ECTAB PO SCH (10:40)
[2022-05-08] MEDS: FINASTERIDE 5 MG TAB PO SCH (10:40)
[2022-05-08] MEDS: lisinopril 5 MG TAB PO SCH (10:40)
[2022-05-08] MEDS: METOPROLOL SUCC 25MG EXT REL TAB PO SCH (10:40)
[2022-05-08] MEDS: buPROPion SR 150 MG TABCR PO SCH ×2 (11:10→20:32)
[2022-05-08] MEDS: cefTRIAXone SODIUM 2,000 MG in DEXTROSE 5% 50 ML IV SCH (13:33)
--- NOTE | 2022-05-08 14:40 | Hospitalist Progress Note ---
Date of Service May 08, 2022 Assessment & Plan (1) Cellulitis of left lower extremity: Plan: - Failed outpt therapy with keflex and doxycycline - ceftriaxone and vanc IV in started in the ER 05/07--->sky/renata vázquez DC Vanc 05/08 (MRSA screen negative, no purulence of cellulitis noted). - Inflammatory markers with ESR and CRP elevated on admission - At admission didn't meet sepsis criteria - Follow admitting blood cultures x 2 - Outlined with skin marker at bedside to ensure does not cross the boarder with antibiotic therapy, monitor - Hx of DVT in the left leg 15 years ago, cause unknown (pt cant remember), repeat US of the left leg on 05/04 and 05/07 was negative for acute DVT. (2) Diabetes mellitus, type 2: Plan: - Uses insulin sliding scale - A1c This admission 6.2 - Does not use lantus anymore with weight loss of 55 lbs in the past year (3) Hypertension: Plan: - Cont lisinopril and amlodipine (4) Hyperlipidemia: Plan: - Cont statin therapy - lipid panel reviewed. (5) Obesity: Plan: - Improving with diet and exercise - BMI of 32.6 currently (6) Depression: Plan: - Continue wellbutrin DVT ppx: Hep SC. CODE: Full code Dispo: From home, likely to go home in 1-2 days (7) GERD (gastroesophageal reflux disease): Admission and Anticipated Discharge Date Admission Date: May 07, 2022 Subjective Patient seen and examined at bedside as a follow-up of LLE cellulitis. Patient was lying in bed, on room air, NAD, reports no new acute events overnight, reports eating okay and moving bowels okay, reports LLE pain and redness getting better, denies fever/headache/chills/chest pain/sore throat/palpitations/other review of symptoms. Physical Exam Physical Exam: GENERAL: Alert and oriented x3. NAD, on RA. Class I obese. HEENT: No pallor, no icterus. Pupils equal, round and reactive to light. Oral mucosa moist. NECK: No JVD, no neck masses. HEART: S1 and S2 heard. Regular rate and rhythm. No murmur, no gallop. RESPIRATORY SYSTEM: Normal AP diameter. No accessory muscle use. No wheezing, no crackles. ABDOMEN: Soft, bowel sounds present, nontender, no distention. CENTRAL NERVOUS SYSTEM: No facial droop. Speech is clear. Obeys simple commands. Moves extremities. EXTREMITIES: RLE no edema, LLE erythema/swelling/warmth/tenderness improving. Results & Data Results & Data ([facility]) Vital Signs (Past 12 Hours) Vital Signs Temp Pulse Resp BP Pulse Ox O2 Del Method 05/08/22 07:20 Room Air 05/08/22 07:08 37.1 C 95 H 16 107/67 94 Room Air
[2022-05-08] MEDS: SODIUM CHLORIDE 0.9% 1000ML 1,000 ML IV SCH (15:20)
[2022-05-08] MEDS: HEPARIN SOD 5,000 UNIT/0.5 ML VIAL SQ SCH (20:32)
[2022-05-09] MEDS ORDERED: VANCOMYCIN LEVEL ONE (07:00)
[2022-05-09 07:09] LABS: Hematocrit (blood only) 31.8 % (40.1-51.0); Hemoglobin 11.1 g/dl (14.0-18.0); Mean Corpuscular Hemoglobin 32.2 pg (25.0-34.0); Mean Corpuscular Hgb Conc 34.9 g/dL (32.0-36.0); Mean Corpuscular Volume 92.2 fL (80.0-100.0); Mean Platelet Volume 10.4 fL (9.4-12.4); Platelet Count 235 K/uL (130-400); RDW Coefficient of Variation 12.1 % (11.5-14.5); Red Blood Count 3.45 M/uL (4.63-6.08); White Blood Count 6.68 K/ul (4.8-10.8)
[2022-05-09 07:34] LABS: BUN Creatinine Ratio 14.5 (10-20); Calcium 8.4 mg/dl (8.5-10.1); Creatinine Clr Calc Pharmacy 145.3 ml/min; Est GFR (African American) 121.3 ml/min; Est GFR (Non-African American) 104.6 ml/min; Potassium 3.5 mmol/L (3.5-5.1)
[2022-05-09] MEDS: ASPIRIN 81 MG ECTAB PO SCH (07:42)
[2022-05-09] MEDS: buPROPion SR 150 MG TABCR PO SCH ×2 (07:42→19:52)
[2022-05-09] MEDS: lisinopril 5 MG TAB PO SCH (07:42)
[2022-05-09] MEDS: METOPROLOL SUCC 25MG EXT REL TAB PO SCH (07:42)
[2022-05-09] MEDS: ATORVASTATIN 40 MG TAB PO SCH (07:42)
[2022-05-09] MEDS: ALFUZOSIN HCL 10 MG TAB PO SCH (07:43)
[2022-05-09] MEDS: FINASTERIDE 5 MG TAB PO SCH (07:43)
[2022-05-09] MEDS: HEPARIN SOD 5,000 UNIT/0.5 ML VIAL SQ SCH ×2 (08:08→19:52)
[2022-05-09] MEDS: INSULIN ASPART PER UNIT SC SCH ×4 (09:12→20:27)
[2022-05-09] MEDS: cefTRIAXone SODIUM 2,000 MG in DEXTROSE 5% 50 ML IV SCH (13:00)
[2022-05-09] MEDS ORDERED: POTASSIUM CHLORIDE CRTAB 20 MEQ TABCR PO STA (16:27)
--- NOTE | 2022-05-09 16:27 | Hospitalist Progress Note ---
Date of Service May 09, 2022 Assessment & Plan (1) Cellulitis of left lower extremity: Plan: - Failed outpt therapy with keflex and doxycycline - ceftriaxone and vanc IV in started in the ER 05/07--->c/w TEODORA vázquez'd Vanc 05/08 (MRSA screen negative, no purulence of cellulitis noted). - Inflammatory markers with ESR and CRP elevated on admission - At admission didn't meet sepsis criteria - Follow admitting blood cultures x 2 --> NG 48 hours - Outlined with skin marker at bedside to ensure does not cross the boarder with antibiotic therapy, monitor - Hx of DVT in the left leg 15 years ago, cause unknown (pt cant remember), rep eat US of the left leg on 05/04 and 05/07 was negative for acute DVT. (2) Diabetes mellitus, type 2: Plan: - Uses insulin sliding scale - A1c This admission 6.2 - Does not use lantus anymore with weight loss of 55 lbs in the past year (3) Hypertension: Plan: - Cont lisinopril and amlodipine (4) Hyperlipidemia: Plan: - Cont statin therapy - lipid panel reviewed. (5) Obesity: Plan: - Improving with diet and exercise - BMI of 32.6 currently (6) Depression: Plan: - Continue wellbutrin DVT ppx: Hep SC. CODE: Full code Dispo: From home, PT/OT, CM to assist w/ DC plan, likely to go home in next 1-2 days w/ oral antibiotics. (7) GERD (gastroesophageal reflux disease): Admission and Anticipated Discharge Date Admission Date: May 07, 2022 Subjective Patient seen and examined at bedside as a follow-up of LLE cellulitis. Patient was lying in bed, on room air, NAD, reports no new acute events overnight, reports eating okay and moving bowels okay, reports LLE pain and redness getting better, denies fever/headache/chills/chest pain/sore throat/palpitations/other review of symptoms. Physical Exam Physical Exam: GENERAL: Alert and oriented x3. NAD, on RA. Class I obese. HEENT: No pallor, no icterus. Pupils equal, round and reactive to light. Oral mucosa moist. NECK: No JVD, no neck masses. HEART: S1 and S2 heard. Regular rate and rhythm. No murmur, no gallop. RESPIRATORY SYSTEM: Normal AP diameter. No accessory muscle use. No wheezing, no crackles. ABDOMEN: Soft, bowel sounds present, nontender, no distention. CENTRAL NERVOUS SYSTEM: No facial droop. Speech is clear. Obeys simple commands. Moves extremities. EXTREMITIES: RLE no edema, LLE erythema/swelling/warmth about the same as yesterday/improved from presentation; but tenderness progressively improving. Results & Data Results & Data ([facility]) Vital Signs (Past 12 Hours) Vital Signs Temp Pulse Resp BP Pulse Ox O2 Del Method 05/09/22 15:02 36.4 C L 84 16 143/84 H 97 Room Air 05/09/22 08:00 Room Air 05/09/22 07:22 37.2 C 83 16 151/88 H 93 Room Air
[2022-05-10] MEDS: lisinopril 5 MG TAB PO SCH (07:29)
[2022-05-10] MEDS: buPROPion SR 150 MG TABCR PO SCH (07:29)
[2022-05-10] MEDS: METOPROLOL SUCC 25MG EXT REL TAB PO SCH (07:29)
[2022-05-10] MEDS: ATORVASTATIN 40 MG TAB PO SCH (07:29)
[2022-05-10] MEDS: FINASTERIDE 5 MG TAB PO SCH (07:29)
[2022-05-10] MEDS: ALFUZOSIN HCL 10 MG TAB PO SCH (07:29)
[2022-05-10] MEDS: ASPIRIN 81 MG ECTAB PO SCH (07:30)
[2022-05-10] MEDS: HEPARIN SOD 5,000 UNIT/0.5 ML VIAL SQ SCH (07:30)
[2022-05-10 07:47] LABS: Hematocrit (blood only) 33.1 % (40.1-51.0); Hemoglobin 11.5 g/dl (14.0-18.0); Mean Corpuscular Hgb Conc 34.7 g/dL (32.0-36.0); Mean Corpuscular Volume 92.2 fL (80.0-100.0); Mean Platelet Volume 10.5 fL (9.4-12.4); Platelet Count 287 K/uL (130-400); RDW Coefficient of Variation 11.8 % (11.5-14.5); RDW Standard Deviation 40.2 fL (36.4-46.3); Red Blood Count 3.59 M/uL (4.63-6.08); White Blood Count 6.64 K/ul (4.8-10.8)
[2022-05-10 08:35] LABS: BUN Creatinine Ratio 16.4 (10-20); Calcium 8.5 mg/dl (8.5-10.1); Creatinine Clr Calc Pharmacy 149.6 ml/min; Est GFR (African American) 122.8 ml/min; Est GFR (Non-African American) 105.9 ml/min
[2022-05-10] MEDS: INSULIN ASPART PER UNIT SC SCH ×2 (08:59→12:59)
[2022-05-10] MEDS ORDERED: FUROSEMIDE 20 MG TAB PO SCH (12:15)
[2022-05-10] MEDS: cefTRIAXone SODIUM 2,000 MG in DEXTROSE 5% 50 ML IV SCH (12:16)
--- NOTE | 2022-05-10 12:37 | Discharge Summary ---
Date of Service May 10, 2022 Admission HPI Per Admitting Provider This is a 56-year-old male with PMHx of DM type II HLD, SVT, gastroparesis, obesity with a BMI of 32.6, BPH, MDD who presented to the ER on 05/04 for left lower extremity cellulitis. He was started on Keflex and doxycycline and a venous duplex of the lower extremity was done and was negative. Importantly at that time his erythema was just above the ankle to the medial calf at time of that visit. Now he reports fever, increased left lower leg pain, redness which wraps around the whole calf muscle and was seen by PCP earlier this morning who referred him back to the ER for worsening symptoms despite antibiotic therapy. Pt reports that he had been taking double doses of his antibiotics because it wasn't really working since Wednesday. He notes he initially started having fevers, chills, sweats last Wednesday and that throughout the past few days he has had several fevers but did not take his temperature. Appetite has been down since last Wednesday. Pt reports intentionally losing weight of 55 lbs in the past year with participating in a diet/exercise plan. His pain is currently rated at 8/10 despite having a dose of Morphine 4 mg IV. He was unable to walk into the ER on this foot due to pain. Pt works for [employer] with [employer] and is on his feet quite a bit and it has been difficult the past couple of days. Pt also notes having a blood clot about 15 years ago in the left leg but cannot recall what it was caused from. He denies any known family hx or personal hx of clotting disorders. Pt does not smoke for the past 20 years, and does not drink alcohol. No other acute complaints. Elevated CRP of 16 and ESR of 71 today. Failed outpatient antibiotic treatment of left lower leg cellulitis. Admission Exam Per Admitting Provider General: awake, alert, no apparent distress, obese, BMI of 32.6 Head: Normocephalic, atraumatic ENT: PERRL, EOMI, no pharyngeal exudate, mucous membranes moist Chest: Clear to auscultation, on room air, no adventitious breath sounds Cardiac: Regular rate and rhythm, + systolic ejection murmur grade II/, no JVD, normal peripheral pulses, good capillary refill Abdominal: NABS x 4 quadrants, soft, nondistended, nontender to palpation, no rebound or guarding Extremities: LLE with erythema, warmth, pain with touch. Otherwise normal inspection, no peripheral edema or erythema, calfs nontender to palpation Psych: Normal mood and affect Skin: LLE erythema, warmth, surrounding the entire calf muscle, streaking redness going up the inner thigh, does not involve the foot. Cracked skin on foot. Neuro: AAO x 3, strength intact bilaterally and rated 5/5, no motor deficits, speech is clear, no peripheral sensory deficits Principal Diagnosis Cellulitis of left lower extremity Discharge Exam GENERAL: Alert and oriented x3. NAD, on RA. Class I obese. HEENT: No pallor, no icterus. Pupils equal, round and reactive to light. Oral mucosa moist. NECK: No JVD, no neck masses. HEART: S1 and S2 heard. Regular rate and rhythm. No murmur, no gallop. RESPIRATORY SYSTEM: Normal AP diameter. No accessory muscle use. No wheezing, no crackles. ABDOMEN: Soft, bowel sounds present, nontender, no distention. CENTRAL NERVOUS SYSTEM: No facial droop. Speech is clear. Obeys simple commands. Moves extremities. EXTREMITIES: RLE no edema, LLE erythema/swelling/tenderness/warmth improving very well. Discharge Data Allergies Allergy/AdvReac Type Severity Reaction Status Date / Time empagliflozin AdvReac Severe EXTREME Verified 05/07/22 15:03 [From Jardiance] DROWSINESS/EXCESSIVE URINATION/DEHYDRATION Consultations 05/07/22 14:15 ED Decision to Admit Stat Ordered Studies 05/07/22 11:54 US venous doppler LE Stat Hospital Course (1) Cellulitis of left lower extremity: - Failed outpt therapy with keflex and doxycycline - ceftriaxone and vanc IV in started in the ER 05/07 - Inflammatory markers with ESR and CRP elevated on admission - At admission didn't meet sepsis criteria - Follow admitting blood cultures x 2 --> NG 48 hours - Outlined with skin marker at bedside to ensure does not cross the boarder with antibiotic therapy, monitor - LLE swelling/erythema/tenderness/warmth improving nicely, patient afebrile, will dc on cefuroxime and doxy , probiotics added. Lasix for 3 days to help reduce swelling. - Hx of DVT in the left leg 15 years ago, cause unknown (pt cant remember), repeat US of the left leg on 05/04 and 05/07 was negative for acute DVT. (2) Diabetes mellitus, type 2: - Uses insulin sliding scale - A1c This admission 6.2 - Does not use lantus anymore with weight loss of 55 lbs in the past year (3) Hypertension: - Cont lisinopril and amlodipine (4) Hyperlipidemia: - Cont statin therapy - lipid panel reviewed. (5) Obesity: - Improving with diet and exercise - BMI of 32.6 currently (6) Depression: - Continue wellbutrin DVT ppx: Hep SC. CODE: Full code Pt being discharged to home w/ following instruction at the point of discharge: Follow up with your primary care physician within a week time and likely you will need blood test CBC/CMP. For your left lower leg cellulitis, you will be discharged on oral antibiotics and 2 days worth of water pill to decrease the swelling. Keep your left lower leg elevated with 2 pillows beneath it while lying in bed. Ambulate as tolerated. Take antibiotics as prescribed to complete the course. You will receive your iv antibiotic today before leaving, start your oral antibiotics from tomorrow morning to complete the course. For your leg pain, leg elevation can help to reduce edema and pain. You can use OTC tylenol 3-4 times a day as needed for mild pain and OTC naproxen 2-3 times with meals as needed for moderate pain. Take your medications as prescribed. (7) GERD (gastroesophageal reflux disease): Home Health Attestation I certify that this patient is under my care and that I, or a physicians engineer first assistant working with me, had a face to-face encounter that meets the home health [id number] encounter requirements with this patient. The encounter with the patient was in whole, or in part, for the following medical condition, which is the primary reason for home health care (list medical condition): I certify that, based on my findings, the following services are medically necessary home health services: My clinical findings support the need for the above services because: Further, I certify that my clinical findings support that this patient is homebound (i.e. absences from home require considerable and taxing effort and are for medical reasons or [employer] or infrequently or of short duration when for other reasons) because: Certification for Home Health Services: Based on the above findings, I certify that this patient is confined to the home and needs intermittent senior care care, physical therapy and/or speech therapy or continues to need occupational therapy. The patient is under my care, and I have initiated the establishment of the plan of care. This patient will be followed by a physician who will periodically review the plan of care. Total Time Total Time Spent Total Time Spent (In Minutes): 40 Discharge Plan Discharge Items Patient Disposition: Home - Self-Care Reason For Visit: CELLULITIS Discharge Diagnosis: Cellulitis of left lower extremity Activity: Per Instructions section Activity Comment: ambulate as tolerated, keep left leg elevated while lying on bed. Non-emergency contact: Primary Care Provider Call non-emergency contact if: you have any medication questions Follow-up/Referrals: Claus Sullivan MD [Primary Care Provider] - Diet: Carb Consistent or DM2 and Heart Healthy Addtl Attending Provider Instructions: Follow up with your primary care physician within a week time and likely you will need blood test CBC/CMP. For your left lower leg cellulitis, you will be discharged on oral antibiotics and 2 days worth of water pill to decrease the swelling. Keep your left lower leg elevated with 2 pillows beneath it while lying in bed. Ambulate as tolerated. Take antibiotics as prescribed to complete the course. You will receive your iv antibiotic today before leaving, start your oral antibiotics from tomorrow morning to complete the course. For your leg pain, leg elevation can help to reduce edema and pain. You can use OTC tylenol 3-4 times a day as needed for mild pain and OTC naproxen 2-3 times with meals as needed for moderate pain. Take your medications as prescribed. Pending Studies at Discharge: Yes (admitting blood culture final results. ) Stand-Alone Forms: [facility], Smoking Cessation Medications and DC Order Prescriptions: New cefuroxime axetil 500 mg tablet 500 mg PO BID 8 Days Qty: 16 0RF doxycycline hyclate 100 mg capsule 100 mg PO BID 8 Days Qty: 16 0RF Probiotic 3 billion cell capsule 3,000 mmu cells PO DAILY 10 Days Qty: 10 0RF Rx Instructions: administer with a meal furosemide 20 mg Tablet 20 mg PO QAM 2 Days Qty: 2 0RF Continued atorvastatin 40 mg Tablet 40 mg PO DAILY bupropion HCl 150 mg Tablet Sustained-Release 12 Hr 150 mg PO BID lisinopril 5 mg Tablet 5 mg PO DAILY metoprolol succinate 25 mg Tablet Extended Release 24 Hr 25 mg PO QAM finasteride 5 mg Tablet 5 mg PO DAILY aspirin 81 mg Tablet,Delayed Release (Dr/Ec) 81 mg PO DAILY Trulicity 4.5 mg/0.5 mL Pen Injector 4.5 mg SUBCUT WK Rx Instructions: TAKES ON TUESDAYS alfuzosin 10 mg tablet extended release 24 hr 10 mg PO QAM acetaminophen [Tylenol Extra Strength] 500 mg Tablet 500 mg PO DIRECTED PRN (Reason: Pain) Discontinued doxycycline hyclate 100 mg tablet 100 mg PO BID 10 Days Qty: 20 0RF Rx Instructions: STARTED 05/04/22 FOR 10 DAYS. May use tablet or capsule, or monohydrate. cephalexin 500 mg capsule 500 mg PO Q6H 10 Days Qty: 40 0RF Rx Instructions: STARTED 05/04/22 FOR 10 DAYS. Discharge Orders: Discharge Order (Routine); Ordered 05/10/22 Ordered By: Natalie Lisa Admission Data Admit Date/Time: 05/07/22 14:34 Attending Provider: Natalie Lisa Admit Provider: Mary Dior Primary Care Provider: Claus Sullivan Other Providers: Mary Dior
== END 2022-05-10 16:52 | disposition home or self-care (01) | DRG 603 ==
LOC: ED 11:42 → EDINP 14:34 → SUATTDRO 14:34 → EDINP 21:01 → 3N 21:07
DX: Z68.32 Body mass index [BMI] 32.0-32.9, adult; Z79.82 Long term (current) use of aspirin; E66.9 Obesity, unspecified; I10 Essential (primary) hypertension; B35.1 Tinea unguium; E11.9 Type 2 diabetes mellitus without complications; K21.9 Gastro-esophageal reflux disease without esophagitis; Z87.891 Personal history of nicotine dependence; Z86.718 Personal history of other venous thrombosis and embolism; E78.5 Hyperlipidemia, unspecified; L03.116 Cellulitis of left lower limb; Z79.899 Other long term (current) drug therapy; Z79.84 Long term (current) use of oral hypoglycemic drugs; Z88.8 Allergy status to other drugs, medicaments and biological substances; F32.9 Major depressive disorder, single episode, unspecified

== ENCOUNTER 2023-06-28 15:12 | Inpatient (IN) ==
--- NOTE | 2023-06-28 15:24 | ED Triage Note ---
Date of Service June 28, 2023 Provider in Triage Author: Gen Baldwin History of Present Illness This patient was briefly evaluated while in triage. An abbreviated physical exam was performed. This patient is a 58-year-old Male who presents to the ED for evaluation of cough, weakness and not feeling well. The patient reports that he has been coughing for the past hour and a half. The patient also reports dizziness. The patient felt fine this morning upon awakening. Patient did not notice any significant increase in his heart rate. Physical Exam CONSTITUTIONAL: Healthy and well nourished. Patient appears in mild d iscomfort. HEENT: No scleral icterus or rhinorrhea. RESPIRATORY: Auscultation shows crackles throughout all puente. CARDIOVASCULAR: Regular rate and rhythm with no murmurs, rubs or gallops. INTEGUMENTARY: No rash or other significant dermatologic conditions noted. HEMATOLOGIC: No ecchymosis or petechiae. PSYCHIATRIC: Positive affect. NEUROLOGIC: No focal neurologic deficits noted. Initial orders for labs and / or imaging were placed and patient was placed in the waiting area until a bed is available. Please see further documentation for the full ED course.
[2023-06-28 16:06] LABS: Basophils # (auto) 0.02 K/uL (0.00-0.20); Basophils % (auto) 0.4 %; Hematocrit (blood only) 40.5 % (42.0-52.0); Hemoglobin 14.4 g/dl (14.0-18.0); Immature Granulocytes # (auto) 0.01 K/uL (0.01-0.20); Immature Granulocytes % (auto) 0.2 %; Lymphocytes # (auto) 0.78 K/uL (1.20-3.40); Lymphocytes % (auto) 16.1 %; Mean Corpuscular Hemoglobin 33.1 pg (25.0-34.0); Mean Corpuscular Hgb Conc 35.6 g/dL (32.0-36.0); Mean Corpuscular Volume 93.1 fL (80.0-100.0); Mean Platelet Volume 11.3 fL (9.4-12.4); Monocytes # (auto) 0.29 K/uL (0.11-0.59); Neutrophils # (auto) 3.73 K/uL (1.40-6.50); Neutrophils % (auto) 77.3 %; Platelet Count 209 K/uL (130-400); RDW Coefficient of Variation 12.9 % (11.5-14.5); RDW Standard Deviation 44.1 fL (36.4-46.3); Red Blood Count 4.35 M/uL (4.70-6.10); White Blood Count 4.83 K/ul (4.8-10.8)
[2023-06-28 16:22] LABS: Albumin Level 4.4 gm/dl (3.4-5.0); Bilirubin,Total 0.6 mg/dl (0.2-1.0); Calcium 9.1 mg/dl (8.6-10.3); Creatinine Clr Calc Pharmacy 100.2 ml/min; Est GFR (African American) 94.4 ml/min; Est GFR (Non-African American) 81.4 ml/min; Globulin 2.2 gm/dl (2.5-4.0); Magnesium 1.8 mg/dl (1.7-2.4); Potassium 4.1 mmol/L (3.5-5.1); Total Protein 6.6 gm/dl (6.0-8.3)
[2023-06-28 16:28] LABS: Troponin I High Sensitivity 6.4 pg/ml (0-20)
--- NOTE | 2023-06-28 16:30 | Emergency Department Note ---
Impression & Plan Hypoxia, Pneumonia ED Provider Note NAME: MASSIEL CUELLAR AGE: 58 SEX: M : 1965 ARRIVES VIA: Walk-In INFORMANT: Patient ED PROVIDER(S): Nestor Weinstein DO CHIEF COMPLAINT: Shortness of breath HPI: Patient is a 58-year-old male with a past medical history of SVT, DVT, GERD, thoracic aortic aneurysm who presents to the ER for shortness of breath. This started earlier prior to arrival. He called EMS and was found to be hypoxic at 80%. Was placed on 2 L nasal cannula. Does have a history of COPD. Denies any chest pain but admits to shortness of breath. Denies any belly pain, nausea, vomiting, or diarrhea. No dysuria, urgency, or frequency. No other exacerbating or remitting factors. ADDITIONAL HISTORY OBTAINED: Per HPI Chronic Medical/Social Conditions Affecting Care: Per HPI PAST MEDICAL HISTORY:See Below PAST SURGICAL HISTORY:See Below FAMILY HISTORY:See Below SOCIAL HISTORY:See Below HOME MEDICATIONS:See Below ALLERGIES:See Below VITALS:See Below PHYSICAL EXAMINATION: GENERAL: Sitting up in bed, alert, well appearing, well nourished, no distress, non-toxic EYE EXAM: normal conjunctiva. OROPHARYNX: no exudate, no erythema, lips, buccal mucosa, and tongue normal and mucous membranes are moist NECK: supple, no nuchal rigidity, no adenopathy, non-tender LUNGS: Clear to auscultation. Normal chest wall mechanics HEART: no murmurs, S1 normal and S2 normal ABDOMEN: abdomen soft, non-tender, normo-active bowel sounds, no masses, no rebound or guarding. UPPER EXTREMITIES: upper extremities are grossly normal. LOWER EXTREMITIES: Pitting edema the bilateral lower extremity. Calves are equal bilateral NEURO EXAM: Normal sensorium, cranial nerves II-XII grossly intact, normal speech, no gross weakness of arms, no gross weakness of legs. MEDICAL DECISION MAKING: Patient is a 58-year-old male who presents ER for shortness of breath. IV was established blood work was obtained. He said to be hypoxic in the low 80s and was placed on nasal cannula. Labs show no significant leukocytosis or anemia. INR unremarkable. BMP along with LFTs was unremarkable. proBNP slightly elevated at nearly 400. Troponin was negative. UA was clean. Viral panel was negative. Chest x-ray suggest a subtle pneumonia. Patient was covered with IV Rocephin and Zithromax. Patient was updated bedside discussed with the hospitalist minute for further workup. He was feeling much better upon my evaluation following a protracted wait. Consults/Care Managements Discussions: Per MDM Triage Nursing notes reviewed. Limited review of prior medical records performed Vital Signs: reviewed and remarkable for hypoxia Differential diagnosis: Differential diagnoses includes but is not limited to pneumonia, bronchitis, COPD/Asthma exacerbation, pneumothorax, pulmonary embolism, congestive heart failure, acute coronary syndrome ER treatment provided: See below Diagnostics interpreted by me include EKG and cardiac monitoring as listed below: -Cardiac Monitoring: An order was placed for continuous cardiac monitoring. The monitor shows a rate of 90 with sinus rhythm. -ECG: A-fib rate 94 Normal axis Left bundle branch block QTc 477 -Laboratory studies:Interpreted by me as stated above in MDM and shown below. Imaging studies: Xrays: As interpreted by me: Portable AP upright 1 view of the chest shows right lower lobe infiltrate CTs show: none Procedures:none Critical Care: I have personally spent 33 minutes of critical care time in the direct management of this patient. This includes bedside care, interpretation of diagnostic studies, and testing, discussion with consultants, patient, and family members, and other required patient management activities. This 33 minutes is in excess of all separately billable procedures. Past Med/Surg History Medical History (Updated 06/28/23 @ 21:03 by Nestor Weinstein DO) Aortic valve regurgitation Thoracic aortic aneurysm 4.7cm on echo, 2018 Gastroparesis Obesity GERD (gastroesophageal reflux disease) Diabetes mellitus, type 2 IDDM Depression DVT (deep venous thrombosis) 15 YEARS AGO Sleep apnea NO DEVICE Hypertension Hyperlipidemia Surgical History History of eye surgery MUSCULAR SURGERY X2 History of herniorrhaphy CHILDHOOD Family History Other Cancer Diabetes Social History Smoking Status: Former smoker Second Hand Exposure: No; Do You Dip or Chew Tobacco: No; Hx Alcohol Use: No Hx Substance Use: No Preferred Language: Beninese Communication Ability: Effective Hotel Services Supervisor Required: No Beliefs That Will Affect Care: Spiritual Current Living Situation: Alone Feels Safe at Home: Yes Assistive Devices: None Allergies Allergies Allergy/AdvReac Type Severity Reaction Status Date / Time empagliflozin AdvReac Severe EXTREME Verified 06/28/23 18:28 [From Jardiance] DROWSINESS/EXCESSIVE URINATION/DEHYDRATION Home Meds Home Medications Medication Instructions Recorded Confirmed atorvastatin 40 mg tablet 40 mg PO QAM 04/08/18 06/28/23 bupropion HCl 150 mg tablet,12 hr 150 mg PO AMHS 04/08/18 06/28/23 sustained-release lisinopril 5 mg tablet 5 mg PO QAM 04/08/18 06/28/23 metoprolol succinate 25 mg 25 mg PO QAM 04/08/18 06/28/23 tablet,extended release 24 hr acetaminophen 500 mg tablet 500 mg PO DAILY PRN Pain 05/07/22 06/28/23 (Tylenol Extra Strength) alfuzosin 10 mg tablet,extended 10 mg PO QAM 05/07/22 06/28/23 release 24 hr aspirin 81 mg tablet,delayed 81 mg PO QAM 05/07/22 06/28/23 release dulaglutide 3 mg/0.5 mL 3 mg subcut WK 06/28/23 06/28/23 subcutaneous pen injector (Trulicity) insulin glargine 100 unit/mL (3 10 unit subcut DAILY PRN pt decides 06/28/23 06/28/23 mL) subcutaneous pen (Lantus Solostar U-100 Insulin) omeprazole 20 mg capsule,delayed 20 mg PO QAM 06/28/23 06/28/23 release Results & Data (ED) Vital Signs Vital Signs - 24 hr 06/28/23 15:20 06/28/23 15:27 06/28/23 16:34 Temperature 36.8 C Temperature Source Temporal Artery Scan Pulse Rate 99 H Pulse Rate [Apical] 85 Pulse Rhythm [Apical] Pulse Strength [Apical] Respiratory Rate 18 18 Respiratory Effort / Characteristics Non-Labored Spontaneous Non-Labored Respiratory Depth Normal Normal Respiratory Pattern Regular Regular Blood Pressure 175/91 H Blood Pressure [Left Arm] 180/94 H Blood Pressure Mean 119 Blood Pressure Mean [Left Arm] 122 Blood Pressure Position Sitting Blood Pressure Position [Left Arm] Pulse Oximetry 85 L 85 L 95 Oxygen Delivery Method Room Air Nasal Cannula Room Air Oxygen Flow Rate 0 Sepsis Recent Fever Within 48 Hours No Sepsis New/Unexplained Change in Mental Status N/A Sepsis Action Taken by Nursing No Action Required Oxygen Flow Rate - Titration 3 Pulse Oximetry Post Tiitration 93 06/28/23 18:19 06/28/23 19:39 06/28/23 20:00 Temperature Temperature Source Pulse Rate 90 Pulse Rate [Apical] 76 74 Pulse Rhythm [Apical] Regular Pulse Strength [Apical] Normal Respiratory Rate 18 16 Respiratory Effort / Characteristics Non-Labored Non-Labored Spontaneous Respiratory Depth Normal Normal Respiratory Pattern Regular Blood Pressure Blood Pressure [Left Arm] 165/84 H 156/85 H Blood Pressure Mean Blood Pressure Mean [Left Arm] 111 108 Blood Pressure Position Blood Pressure Position [Left Arm] Lying Pulse Oximetry 96 92 Oxygen Delivery Method Room Air Room Air Oxygen Flow Rate Sepsis Recent Fever Within 48 Hours Sepsis New/Unexplained Change in Mental Status Sepsis Action Taken by Nursing Oxygen Flow Rate - Titration Pulse Oximetry Post Tiitration Laboratory Data 06/28/23 15:40 06/28/23 15:40 Lab Results 06/28/23 06/28/23 Range/Units 15:40 16:37 WBC 4.83 (4.8-10.8) K/ul RBC 4.35 L (4.70-6.10) M/uL Hgb 14.4 (14.0-18.0) g/dl Hct 40.5 L (42.0-52.0) % MCV 93.1 (80.0-100.0) fL MCH 33.1 (25.0-34.0) pg MCHC 35.6 (32.0-36.0) g/dL RDW Std Deviation 44.1 (36.4-46.3) fL RDW Coeff of Jesus 12.9 (11.5-14.5) % Plt Count 209 (130-400) K/uL MPV 11.3 (9.4-12.4) fL Immature Gran % (Auto) 0.2 % Neut % (Auto) 77.3 % Lymph % (Auto) 16.1 % Mckinley % (Auto) 6.0 % Eos % (Auto) 0.0 % Baso % (Auto) 0.4 % Neut # (Auto) 3.73 (1.40-6.50) K/uL Lymph # (Auto) 0.78 L (1.20-3.40) K/uL Mckinley # (Auto) 0.29 (0.11-0.59) K/uL Eos # (Auto) 0.00 (0.00-0.50) K/uL Baso # (Auto) 0.02 (0.00-0.20) K/uL Immature Gran # (Auto) 0.01 (0.01-0.20) K/uL PT 10.9 (9.0-12.0) Seconds INR 1.0 (0.9-1.1) APTT 27 (21-31) Seconds PTT Ratio 1.0 Sodium 138 (136-145) mmol/L Potassium 4.1 (3.5-5.1) mmol/L Chloride 106 (98-107) mmol/L Carbon Dioxide 26 (21-32) mmol/L Anion Gap 6 (3-11) BUN 15 (6-23) mg/dl Creatinine 1.00 (0.6-1.4) mg/dl Est Cr Clr Drug Dosing 100.2 ml/min Est GFR ( Amer) 94.4 ml/min Est GFR (Non-Af Amer) 81.4 ml/min BUN/Creatinine Ratio 15.0 (10-20) Glucose 182 H (70-99(Fasting)) mg/dl Calcium 9.1 (8.6-10.3) mg/dl Magnesium 1.8 (1.7-2.4) mg/dl Total Bilirubin 0.6 (0.2-1.0) mg/dl AST 19 (13-39) U/L ALT 23 (7-52) U/L Alkaline Phosphatase 83 (34-104) U/L Troponin I High Sens 6.4 (0-20) pg/ml B-Natriuretic Peptide 399 H (0-100) pg/ml Total Protein 6.6 (6.0-8.3) gm/dl Albumin 4.4 (3.4-5.0) gm/dl Globulin 2.2 L (2.5-4.0) gm/dl Albumin/Globulin Ratio 2.0 (0.9-2) Urine Color Yellow Urine Appearance Clear (Clear) Urine pH 6.5 (4.5-7.5) Ur Specific Heber 1.018 (1.000-1.030) Urine Protein Negative (Negative) Urine Glucose (UA) Negative (Negative) Urine Ketones Negative (Negative) Urine Blood Negative (Negative) Urine Nitrite Negative (Negative) Urine Bilirubin Negative (Negative) Urine Urobilinogen Positive H (Negative) Ur Leukocyte Esterase Negative (Negative) Adenovirus (PCR) Not Detected (NotDetected) B. pertussis DNA (PCR) Not Detected (NotDetected) B.parapertussis DNA PCR Not Detected (NotDetected) C. pneumoniae DNA (PCR) Not Detected (NotDetected) Coronavirus OC43 (PCR) Not Detected (NotDetected) Coronavirus HKU1 (PCR) Not Detected (NotDetected) Coronavirus 229E (PCR) Not Detected (NotDetected) SARS-CoV-2 (PCR) Not Detected (NotDetected) Coronavirus NL63 (PCR) Not Detected (NotDetected) Human Metapneumovir PCR Not Detected (NotDetected) Influenza Type A (PCR) Not Detected (NotDetected) Influenza Type B (PCR) Not Detected (NotDetected) M. pneumoniae (PCR) Not Detected (NotDetected) Parainfluenza 1 (PCR) Not Detected (NotDetected) Parainfluenza 2 (PCR) Not Detected (NotDetected) Parainfluenza 3 (PCR) Not Detected (NotDetected) Parainfluenza 4 (PCR) Not Detected (NotDetected) RSV (PCR) Not Detected (NotDetected) Entero/Rhino (PCR) Not Detected (NotDetected) Administered Medications Discontinued Medications Furosemide (Furosemide Inj 20 Mg/2 Ml Vial) 20 mg IV ONE ONE Stop: 06/28/23 20:06 Last Admin: 06/28/23 20:52 Dose: 20 mg Documented By: BRIANA Ceftriaxone Sodium (Rocephin) 2,000 mg in 50 mls @ 100 mls/hr IV NOW STA Stop: 06/28/23 18:37 Last Infusion: 06/28/23 19:01 Dose: Infused Documented By: Admin: 06/28/23 18:20 Dose: 100 mls/hr Documented By: RADHA Azithromycin 500 mg/ Dextrose 255 mls @ 127.5 mls/hr IV NOW STA Stop: 06/28/23 20:07 Last Infusion: 06/28/23 20:50 Dose: Infused Documented By: Admin: 06/28/23 18:34 Dose: 127.5 mls/hr Documented By: RADHA Imaging Data Radiologist's Impression: Chest X-Ray 06/28/23 15:25 XR chest 1V portable CLINICAL HISTORY: Dyspnea. COMPARISON STUDY: Chest radiograph May 14, 2022. FINDINGS: Lung volumes are normal. There is no pneumothorax or pleural effusion. There is mild cardiomegaly without evidence for pulmonary edema. There are suspected right basilar opacity. Left lung is clear. IMPRESSION: 1. Suspected right basilar opacity. This may reflect pneumonia. Radiographic follow-up to ensure resolution is recommended. 2. Mild cardiomegaly without evidence for pulmonary edema. ACT 112: Negative or not required by law. Electronically signed by: Shahzad Feldman M.D. 06/28/2023 5:47 PM Discharge Plan Visit Data Chief Complaint: Illness Stated Complaint: COUGH, TROUBLE BREATHING ED Provider: Nestor Weinstein Discharge Problem: Hypoxia, Pneumonia Forms Stand Alone Forms: [facility] [place] Predect Prescriptions Prescriptions: No Action atorvastatin 40 mg Tablet 40 mg PO QAM bupropion HCl 150 mg Tablet Sustained-Release 12 Hr 150 mg PO AMHS lisinopril 5 mg Tablet 5 mg PO QAM metoprolol succinate 25 mg Tablet Extended Release 24 Hr 25 mg PO QAM aspirin 81 mg Tablet,Delayed Release (Dr/Ec) 81 mg PO QAM alfuzosin 10 mg tablet extended release 24 hr 10 mg PO QAM acetaminophen [Tylenol Extra Strength] 500 mg Tablet 500 mg PO DAILY PRN (Reason: Pain) omeprazole 20 mg capsule,delayed release(DR/EC) 20 mg PO QAM Trulicity 3 mg/0.5 mL pen injector 3 mg SUBCUT WK Rx Instructions: TUESDAYS insulin glargine [Lantus Solostar U-100 Insulin] 100 unit/mL (3 mL) Insulin Pen 10 unit SUBCUT DAILY PRN (Reason: pt decides) Referrals Referrals: Claus Sullivan MD [Primary Care Provider] - Discharge Problem: Pneumonia Qualifiers: Pneumonia type: due to unspecified organism Laterality: unspecified laterality Lung location: unspecified part of lung Qualified Code(s): J18.9 - Pneumonia, unspecified organism
[2023-06-28 16:36] LABS: Partial Thromboplastin Time 27 Seconds (21-31); Prothrombin Time 10.9 Seconds (9.0-12.0)
[2023-06-28 16:45] LABS: Appearance Urine Clear (Clear); Bilirubin Urine Negative (Negative); Blood Urine Negative (Negative); Color Urine Yellow; Glucose Urine UA Negative (Negative); Ketones Urine Negative (Negative); Leukocyte Esterase Urine Negative (Negative); Nitrite Urine Negative (Negative); Protein Urine Negative (Negative); Specific Gravity Urine 1.018 (1.000-1.030); Urobilinogen Urine Positive (Negative); pH Urine 6.5 (4.5-7.5)
--- NOTE | 2023-06-28 16:57 | Electrocardiogram Report ---
Test Reason : Blood Pressure : / mmHG Vent. Rate : 094 BPM Atrial Rate : 000 BPM P-R Int : 000 ms QRS Dur : 136 ms QT Int : 382 ms P-R-T Axes : 000 048 187 degrees QTc Int : 477 ms Poor data quality, interpretation may be adversely affected Probable Sinus rhythm with occasional Premature atrial complexes Left bundle branch block Abnormal ECG When compared with ECG of 14-MAY-2022 17:59, Baseline artifact makes rhythm more difficult to assess Probably no significant change. Confirmed by Ke Espinoza ([id number]) on 06/28/2023 4:56:46 PM Referred By: Confirmed By:Ke Espinoza
[2023-06-28 16:59] LABS: Adenovirus PCR Not Detected (NotDetected); Bordetella parapertussis PCR Not Detected (NotDetected); Bordetella pertussis PCR Not Detected (NotDetected); Chlamydia pneumoniae PCR Not Detected (NotDetected); Coronavirus 229E PCR Not Detected (NotDetected); Coronavirus CoV-2 (COVID19)PCR Not Detected (NotDetected); Coronavirus HKU1 PCR Not Detected (NotDetected); Coronavirus NL63 PCR Not Detected (NotDetected); Coronavirus OC43PCR Not Detected (NotDetected); Human Metapneumovirus PCR Not Detected (NotDetected); Influenza A PCR Not Detected (NotDetected); Influenza B PCR Not Detected (NotDetected); Mycoplasma pneumoniae PCR Not Detected (NotDetected); Parainfluenza Virus 1 PCR Not Detected (NotDetected); Parainfluenza Virus 2 PCR Not Detected (NotDetected); Parainfluenza Virus 3 PCR Not Detected (NotDetected); Parainfluenza Virus 4 PCR Not Detected (NotDetected); Respiratory Syncytial VirusPCR Not Detected (NotDetected); Rhinovirus/Enterovirus PCR Not Detected (NotDetected)
--- NOTE | 2023-06-28 17:48 | XRay Report ---
XR chest 1V portable CLINICAL HISTORY: Dyspnea. COMPARISON STUDY: Chest radiograph May 14, 2022. FINDINGS: Lung volumes are normal. There is no pneumothorax or pleural effusion. There is mild cardio megaly without evidence for pulmonary edema. There are suspected right basilar opacity. Left lung is clear. IMPRESSION: 1. Suspected right basilar opacity. This may reflect pneumonia. Radiographic follow-up to ensure reso lution is recommended. 2. Mild cardiomegaly without evidence for pulmonary edema. ACT 112: Negative or not required by law. Electronically signed by: Shahzad Feldman M.D. 06/28/2023 5:47 PM
[2023-06-28] MEDS: cefTRIAXone SODIUM 2,000 MG/50 ML BAG IV STA (18:20)
[2023-06-28] MEDS: AZITHROMYCIN 500 MG in DEXTROSE 5% 250 ML IV STA (18:34)
--- NOTE | 2023-06-28 19:26 | History & Physical Report ---
Date of Service June 28, 2023 Assessment & Plan (1) Aspiration pneumonitis: (2) Hypoxia: Plan: Patient is 58 year old male with PMH DM II, HTN, HLD, chronic LBBB, BPH, depression, GERD, ascending aortic aneurysm presented to ER with complaint of coughing/choking on saliva with associated SOB that occurred prior to arrival. No prior choking or dysphagia. In ER afebrile. Upon ER arrival oxygen saturating noted 85% on room air and had reported wheezing. Patient was placed on oxygen. During ER course symptoms resolved and patient was able to be weaned off of oxygen and is satting 95% on room air. CXR: Suspected right basilar opacity. Mild cardiomegaly without evidence for pulmonary edema. In ER was given Rocephin, azithromycin for possible pneumonia Suspect hypoxia related to aspiration pneumonitis. Currently asymptomatic, lungs clear and not hypoxic on RA. Will hold on further antibiotics at this time CXR in am CBC, BMP in am (3) Diastolic dysfunction: (4) Aortic valve regurgitation: Plan: History mild-moderate aortic regurgitation BNP: 399, Troponin negative CXR: Mild cardiomegaly without evidence for pulmonary edema. Suspect SOB today related to aspiration and less likely acute fluid overload. 1+pitting edema BLE is at baseline per patient report. Denies orthopnea or exertional SOB Lasix 20mg IV x 1 dose and monitor response Monitor I&O's, low sodium diet 09/24/2022 echo: EF: 55%, grade 1 diastolic dysfunction, mild aortic valve regurgitation, mild mitral regurgitation, mild tricuspid regurgitation. No evidence of pulmonary hypertension. Ascending aorta moderately enlarged at 4.7 cm (5) Thoracic aortic aneurysm: Plan: Stable 05/14/2023 CT chest: Mild aneurysmal dilation of ascending aorta measuring 4.6 x 4.5 cm (6) Diabetes mellitus, type 2: Plan: A1c: 6.2 on 06/17/2023 Hold home Trulicity. Has been using basal insulin as needed at home Novolog sliding scale per protocol (7) Hypertension: Plan: Stable Continue lisinopril, metoprolol succinate (8) Hyperlipidemia: Plan: Continue atorvastatin (9) LBBB (left bundle branch block): Plan: Chronic LBBB (10) BPH (benign prostatic hyperplasia): Plan: Continue alfuzosin (11) Depression: Plan: Stable Continue bupropion DVT Prophylaxis Lovenox SQ Full Code as per discussion with pt Follows with Dr Sullivan for routine care Pt was seen and care coordinated with Dr Mckeon. See addendum I spent a total of 75 minutes reviewing notes, outpatient records, labs, medication, coordinating, documenting and providing care for this patient excluding time spent in the performance of separately billed services. History of Present Illness Chief Complaint: SOB/coughing episode Primary Care Provider: Claus Sullivan MD Patient is 58 year old male with PMH DM II, HTN, HLD, chronic LBBB, BPH, depression, GERD, ascending aortic aneurysm presented to ER with complaint of coughing episode. Patient was sitting today when he "choked on spit". States had continued coughing and felt short of breath and dizzy. States felt like couldn't catch his breath and came to ER for evaluation. Patient was not eating or drinking at the time of choking episode. Prior to this episode today denies any choking on liquids or food. He states he has been feeling in his normal health. Denies any fever, chills, recent cough or congestion sympt oms. States has chronic BLE edema that improves with elevation of legs. Denies any increased LE edema. Denies diaphoresis, N/V/D/C, DUMONT, syncope, vision changes, neck pain, CP, orthopnea, exertional SOB, palpitations, hemoptysis, sore throat, otalgia, rhinorrhea, abdominal pain, paresthesias, weakness, increased extremity edema, rashes, urinary symptoms. Upon ER arrival oxygen saturating noted 85% on room air and had reported wheezing. Patient was placed on oxygen. During ER course symptoms resolved and patient was able to be weaned off of oxygen and is satting 95% on room air. Allergies Allergy/AdvReac Type Severity Reaction Status Date / Time empagliflozin AdvReac Severe EXTREME Verified 06/28/23 18:28 [From Jardiance] DROWSINESS/EXCESSIVE URINATION/DEHYDRATION Home Medications Medication Instructions Recorded Confirmed Type atorvastatin 40 mg tablet 40 mg PO QAM 04/08/18 06/28/23 History bupropion HCl 150 mg tablet,12 hr 150 mg PO AMHS 04/08/18 06/28/23 History sustained-release lisinopril 5 mg tablet 5 mg PO QAM 04/08/18 06/28/23 History metoprolol succinate 25 mg 25 mg PO QAM 04/08/18 06/28/23 History tablet,extended release 24 hr acetaminophen 500 mg tablet 500 mg PO DAILY PRN Pain 05/07/22 06/28/23 History (Tylenol Extra Strength) alfuzosin 10 mg tablet,extended 10 mg PO QAM 05/07/22 06/28/23 History release 24 hr aspirin 81 mg tablet,delayed 81 mg PO QAM 05/07/22 06/28/23 History release dulaglutide 3 mg/0.5 mL 3 mg subcut WK 06/28/23 06/28/23 History subcutaneous pen injector (Trulicity) insulin glargine 100 unit/mL (3 10 unit subcut DAILY PRN pt decides 06/28/23 06/28/23 History mL) subcutaneous pen (Lantus Solostar U-100 Insulin) omeprazole 20 mg capsule,delayed 20 mg PO QAM 06/28/23 06/28/23 History release Past Med/Surg History Medical History Aortic valve regurgitation Thoracic aortic aneurysm 4.7cm on echo, 2018 Gastroparesis Obesity GERD (gastroesophageal reflux disease) Diabetes mellitus, type 2 IDDM Depression DVT (deep venous thrombosis) 15 YEARS AGO Sleep apnea NO DEVICE Hypertension Hyperlipidemia Surgical History History of eye surgery MUSCULAR SURGERY X2 History of herniorrhaphy CHILDHOOD Family History Other Cancer Diabetes Social History (Updated 06/28/23 @ 21:19 by Peggy Medina PA-C) Smoking Status: Former smoker Second Hand Exposure: No; Do You Dip or Chew Tobacco: No; Hx Alcohol Use: Yes (4 drinks once a week) Alcohol type: other Alcohol Intake Frequency: 2-4 x/Month Alcohol Intake Frequency Comment: 2 times a month Hx Substance Use: No Preferred Language: Cambodian Communication Ability: Effective Linux Programmer Required: No Beliefs That Will Affect Care: Spiritual Current Living Situation: Alone Feels Safe at Home: Yes Assistive Devices: None Review of Systems Review of Systems: All systems reviewed & are unremarkable except as noted in HPI & below Physical Exam Physical Exam: General: no distress, obese Head: normocephalic, atraumatic Eyes: conjunctiva non-injected, anicteric ENT: normal inspection external ears, nose, mucous membranes moist Neck: supple, trachea midline Lungs: clear, no respiratory distress, no wheezing/rhonchi/rales CV: RRR, no murmur, 1+ pretibial edema Abd: normal BS, soft, non-tender Ext: no cyanosis, no calf tenderness Neuro: A&O x 3, no focal deficits noted, normal affect Skin: warm, dry Results & Data Results & Data Vital Signs (Past 12 Hours) Vital Signs Temp Pulse Pulse Resp BP BP Pulse Ox 06/28/23 18:19 76 18 165/84 H 96 06/28/23 16:34 85 18 180/94 H 95 06/28/23 15:27 85 L 06/28/23 15:20 36.8 C 99 H 18 175/91 H 85 L O2 Del Method O2 Flow Rate 06/28/23 18:19 Room Air 06/28/23 16:34 Room Air 06/28/23 15:27 Nasal Cannula 0 06/28/23 15:20 Room Air Laboratory Results Short CBC 06/28/23 Range/Units 15:40 WBC 4.83 (4.8-10.8) K/ul Hgb 14.4 (14.0-18.0) g/dl Hct 40.5 L (42.0-52.0) % Plt Count 209 (130-400) K/uL BMP 06/28/23 15:40 Sodium 138 Potassium 4.1 Chloride 106 Carbon Dioxide 26 BUN 15 Creatinine 1.00 Glucose 182 H Calcium 9.1 Liver Function 06/28/23 Range/Units 15:40 Total Bilirubin 0.6 (0.2-1.0) mg/dl AST 19 (13-39) U/L ALT 23 (7-52) U/L Alkaline Phosphatase 83 (34-104) U/L Albumin 4.4 (3.4-5.0) gm/dl Urine 06/28/23 Range/Units 16:37 Urine Color Yellow Urine Appearance Clear (Clear) Urine pH 6.5 (4.5-7.5) Ur Specific [place] 1.018 (1.000-1.030) Urine Protein Negative (Negative) Urine Glucose (UA) Negative (Negative) Diagnostic Findings Chest X-Ray 06/28/23 15:25 XR chest 1V portable CLINICAL HISTORY: Dyspnea. COMPARISON STUDY: Chest radiograph May 14, 2022. FINDINGS: Lung volumes are normal. There is no pneumothorax or pleural effusion. There is mild cardiomegaly without evidence for pulmonary edema. There are suspected right basilar opacity. Left lung is clear. IMPRESSION: 1. Suspected right basilar opacity. This may reflect pneumonia. Radiographic follow-up to ensure resolution is recommended. 2. Mild cardiomegaly without evidence for pulmonary edema. ACT 112: Negative or not required by law. Electronically signed by: Shahzad Feldman M.D. 06/28/2023 5:47 PM ECG Additional Comments: poor tracing affecting definitive rhythm interpretation, LBBB Code Status & VTE Plan VTE Prophylaxis Plan VTE Prophylaxis will be ordered: Yes Supervising Physician Co-Signing Physician Notes I have seen and discussed the case with the collaborating PA-C. I agree with the above H&P. I have reviewed and confirmed the patients medical history, the findings on physical examination, and the patients diagnosis and treatment plan with Frieda CHRISTOPHER and agree with the information documented. In short, Mr. Bush is a 58 year old gentleman with history of G1DD, HTN, HLD, DMTII, who is admitted given concern of hypoxia after aspiration episode at home. Patient briefly required NC and noted relief of symptoms with CTX, Azithromycin and IV lasix. EXAM with 1+ pitting edema bilateral lower extremities. DARCIE+. diminished breath sounds 2/2 habitus. BNP was noted to be 399. CXR with predominance of RLL infiltrate consistent with aspiration. Plan: monitor off of antibiotics for presumed aspiration pneumonitis given prompt resolution of symptoms. IV lasix 2/2 BLE pitting edema +1 on exam with notably elevated BNP. Rest of plan as above. I spent a total of 35 minutes coordinating, documenting, and providing care for this patient excluding time spent in the performance of separately billed services. All of the aforementioned completed outside of collaborating with the assigned physican regulatory affairs assistant for a full treatment plan.
[2023-06-28] MEDS: FUROSEMIDE INJ 20 MG/2 ML VIAL IV ONE (20:52)
[2023-06-28] MEDS ORDERED: POLYETHYLENE (MIRALAX) 17 GM PACK PO PRN (22:46)
[2023-06-28] MEDS ORDERED: ONDANSETRON INJ 2 MG/ML 2 ML VIAL IV PRN (22:46)
[2023-06-28] MEDS ORDERED: GLUCAGON FOR INJ 1 MG VIAL SQ PRN (22:46)
[2023-06-28] MEDS ORDERED: CARBOHYDRATES FOR HYPOGLYCEMIA PO PRN (22:46)
[2023-06-28] MEDS ORDERED: GLUCOSE 40% GEL 15 GM TUBE PO PRN (22:46)
[2023-06-28] MEDS ORDERED: GLUCOSE 10 TAB/TUBE PO PRN (22:46)
[2023-06-28] MEDS ORDERED: DEXTROSE 50% 50 ML SYRINGE IV PRN (22:46)
[2023-06-28] MEDS: INSULIN ASPART PER UNIT CHARGE SC SCH (23:18)
[2023-06-28] MEDS: buPROPion SR 150 MG TABCR PO SCH (23:27)
[2023-06-28] MEDS: ENOXAPARIN INJ 40 MG/0.4 ML SYR SQ SCH (23:45)
--- OUTSIDE RECORDS SUMMARY | 2023-06-29 02:02 | External Medical Summary | Summary of Care ---
Author Name Unknown Organization [facility] Address [address] [place] [address] Phone [phone] Care Team Providers Care Culturist Name Role Phone Claus Sullivan MD Primary Care Provider + Reason for Visit * Reason Comments Outpatient Testing Encounter Details Date Type Department Care Team (Late st Contact Info) Description 06/17/2023 1:30 PM EST Laboratory Laboratory Scenery [facility] [address] [place] [address] [facility] Scenery [address] [place] [address] Fatty liver; Type 2 diabetes mellitus with proteinuria (HCC); Current mild episode of major depressive disorder without prior episode (HCC); BPH with obstruction/lower urinary tract symptoms Allergies Active Allergy Reactions Criticality Noted Date Comments Empagliflozin Other (Please comment) 10/26/2018 Caused extreme drowsiness and excessive urination and dehydration documented as of this encounter (statuses as of 06/17/2023) Medications Medication Sig Dispensed Refills Start Date End Date Status ONETOUCH ULTRASOFT LANCETS MISCIndications:DM type 2, goal A1c below 7 Use up to four times a day as directed 1 Box 11 09/09/2012 Active aspirin enteric coated 81 MG TBEC Take 1 Tablet by mouth in the morning. 100 Tab 3 03/03/2016 Active Blood Glucose Monitoring Suppl (ONETOUCH ULTRA SYSTEM) w/Device KITIndications:Type 2 diabetes mellitus with hemoglobin A1c goal of less than 7.0% (HCC) Use to check blood sugar 2 times a day or as directed Dx. E 11.9 1 Kit 0 01/14/2017 Active Acetaminophen 500 MG Oral Tablet Take 1 Tablet by mouth daily as needed for Pain. 0 Active OneTouch Ultra Blue In Vitro Strip (Glucose Blood)Indications:T ype 2 diabetes mellitus with hemoglobin A1c goal of less than 7.0% (HCC) Use to check sugars four times a day 400 Strip 1 04/07/2021 Active Insulin Pen Needle 31G X 8 MM Use with Lantus insulin pen 300 Each 1 04/07/2021 Active Omeprazole 20 MG Oral Capsule Delayed Release (PriLOSEC) TAKE ONE CAPSULE BY MOUTH IN THE MORNING 90 Capsule 3 05/12/2022 07/18/2023 Active Metoprolol Succinate ER 25 MG Oral Tablet Extended Release 24 Hour (toPROL XL) TAKE ONE TABLET BY MOUTH IN THE MORNING 90 Tablet 3 07/20/2022 08/17/2023 Active Lisinopril 5 MG Oral Tablet (Prinivil)Indicatio ns:Proteinuria TAKE ONE TABLET BY MOUTH IN THE MORNING 90 Tablet 3 07/20/2022 08/17/2023 Active Atorvastatin Calcium 40 MG Oral Tablet (Lipitor)Indication s:Hyperlipidemia Take 1 Tablet by mouth in the morning. 90 Tablet 1 08/18/2022 Active Alfuzosin HCl ER 10 MG Oral Tablet Extended Release 24 Hour (Uroxatral) Take 1 Tablet by mouth in the morning. 90 Tablet 3 08/21/2022 Active Insulin Glargine Solostar 100 UNIT/ML Subcutaneous Solution Pen-injector (Lantus SoloStar)Indication s: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 6 mL 2 09/24/2022 Active Additional Information Patient taking differently:10 Units SubcutaneousPRN, Reported on 06/02/2023 Trulicity 3 MG/0.5ML Subcutaneous Solution Pen-injector (Dulaglutide)Indica tions:Type 2 diabetes mellitus with proteinuria (HCC) Inject 3 mg under the skin once a week. 2 mL 3 02/18/2023 Active buPROPion HCl ER (SR) 150 MG Oral Tablet Extended Release 12 Hour (Wellbutrin SR)Indications:Depr ession Take 1 Tablet by mouth in the morning and 1 Tablet before bedtime. 180 Tablet 2 05/18/2023 Active documented as of this encounter (statuses as of 06/17/2023) Active Problems Problem Noted Date Diagnosed Date BPH with obstruction/lower urinary tract symptom s 05/26/2022 Essential (primary) hypertension 05/26/2022 Left bundle-branch block, unspecified 05/26/2022 Aortic valve sclerosis 05/25/2021 Mild aortic regurgitation 05/25/2021 Fatty liver 03/17/2021 Gastro-esophageal reflux disease without esophag itis 03/17/2021 History of 2019 novel coronavirus disease (COVID -19) 03/17/2021 SVT (supraventricular tachycardia) 11/30/2018 Gastroparesis 09/16/2018 History of giardiasis 05/04/2018 Class 2 severe obesity due t o excess calories with serious comorbidity in adult 05/04/2018 Mixed hyperlipidemia 11/01/2017 Current mild episode of neil r depressive disorder without prior episode 11/01/2017 History of DVT (deep vein thrombosis) 11/01/2017 Type 2 diabetes mellitus with proteinuria 2016 Ascending aortic aneurysm 07/15/2016 Type 2 diabetes mellitus wit h hemoglobin A1c goal of less than 7.0% 09/08/2012 Overview: ICD-10 update of inactive term documented as of this encounter (statuses as of 06/17/2023) Resolved Problems Problem Noted Date Diagnosed Date Resolved Date Major depressive disorder with single episode 05/26/19 23 11/16/2022 Cellulitis of left lower extremity 05/26/2022 11/16/2022 Left bundle-branch block, unspecified 05/26/2022 11/16/2022 Age-related nuclear cataract, bilateral 05/07/2022 05/08/2022 Age-related nuclear cataract, bilateral 05/07/2022 05/08/2022 Age-related nuclear cataract, bilateral 05/07/2022 05/26/2022 Age-related nuclear cataract, bilateral 03/17/2021 11/03/2021 BPH without obstruction/lowe r urinary tract symptoms 03/17/2021 05/26/2022 Class 2 severe obesity due t o excess calories with serious comorbidity and body mass index (BMI) of 37.0 to 37.9 in adult 06/12/2020 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/2018 03/17/2021 Depression 06/08/2014 11/01/2017 Hyperlipidemia 09/27/2013 11/01/2017 Hyperlipidemia with target LDL less than 100 3 09/27/2013 Overview: ICD-10 update of inactive term DVT (deep venous thrombosis) 09/08/2012 11/01/2017 Overview: Left leg DVT (deep venous thrombosis) 09/08/2012 Overview: left calf documented as of this encounter (statuses as of 06/17/2023) Immunizations Name Administration Dates Next Due COVID-19 mRNA, LNP-s, No Pre serve, 2-Dose Series (IDx) 03/26/2021,08/07/2020,07/10/2020 COVID-19, LNP-s, No Preserve , Néstor-sucrose, Ages 12+ (Pfizer) 11/11/2021 Covid-19, Mrna, Lnp-s, Pf, B ivalent, 30 Mcg, IM, 12 yrs and above (IDx) 03/16/2022 Hepatitis B, 20+ yrs 12/26/2013,07/24/2013,06/26 Pneumococcal Conjugate Vacci ne, 20-valent ([id number]) 11/03/2021 Pneumococcal Polysaccharide PPV23 (Pneumovax) 12/22/2012 Seasonal Influenza, PF, 6 M & above, IM , (FluLaval or Fluzone) 02/08/2023,03/17/2021,06/12/2020,03/24,02/02/2018,06/25/2017 Seasonal Influenza, Quadriva lent, No Preserve, IM 03/16/2022,03/03/2016,04/19/2015 Seasonal Influenza, Split, I IV3, With Preserve, Inj 04/02/2014,03/24/2013 TD, Preservative Free 06/02/2023 TDAP (age 10 and older)(Boostrix) 12/22/2012 Zoster Vaccine Recombinant (Shingrix) 05/04/2018 ,02/02/2018 04/04/2018 documented as of this encounter Social History Tobacco Use Types Packs/Day Years Used Date Smoking Tobacco: Former Cigarettes 1 28 1 983 - 05/24/2010 Smokeless Tobacco: Never Alcohol Use Standard Drinks/Week Comments Yes 3.3 (1 standard drink = 0.6 oz p ure alcohol) 2 times a month if that PHQ-2 Answer Date Recorded PHQ Adult Total Score 0 05/14/2022 Hunger Vital Sign Answer Date Recorded Within the past 12 months, y ou worried that your food would run out before you got the money to buy more. Never true 05/12/20 Within the past 12 months, t he food you bought just didn't last and you didn't have money to get more. Never true 05/12/2022 Sex and Gender Information Value Date Recorded Sex Assigned at Male 09/16/2018 7:56 AM EDT Gender Identity Male 09/16/2018 7:56 AM EDT Sexual Orientation Choose not to disclose 2018 7:56 AM EDT Job Start Date Occupation Industry Not on file Not on file Not on file documented as of this encounter Plan of Treatment Upcoming Encounters Date Type Department Care Team (Latest Contact Info) Description 11/02/2023 11:00 AM EDT Office Visit Cardiology, [facility] [address] [place] [id number] Sommer Mcqueen PA-C [address] [place] [address] 11/05/2023 11:00 AM EDT Hospital Encounter ENDO OSS, Endoscopy Room [facility] [address] [place] [phone] Cornell Gonzalez MD [address] [place] [address] 11/05/2023 11:00 AM EDT - 11/05/2023 11:30 AM EDT Surgery ENDO OSSC, Endoscopy Room [facility] [address] [place] [address] [phone] Cornell Gonzalez MD [address] [place] [address] COLONOSCOPY FLEXIBLE PROXIMAL DIAGNOSTIC 12/01/2023 12:40 PM EDT Office Visit General Internal Medicine [facility] [address] [facility] [place] [address] Claus Sullivan MD [address] [facility] [place] [address] 01/05/2024 1:30 PM EDT Office Visit Urology, [facility] [address] [facility] [place] [address] Gage Norris MD [address] [place] [address] Pending Results Name Type Priority Associated Diagnoses Date /Time COMPREHENSIVE METABOLIC PANEL Lab Routine Fatty liver 06/17/2023 1:33 PM EST LIPID PANEL WITH DIRECT LDL IF TG IS HIGH Lab Routine Fatty liver 06/17/2023 1:33 PM EST HEMOGLOBIN A1C Lab Routine Type 2 diabetes mellitus with proteinuria (HCC) 06/17/2023 1:33 PM EST CBC WITH WBC DIFFERENTIAL Lab Routine Current mild episode of major depressive disorder without prior episode (HCC) 06/17/2023 1:33 PM EST PSA Lab Routine BPH with obstruction/lower urinary tract symptoms 06/17/2023 1:33 PM EST CBC Lab Routine Current mild episode of major depressive disorder without prior episode (HCC) 06/17/2023 1:33 PM EST DIFFERENTIAL, AUTOMATED Lab Routine Current mild episode of major depressive disorder without prior episode (HCC) 06/17/2023 1:33 PM EST Scheduled Procedures Name Priority Associated Diagnoses Date/Ti me COLONOSCOPY FLEXIBLE PROXIMAL DIAGNOSTIC Recall Special screening for malignant neoplasms, colon 11/05/2023 11:00 AM EDT Health Maintenance Due Date Last Done Comments Cologuard 2008 Sigmoidoscopy 2008 Fecal Occult Blood Test 10/27/2019 10/26/2018 COVID-19 Vaccine ( season) 2023 03/16/2022, 11/11/2021, 03/26/2021, Additional history exists Diabetic Eye Exam 02/12/2023 02/12/2022, , 05/20/2020, Additional history exists Depression Screening 05/14/2023 05/14/2022, 07/13/19 15 HbA1c 06/06/2023 12/04/2022, 04/0 08/2022, 05/07/2022 (Done elsewhere), Additional history exists Colonoscopy 07/17/2023 07/17/2013, 07/17/2013 Colorectal Cancer Screening 07/17/2023 GFR 12/05/2023 12/04/2022, 07/2022, 05/14/2022, Additional history exists Albumin/Creatinine Ratio 05/03/2024 023, 05/14/2022, 05/19/2021, Additional history exists Diabetic Foot Exam 06/02/2024 06/02/2023, 1 07/15/2021, 03/17/2021, Additional history exists Lipid Panel 05/14/2027 05/14/2022, 02/22, 12/08/2019, Additional history exists DTaP,Tdap,and Td Vaccines (3 - Td or Tdap) 06/02/2033 06/02/2023, 12/22/2012 Hepatitis B Completed 12/26/2013, 030 07/2013, 06/26/2013 Zoster Vaccines Completed 05/04/2018, 02/02/2018 Pneumococcal Vaccine: Pediatrics (0 to 5 Years) and At-Risk Patients (6 to 64 Years) Completed 11/03/2021, 12/22/2012 Influenza Vaccine (FLU shot) Completed , 03/16/2022, 03/17/2021, Additional history exists LUNG CANCER SCREENING - USE SMARTSET [id number] Completed 05/14/2023, 05/14/2016 GARDASIL-HPV IMMUNIZATION SERIES Aged Out No longer eligible based on patient's age to complete this topic MENINGOCOCCAL (MENACTRA/MENVEO) Aged Out No longer eligible based on patient's age to complete this topic documented as of this encounter Medical Devices Not on filedocumented as of this encounter Visit Diagnoses Diagnosis Fatty liver Other chronic nonalcoholic liver disease Type 2 diabetes mellitus with proteinuria (HCC) Current mild episode of major depressive disorder without prior episode (HCC) BPH with obstruction/lower urinary tract symptoms Hypertrophy of prostate with urinary obstruction and other lower urinary tract symptoms (LUTS) Special screening for malignant neoplasms, colon documented in this encounter Care Teams Culturist Relationship Specialty Start Date End Date Claus Sullivan MD [address] [place] [address] PCP - General Internal Medicine 09/08/12 documented as of this encounter
--- OUTSIDE RECORDS SUMMARY | 2023-06-29 02:02 | External Medical Summary | Summary of Care ---
Author Name Unknown Organization [facility] Address [address] [facility] [address] Phone [phone] Care Team Providers Care Manager Print Name Role Phone Claus Phelan MD Primary Care Provider + Reason for Visit * Reason Comments Medication Refill Encounter Details Date Type Department Care Team (Late st Contact Info) Description 06/22/2023 Refill General Internal Medicine [facility] [address] [facility] [place] [address] Claus Phelan MD [address] [place] [address] Type 2 diabetes mellitus with proteinuria (HCC) Allergies Active Allergy Reactions Criticality Noted Date Comments Empagliflozin Other (Please comment) 10/26/2018 Caused extreme drowsiness and excessive urination and dehydration documented as of this encounter (statuses as of 06/23/2023) Medications Medication Sig Dispensed Refills Start Date End Date Status [facility] MISCIndications:DM type 2, goal A1c below 7 Use up to four times a day as directed 1 Box 11 09/09/2012 Active aspirin enteric coated 81 MG TBEC Take 1 Tablet by mouth in the morning. 100 Tab 3 03/03/2016 Active Blood Glucose Monitoring Suppl (ONETOUCH ULTRA SYSTEM) w/Device KITIndications:Typ e 2 diabetes mellitus with hemoglobin A1c goal of less than 7.0% (HCC) Use to check blood sugar 2 times a day or as directed Dx. E 11.9 1 Kit 0 01/14/2017 Active Acetaminophen 500 MG Oral Tablet Take 1 Tablet by mouth daily as needed for Pain. 0 Active OneTouch Ultra Blue In Vitro Strip (Glucose Blood)Indications: Type 2 diabetes mellitus with hemoglobin A1c goal of less than 7.0% (HCC) Use to check sugars four times a day 400 Strip 1 04/07/2021 Active Insulin Pen Needle 31G X 8 MM Use with Lantus insulin pen 300 Each 1 04/07/2021 Active Omeprazole 20 MG Oral Capsule Delayed Release (PriLOSEC) TAKE ONE CAPSULE BY MOUTH IN THE MORNING 90 Capsule 3 05/12/2022 4 Active Metoprolol Succinate ER 25 MG Oral Tablet Extended Release 24 Hour (toPROL XL) TAKE ONE TABLET BY MOUTH IN THE MORNING 90 Tablet 3 07/20/2022 4 Active Lisinopril 5 MG Oral Tablet (Prinivil)Indicati ons:Proteinuria TAKE ONE TABLET BY MOUTH IN THE MORNING 90 Tablet 3 07/20/2022 4 Active Atorvastatin Calcium 40 MG Oral Tablet (Lipitor)Indicatio ns:Hyperlipidemia Take 1 Tablet by mouth in the morning. 90 Tablet 1 08/18/2022 Active Alfuzosin HCl ER 10 MG Oral Tablet Extended Release 24 Hour (Uroxatral) Take 1 Tablet by mouth in the morning. 90 Tablet 3 08/21/2022 Active Insulin Glargine Solostar 100 UNIT/ML Subcutaneous Solution Pen-injector (Lantus SoloStar)Indicatio ns: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 6 mL 2 09/24/2022 Active Additional Information Patient taking differently:10 Units SubcutaneousPRN, Reported on 06/02/2023 buPROPion HCl ER (SR) 150 MG Oral Tablet Extended Release 12 Hour (Wellbutrin SR)Indications:Dep ression Take 1 Tablet by mouth in the morning and 1 Tablet before bedtime. 180 Tablet 2 05/18/2023 Active Trulicity 3 MG/0.5ML Subcutaneous Solution Pen-injector (Dulaglutide)Indic ations:Type 2 diabetes mellitus with proteinuria (HCC) Inject 3 mg under the skin once a week. 2 mL 3 06/23/2023 Active Trulicity 3 MG/0.5ML Subcutaneous Solution Pen-injector (Dulaglutide)Indic ations:Type 2 diabetes mellitus with proteinuria (HCC) Inject 3 mg under the skin once a week. 2 mL 3 02/18/2023 4 Discontinue d(Refill) documented as of this encounter (statuses as of 06/23/2023) Active Problems Problem Noted Date Diagnosed Date [...] as of this encounter (statuses as of 06/23/2023) Resolved Problems Problem Noted Date Diagnosed Date [...] as of this encounter (statuses as of 06/23/2023) Immunizations Name Administration Dates Next Due COVID-19 mRNA, LNP-s, No Pre serve, 2-Dose Series (Transphorm) 03/26/2021,08/07/2020,07/10/2020 COVID-19, LNP-s, No Preserve , Néstor-sucrose, Ages 12+ (Pfizer) 11/11/2021 Covid-19, Mrna, Lnp-s, Pf, B ivalent, 30 Mcg, IM, 12 yrs and above (Transphorm) 03/16/2022 Hepatitis B, 20+ yrs 12/26/2013,07/24/2013,06/26 Pneumococcal Conjugate Vacci ne, 20-valent ([id number]) 11/03/2021 Pneumococcal Polysaccharide PPV23 (Pneumovax) 12/22/2012 Seasonal [...] money to buy more. Never true 05/12/20 22 Within the past 12 months, t he [...] on file documented as of this encounter Miscellaneous Notes * Telephone Encounter - Claus Phelan MD - 06/23/2023 8:52 AM ESTSigned Prescriptions: Disp Refills Trulicity 3 MG/0.5ML Subcutaneous Solution*2 mL 3 Sig: Inject 3 mg under the skin once a week. Authorizing Provider: CLAUS PHELAN * Telephone Encounter - Sarah Yip LPN - 06/23/2023 8:46 AM ESTPending Prescriptions: Disp Refills Trulicity 3 MG/0.5ML Subcutaneous Solution*2 mL 3 Sig: Inject 3 mg under the skin once a week. * Telephone Encounter - Sarah Yip LPN - 06/23/2023 8:33 AM EST Pending Prescriptions: Disp Refills Trulicity 3 MG/0.5ML Subcutaneous Solutio*2 mL 3 Sig: Inject 3 mg under the skin once a week. Last Visit: 06/02/2023 (in office), Visit date not found (telemedicine) Next Visit: 12/01/2023 Last date the medication was ordered: 02/18/23 Patient Active Problem List Diagnosis Code Type 2 diabetes mellitus with hemoglobin A1c goal of less than 7.0% ([facility]) E11.9 Ascending aortic aneurysm ([facility]) I71.21 Type 2 diabetes mellitus with proteinuria ([facility]) E11.29, R80.9 Mixed hyperlipidemia E78.2 Current mild episode of major depressive disorder without prior episode ([facility]) F32.0 History of DVT (deep vein thrombosis) Z86.718 History of giardiasis Z86.19 Class 2 severe obesity due to excess calories with serious comorbidity in adult ([facility]) E66.01 Gastroparesis K31.84 SVT (supraventricular tachycardia) I47.10 Fatty liver K76.0 Gastro-esophageal reflux disease without esophagitis K21.9 History of 2019 novel coronavirus disease (COVID-19) Z86.16 Aortic valve sclerosis I35.8 Mild aortic regurgitation I35.1 BPH with obstruction/lower urinary tract symptoms N40.1, N13.8 Essential (primary) hypertension I10 Left bundle-branch block, unspecified I44.7 Labs: Lab Results Component Value Date/Time CREATININE - [facility] 1.0 06/17/2023 01:33 PM CREATININE - [facility] 1.1 06/12/2020 12:58 PM CREATININE, RANDOM URINE - [facility] 85 05/03/2023 02:47 PM CREATININE, RANDOM URINE - [facility] 258 12/08/2019 12:10 PM Lab Results Component Value Date/Time POTASSIUM - [facility] 4.1 06/17/2023 01:33 PM POTASSIUM - [facility] 4.7 06/12/2020 12:58 PM Lab Results Component Value Date/Time TSH - [facility] 2.02 08/25/2022 04:12 PM TSH - [facility] 3.35 04/07/2019 02:51 PM Lab Results Component Value Date/Time LDL CHOLESTEROL (CALCULATED) - [facility] 38 06/17/2023 01:33 PM LDL CHOLESTEROL (CALCULATED) - [facility] 55 05/14/2022 01:12 PM LDL CHOLESTEROL (CALCULATED) - [facility] 55 12/08/2019 12:10 PM LDL CHOLESTEROL (CALCULATED) - [facility] 48 04/07/2019 02:39 PM LDL CHOLESTEROL (DIRECT MEASURE) - [facility] NOT APPLICABLE 12/08/2019 12:10 PM LDL CHOLESTEROL (DIRECT MEASURE) - [facility] NOT APPLICABLE 04/07/2019 02:39 PM LDL CHOLESTEROL (DIRECT MEASURE) - [facility] 78 12/26/2013 01:26 PM LDL CHOLESTEROL (DIRECT MEASURE) - [facility] 108 09/25/2013 11:22 AM Lab Results Component Value Date/Time ALT - [facility] 30 06/17/2023 01:33 PM ALT - [facility] 27 06/12/2020 12:58 PM Hemoglobin AIC Results: Lab Results Component Value Date/Time HEMOGLOBIN A1C - [facility] 6.2 (H) 06/17/2023 01:33 PM HEMOGLOBIN A1C - [facility] 6.2 (H) 12/04/2022 04:09 PM HEMOGLOBIN A1C - [facility] 6.8 (H) 08/25/2022 04:12 PM HEMOGLOBIN A1C - [facility] 8.2 (H) 06/12/2020 12:58 PM HEMOGLOBIN A1C - [facility] 8.5 (H) 07/19/2019 02:49 PM HEMOGLOBIN A1C - [facility] 6.1 (H) 04/07/2019 02:39 PM HEMOGLOBIN A1C POCT - [facility] 7.5 (H) 03/17/2021 02:40 PM documented in this encounter Plan of Treatment Upcoming Encounters Date Type Department Care Team (Latest Contact Info) Description 11/02/2023 11:00 AM EDT Office Visit Cardiology, [facility] [address] [place] [address] Sommer Mcqueen PA-C [address] [place] [address] 11/05/2023 11:00 AM EDT Hospital Encounter ENDO [facility], Endoscopy Room [facility] [address] [place] [phone] Cornell Gonzalez MD [address] [place] [address] 11/05/2023 11:00 AM EDT - 11/05/2023 11:30 AM EDT Surgery ENDO [facility], Endoscopy Room [facility] [address] [place] [phone] Cornell Gonzalez MD [address] [place] [address] COLONOSCOPY FLEXIBLE PROXIMAL DIAGNOSTIC 12/01/2023 12:40 PM EDT Office Visit General Internal Medicine [facility] [address] [facility] [place] [address] Claus Phelan MD [address] [facility] [address] 01/05/2024 1:30 PM EDT Office Visit Urology, [facility] [address] [place] [address] Gage Norris MD [address] [address] [place] [address] Scheduled Procedures Name Priority Associated Diagnoses Date/Ti [...] exists Depression Screening 05/14/2023 05/14/2022, 07/13/19 15 Colonoscopy 07/17/2023 07/17/2013, 07/17/2013 Colorectal Cancer Screening 07/17/2023 HbA1c 12/16/2023 06/17/2023, 11/21, 08/25/2022, Additional history exists Albumin/Creatinine Ratio 05/03/2024 023, 05/14/2022, 05/19/2021, Additional history exists Diabetic Foot Exam 06/02/2024 06/02/2023, 1 07/15/2021, 03/17/2021, Additional history exists GFR 06/17/2024 06/17/2023, 11/21, 05/26/2022, Additional history exists Lipid Panel 06/17/2028 06/17/2023, 04/24, 03/21/2021, Additional history exists DTaP,Tdap,and Td Vaccines (3 - Td or Tdap) 06/02/2033 06/02/2023, 12/22/2012 Hepatitis B Completed 12/26/2013, 07/2013, 06/26/2013 Zoster Vaccines Completed 05/04/2018, 02/02/2018 Pneumococcal Vaccine: Pediatrics (0 to 5 Years) and At-Risk Patients (6 to 64 Years) Completed 11/03/2021, 12/22/2012 Influenza Vaccine (FLU shot) Completed , 03/16/2022, 03/17/2021, Additional history exists LUNG CANCER SCREENING - USE SMARTSET 52659 Completed 05/14/2023, 05/14/2016 GARDASIL-HPV IMMUNIZATION SERIES Aged Out No longer eligible based on patient's age to complete this topic MENINGOCOCCAL (MENACTRA/MENVEO) Aged Out No longer eligible based on patient's age to complete this topic documented as of this encounter Medical Devices Not on filedocumented as of this encounter Visit Diagnoses Diagnosis Type 2 diabetes mellitus with proteinuria (HCC) Special screening for malignant neoplasms, colon documented in this encounter Care Teams Manager Print Relationship Specialty Start Date End Date Claus Phelan MD [address] [place] [address] PCP - General Internal Medicine 09/08/12 documented as of this encounter
--- OUTSIDE RECORDS SUMMARY | 2023-06-29 02:03 | External Medical Summary ---
Author Name Unknown Address Unknown Organization K01:[facility] - [address] [place] [address] Laboratory Report Ordering Provider Test Date Status ZHANE LANE 06/17/2023 13:33:11 Final Observation Date Value Abnormality Reference (Units ) Status PSA 06/17/2023 13:33:11 1.99 <4.10 (ng/ mL) Final Performing Location [facility] - [address] [place] [address]
--- OUTSIDE RECORDS SUMMARY | 2023-06-29 02:03 | External Medical Summary ---
Author Name Unknown Address Unknown Organization K01:[facility] [place] [address] [place] [address] Laboratory Report Ordering Provider Test Date Status ZHANE L[address] 06/17/2023 13:33:11 Final Observation Date Value Abnormality Reference (Units ) Status HbA1C 06/17/2023 13:33:11 6.2 Above high normal 4. 0-5.6 (%) Final The use of HbA1c to monitor glycemic status is based on normal hemoglobin and HbA composition. This test should not be used in patients with abnormal hemoglobin that affects the half life of the red blood cell or the in vivo glycation rates. Glucose, estimated average 06/17/2023 13:33:11 131 Above high normal <126 (mg/dL) Albin guadarrama Performing Location [facility] [address] [place] [address]
--- OUTSIDE RECORDS SUMMARY | 2023-06-29 02:03 | External Medical Summary ---
Author Name Unknown Address Unknown Organization K01:[facility] [address] [facility] [address] [place] [address] Laboratory Report Ordering Provider Test Date Status KRUPA LANETEIN 06/17/2023 13:33:11 Final Observation Date Value Abnormality Reference (Units ) Status Triglyceride 06/17/2023 13:33:11 37 <=174 ( mg/dL) Final Triglyceride Reference Range s (mg/dL):
<150 Acceptable
150-174 Borderline high
175-499 High
>=500 Very high Cholesterol 06/17/2023 13:33:11 104 <200 (mg /dL) Final Total Cholesterol Reference Ranges (mg/dL):
<200 Desirable
200-239 Borderline high
>=240 High HDL 06/17/2023 13:33:11 59 >39 (mg/dL ) Final HDL Cholesterol Reference Ra nges (mg/dL):
>=60 High (Desirable)
<50 Low (Undesirable) For Females
<40 Low (Undesirable) For Males NON-HDL CHOLESTEROL 06/17/2023 13:33:11 45 <=159 (mg/dL) Final Non-HDL Cholesterol Referenc e Range (mg/dL):
<100 Target level for high risk ASCVD patient
<130 Optimal for general population
130-159 Near optimal for general population
160-189 Borderline High
190-219 High
>=220 Very High LDL, (calculated) 06/17/2023 13:33:11 38 <= 129 (mg/dL) Final LDL Cholesterol Reference Ra nges (mg/dL):
<70 Target level for high risk ASCVD patient
<100 Optimal for general population
100-129 Near optimal for general population
130-159 Borderline high
160-189 High
>=190 Very high Performing Location [facility] [place] [address] [facility] [address]
--- OUTSIDE RECORDS SUMMARY | 2023-06-29 02:04 | External Medical Summary ---
Author Name Unknown Address Unknown Organization K09:[facility] [place] [address] Laboratory Report Ordering Provider Test Date Status ARIANAKANNAN 06/17/2023 13:33:11 Final Observation Date Value Abnormality Reference (Units ) Status SYNC LEUKOCYTES IN BLOOD BY AUTOMATED COUNT 06/17/2023 13:33:11 6.47 4.00-10.80 (K/uL) Final Segs 06/17/2023 13:33:11 68.1 40.0-75.0 (%) Final Lymphs % 06/17/2023 13:33:11 21.2 18.0-42.0 (%) Final Monos 06/17/2023 13:33:11 8.8 1.0-11.0 (%) Final Eosinophils 06/17/2023 13:33:11 1.7 0.0-6.0 (%) Final Basos 06/17/2023 13:33:11 0.2 0.0-2.0 (%) Final Absolute Segs 06/17/2023 13:33:11 4.41 1.80-7.70 (K/uL) Final Lymphs, absolute 06/17/2023 13:33:11 1.37 1.00-4.80 (K/ul) Final Monos, Abs 06/17/2023 13:33:11 0.57 0.00-1.10 (K/uL) Final Eos, Abs 06/17/2023 13:33:11 0.11 0.00-0.70 (K/uL) Final Basos, Abs 06/17/2023 13:33:11 0.01 0.00-0.20 (K/uL) Final Performing Location [facility] [place] [address]
--- OUTSIDE RECORDS SUMMARY | 2023-06-29 02:04 | External Medical Summary | Summary of Care ---
Author Name Unknown Organization [facility] Address [address] [facility] [address] [address] Phone [phone] Care Team Providers Care Actuarial Technician Name Role Phone Claus Sullivan MD Primary Care Provider + Reason for Visit * Reason Onset Date Comments Appointment 06/07/2023 colonoscopy Encounter Details Date Type Department Care Team (Late st Contact Info) Description 06/07/2023 Telephone General Internal Medicine [facility] [place] [address] [facility] [place] [address] Claus [facility] [address] [facility] ([facility]oscopy) Allergies Active Allergy Reactions Criticality Noted Date Comments Empagliflozin Other (Please comment) 10/26/2018 Caused extreme drowsiness and excessive urination and dehydration documented as of this encounter (statuses as of 06/14/2023) Medications Medication Sig Dispensed Refills Start Date [...] as of this encounter (statuses as of 06/14/2023) Active Problems Problem Noted Date Diagnosed Date [...] as of this encounter (statuses as of 06/14/2023) Resolved Problems Problem Noted Date Diagnosed Date [...] as of this encounter (statuses as of 06/14/2023) Immunizations Name Administration Dates Next Due COVID-19 mRNA, LNP-s, No Pre serve, 2-Dose Series ([employer]) 03/26/2021,08/07/2020,07/10/2020 COVID-19, LNP-s, No Preserve , Néstor-sucrose, Ages 12+ (Pfizer) 11/11/2021 Covid-19, Mrna, Lnp-s, Pf, B ivalent, 30 Mcg, IM, 12 yrs and above ([employer]) 03/16/2022 Hepatitis B, 20+ yrs 12/26/2013,07/24/2013,06/26 Pneumococcal Conjugate Vacci ne, 20-valent ([id number]) 11/03/2021 Pneumococcal Polysaccharide PPV23 (Pneumovax) 12/22/2012 Seasonal [...] encounter Miscellaneous Notes * Telephone Encounter - Keshia Pierce OSA - 06/14/2023 8:11 AM EST Letter sent 06/14 * Telephone Encounter - Keshia Pierce OSA - 06/11/2023 8:43 AM EST MyG sent 06/11 * Telephone Encounter - Keshia Pierce OSA - 06/08/2023 12:02 PM EST Called lmom 06/08 * Telephone Encounter - Georgi Fontenot OSA - 06/07/2023 2:59 PM EST Order placed 06/02, please advise on scheduling. * Telephone Encounter - Georgi Fontenot OSA - 06/07/2023 2:59 PM EST OUTPATIENT REFERRAL REQUEST COLONOSCOPY, GI REFERRAL OP Name: Alexx Bush Birthdate: 1965 Patient's Address: [address] [place] [address] Home: Work: Patient Preference: Referral ID: [id number] Referred To: COLONOSCOPY, GI REFERRAL OP Wafer Fab Operator: Provider Specialty: Gastroenterology Priority: Within 30 days (routine) Visit Coverage: [employer] [facility] Primary Payor: [employer] Appointment Info: Date: Time: Referral Type: Ancillary Services [] Expiration Date: Number of Visits Requested: 999 Associated Diagnosis: Screen for colon cancer (Z12.11) Problem/Desired Service from Wafer Fab Operator: July 2023 ALERT: Do not order for pediatric patients (18 years or younger). Cancel off screen and order PEDS GASTROENTEROLOGY CONSULT (Type: 1 visit only-Evaluate and Treat) The following Pt. Instructions are available: - Gastro Colonoscopy Prep Instructions [74502] - Gastro Colonoscopy Prep Instructions (Romanian Version) [04034] Go to the Pt. Instructions section within the Visit Navigator to access. Colonoscopy ASGE Guidelines: Average risk screening (begin at age 50, 10 year intervals) ADDITIONAL INFORMATION 1. Is the patient on Coumadin? No 2. Is the patient on Pradaxa? No Order Specific Questions: Referral Priority: Within 30 days (routine) Where should this appointment be scheduled? [facility] documented in this encounter Plan of Treatment Upcoming Encounters Date Type Department Care Team (Late st Contact Info) Description 11/02/2023 11:00 AM EDT Office Visit Cardiology, [facility] [address] [place] [address] Sommer Mcqueen PA-C [address] [place] [address] 12/01/2023 12:40 PM EDT Office Visit General Internal Medicine [facility] [place] [address] [place] [address] Claus Sullivan MD [address] [place] [address] 01/05/2024 1:30 PM EDT Office Visit Urology, [facility] [address] [place] [address] Gage Norris MD [address] [place] [address] Scheduled Procedures Name Priority Associated Diagnoses Date/Ti me COLONOSCOPY FLEXIBLE PROXIMA L DIAGNOSTIC Recall Special screening for malignant neoplasms, colon Health Maintenance Due Date Last Done Comments [...] Colorectal Cancer Screening 07/17/2023 GFR 12/05/2023 12/04/2022, 01/0 07/2022, 05/14/2022, Additional history exists Albumin/Creatinine Ratio 05/03/2024 023, 05/14/2022, 05/19/2021, Additional history exists Diabetic Foot Exam 06/02/2024 06/02/2023, 1 07/15/2021, 03/17/2021, Additional history exists Lipid Panel 05/14/2027 05/14/2022, 02/22, 12/08/2019, Additional history exists DTaP,Tdap,and Td Vaccines (3 - Td or Tdap) 06/02/2033 06/02/2023, 12/22/2012 Hepatitis B Completed 12/26/2013, 03/0 07/2013, 06/26/2013 Zoster Vaccines Completed 05/04/2018, 02/02/2018 Pneumococcal Vaccine: Pediatrics (0 to 5 Years) and At-Risk Patients (6 to 64 Years) Completed 11/03/2021, 12/22/2012 Influenza Vaccine (FLU shot) Completed , 03/16/2022, 03/17/2021, Additional history exists LUNG CANCER SCREENING - USE SMARTSET 84527 Completed 05/14/2023, 05/14/2016 GARDASIL-HPV IMMUNIZATION SERIES Aged Out No longer eligible based on patient's age to complete this topic MENINGOCOCCAL (MENACTRA/MENVEO) Aged Out No longer eligible based on patient's age to complete this topic documented as of this encounter Medical Devices Not on filedocumented as of this encounter Care Teams Actuarial Technician Relationship Specialty Start Date End Date Claus Sullivan MD [address] [place] [address] PCP - General Internal Medicine 09/08/12 documented as of this encounter
--- OUTSIDE RECORDS SUMMARY | 2023-06-29 02:04 | External Medical Summary ---
Author Name Unknown Address Unknown Organization K09:[facility] [place] [address] Laboratory Report Ordering Provider Test Date Status ZHANE LANE 06/17/2023 13:33:11 Final Observation Date Value Abnormality Reference (Units ) Status WBC, Total 06/17/2023 13:33:11 6.47 4.00-10.8 0 (K/uL) Final RBC 06/17/2023 13:33:11 4.06 4.50-5.25 (M/uL) Final Hemoglobin 06/17/2023 13:33:11 13.4 Below low normal 14 .0-16.8 (g/dL) Final HCT 06/17/2023 13:33:11 39.8 Below low normal 40. 0-48.4 (%) Final MCV 06/17/2023 13:33:11 98.0 82.0-99.5 (fL) Final MCH 06/17/2023 13:33:11 33.0 27.0-34.0 (pg) Final MCHC 06/17/2023 13:33:11 33.7 32.0-36.0 (g/dL) Final RDW 06/17/2023 13:33:11 13.1 11.5-15.5 (%) Final Platelets 06/17/2023 13:33:11 235 140-400 (K /uL) Final MPV 06/17/2023 13:33:11 11.1 6.6-11.1 ( fL) Final Performing Location [facility] [address]
--- OUTSIDE RECORDS SUMMARY | 2023-06-29 02:04 | External Medical Summary ---
Author Name Unknown Address Unknown Organization K09:LAB[facility]ATORY [facility] [address] - [address] [place] [address] Laboratory Report Ordering Provider Test Date Status ARIANAKANNAN 06/17/2023 13:33:11 Final Observation Date Value Abnormality Reference (Units ) Status BUN 06/17/2023 13:33:11 17 6-20 (mg/dL) Final Creatinine 06/17/2023 13:33:11 1.0 0.6-1.2 (mg/dL) Final Glomerular filtration rate/1.73 sq M.predicted [Volume Rate/Area] in Serum, Plasma or Blood by Creatinine-based formula (CKD-EPI) 06/17/2023 13:33:11 89 >=60 (mL/min) Final eGFR is calculated based on the CKD-EPI 2020 equation SODIUM 06/17/2023 13:33:11 140 135-146 (m mol/L) Final Potassium 06/17/2023 13:33:11 4.1 3.5-5.1 (m mol/L) Final Cl 06/17/2023 13:33:11 103 98-107 (mm ol/L) Final CO2 06/17/2023 13:33:11 26 22-32 (mmo l/L) Final Anion gap 06/17/2023 13:33:11 11 7-15 (mmol /L) Final Glucose 06/17/2023 13:33:11 73 70-120 (mg /dL) Final Albumin 06/17/2023 13:33:11 4.3 3.8-5.0 (g /dL) Final AST (Aspartate aminotransferase) 06/17/2023 13:33:11 23 10-50 (U/L) Final Alk Phos 06/17/2023 13:33:11 87 35-130 (U/ L) Final Bilirubin, Total 06/17/2023 13:33:11 1.2 <=1 .2 (mg/dL) Final Calcium 06/17/2023 13:33:11 9.6 8.4-10.2 ( mg/dL) Final Protein 06/17/2023 13:33:11 6.3 6.0-8.3 (g /dL) Final ALT (Alanine aminotransferase) 06/17/2023 13:33:11 30 10-50 (U/L) Final Performing Location LABORATORY [facility] [address] [place] [address]
--- OUTSIDE RECORDS SUMMARY | 2023-06-29 02:05 | External Medical Summary | Summary of Care ---
Author Name Unknown Organization [facility] Address [address] [facility] [address] Phone [phone] Care Team Providers Care Tribal Council Member Name Role Phone Claus Sullivan MD Primary Care Provider + Reason for Visit * Reason Onset Date Comments Appointment 06/07/2023 colonoscopy Encounter Details Date Type Department Care Team (Late st Contact Info) Description 06/07/2023 Telephone General Internal Medicine [facility] [place] 200 [facility] [place] [address] Claus Sullivan MD 200 [facility] [address] Appointment (colonoscopy) Allergies Active Allergy Reactions Criticality Noted Date Comments Empagliflozin Other (Please comment) 10/26/2018 Caused extreme drowsiness and excessive urination and dehydration documented as of this encounter (statuses as of 06/11/2023) Medications Medication Sig Dispensed Refills Start Date [...] as of this encounter (statuses as of 06/11/2023) Active Problems Problem Noted Date Diagnosed Date [...] as of this encounter (statuses as of 06/11/2023) Resolved Problems Problem Noted Date Diagnosed Date [...] as of this encounter (statuses as of 06/11/2023) Immunizations Name Administration Dates Next Due COVID-19 mRNA, LNP-s, No Pre serve, 2-Dose Series (Research Journalist) 03/26/2021,08/07/2020,07/10/2020 COVID-19, LNP-s, No Preserve , Néstor-sucrose, Ages 12+ (Pfizer) 11/11/2021 Covid-19, Mrna, Lnp-s, Pf, B ivalent, 30 Mcg, IM, 12 yrs and above (Research Journalist) 03/16/2022 Hepatitis B, 20+ yrs 12/26/2013,07/24/2013,06/26 Pneumococcal Conjugate Vacci ne, 20-valent ([id number]) 11/03/2021 Pneumococcal Polysaccharide PPV23 (Pneumovax) 12/22/2012 Seasonal [...] Name: Alexx Bush Birthdate: 1965 Patient's Address: [place] [address] [address] [address] Home: Work: Patient Preference: Referral ID: [id number] Referred To: COLONOSCOPY, GI REFERRAL OP City Carrier: Provider Specialty: Gastroenterology Priority: Within 30 days (routine) Visit Coverage: [facility] Primary Payor: [facility] Appointment Info: Date: Time: Referral Type: Ancillary Services [] Expiration Date: Number of Visits Requested: 999 Associated Diagnosis: Screen for colon cancer (Z12.11) Problem/Desired Service from City Carrier: July 2023 ALERT: Do not order for pediatric patients (18 years or younger). Cancel off screen and order PEDS GASTROENTEROLOGY CONSULT (Type: 1 visit only-Evaluate and Treat) The following Pt. Instructions are available: - Gastro Colonoscopy Prep Instructions [[id number]] - Gastro Colonoscopy Prep Instructions (Ukrainian Version) [[id number]] Go to the Pt. Instructions section within [...] 11/02/2023 11:00 AM EDT Office Visit Cardiology, [facility] [place] [address] Sommer Mcqueen PA-C 132 [facility] [place] [address] 12/01/2023 12:40 PM EDT Office Visit General Internal Medicine Lucio Rincon [place] [address] [place] [address] Claus Sullivan MD [address] [place] [address] 01/05/2024 1:30 PM EDT Office Visit Urology, [facility] [address] [place] [address] Gage Norris MD [address] [place] [...] 06/02/2033 06/02/2023, 12/22/2012 Hepatitis B Completed 12/26/2013, 0307/2013, 06/26/2013 Zoster Vaccines Completed 05/04/2018, 02/02/2018 Pneumococcal Vaccine: Pediatrics (0 to 5 Years) and At-Risk Patients (6 to 64 Years) Completed 11/03/2021, 12/22/2012 Influenza Vaccine (FLU shot) Completed , 03/16/2022, 03/17/2021, Additional history exists LUNG CANCER SCREENING - USE SMARTSET 61147 Completed 05/14/2023, 05/14/2016 GARDASIL-HPV IMMUNIZATION SERIES Aged Out No longer eligible based on patient's age to complete this topic MENINGOCOCCAL (MENACTRA/MENVEO) Aged Out No longer eligible based on patient's age to complete this topic documented as of this encounter Medical Devices Not on filedocumented as of this encounter Care Teams Tribal Council Member Relationship Specialty Start Date End Date Claus Sullivan MD 200 [facility] [place] [address] PCP - General Internal Medicine 09/08/12 documented as of this encounter
--- OUTSIDE RECORDS SUMMARY | 2023-06-29 02:05 | External Medical Summary | Summary of Care ---
Author Name Unknown Organization [facility] Address [address] [facility] [place] [address] Phone [phone] Care Team Providers Care Delivery Analyst Name Role Phone Claus Sullivan MD Primary Care Provider + Encounter Details Date Type Department Care Team (Late st Contact Info) Description 06/08/2023 Orders Only PATIENT PORTAL DO NOT DELETE THIS DEPT USED BY [place] [id number] Allergies Active Allergy Reactions Criticality Noted Date Comments Empagliflozin Other (Please comment) 10/26/2018 Caused extreme drowsiness and excessive urination and dehydration documented as of this encounter (statuses as of 06/08/2023) Medications Medication Sig Dispensed Refills Start Date [...] SoloStar)Indication s:Type 2 diabetes mellitus with proteinuria Inject 10 Units under the skin every night at bedtime. 6 mL 2 09/24/2022 Active Additional Information Patient taking differently:10 Units SubcutaneousPRN, Reported on 06/02/2023 Trulicity 3 MG/0.5ML Subcutaneous Solution Pen-injector (Dulaglutide)Indica tions:Type 2 diabetes mellitus with proteinuria Inject 3 mg under the skin once a week. 2 mL 3 02/18/2023 Active buPROPion HCl ER (SR) 150 MG Oral Tablet Extended Release 12 Hour (Wellbutrin SR)Indications:Depr ession Take 1 Tablet by mouth in the morning and 1 Tablet before bedtime. 180 Tablet 2 05/18/2023 Active documented as of this encounter (statuses as of 06/08/2023) Active Problems Problem Noted Date Diagnosed Date [...] as of this encounter (statuses as of 06/08/2023) Resolved Problems Problem Noted Date Diagnosed Date Resolved Date Major depressive disorder with single episode 05/26/1911/16/2022 Cellulitis of left lower extremity 05/26/2022 11/16/2022 [...] as of this encounter (statuses as of 06/08/2023) Immunizations Name Administration Dates Next Due COVID-19 mRNA, LNP-s, No Pre serve, 2-Dose Series ([employer]) 03/26/2021,08/07/2020,07/10/2020 COVID-19, LNP-s, No Preserve , Néstor-sucrose, Ages 12+ (Pfizer) 11/11/2021 Covid-19, Mrna, Lnp-s, Pf, B ivalent, 30 Mcg, IM, 12 yrs and above (Pfizer) 03/16/2022 Hepatitis B, 20+ yrs 12/26/2013,07/24/2013,06/26 Pneumococcal Conjugate Vacci ne, 20-valent ([id number]) 11/03/2021 Pneumococcal Polysaccharide PPV23 (Pneumovax) 12/22/2012 Seasonal [...] 11/02/2023 11:00 AM EDT Office Visit Cardiology, [facility] [address] [facility] [place] [address] Sommer Mcqueen PA-C [address] [place] [address] 12/01/2023 12:40 PM EDT Office Visit General Internal Medicine [facility] 200 [facility] [address] Claus Sullivan MD 200 [facility] [place] [address] 01/05/2024 1:30 PM EDT Office Visit Urology, [facility] 132 [facility] [place] [address] Gage Norris MD [address] [facility] [address] [place] [address] Scheduled Procedures Name Priority Associated Diagnoses Date/Ti [...] exists LUNG CANCER SCREENING - USE SMARTSET 86577 Completed 05/14/2023, 05/14/2016 GARDASIL-HPV IMMUNIZATION SERIES Aged Out No longer eligible based on patient's age to complete this topic MENINGOCOCCAL (MENACTRA/MENVEO) Aged Out No longer eligible based on patient's age to complete this topic documented as of this encounter Medical Devices Not on filedocumented as of this encounter Care Teams Delivery Analyst Relationship Specialty Start Date End Date Claus Sullivan MD [address] [place] [address] PCP - General Internal Medicine 09/08/12 documented as of this encounter
--- OUTSIDE RECORDS SUMMARY | 2023-06-29 02:06 | External Medical Summary | Summary of Care ---
Author Name Unknown Organization [facility] Address [address] [facility] [address] Phone [phone] Care Team Providers Care Park Keeper Name Role Phone Claus Sullivan MD Primary Care Provider + Reason for Visit * Reason Onset Date Comments Appointment 06/07/2023 colonoscopy Encounter Details Date Type Department Care Team (Late st Contact Info) Description 06/07/2023 Telephone General Internal Medicine [facility] [place] [address] [facility] [place] [address] Claus Sullivan MD 200 [facility] [address] Appointment (colonoscopy) Allergies Active Allergy Reactions Criticality Noted Date Comments Empagliflozin Other (Please comment) 10/26/2018 Caused extreme drowsiness and excessive urination and dehydration documented as of this encounter (statuses as of 06/07/2023) Medications Medication Sig Dispensed Refills Start Date [...] as of this encounter (statuses as of 06/07/2023) Active Problems Problem Noted Date Diagnosed Date [...] as of this encounter (statuses as of 06/07/2023) Resolved Problems Problem Noted Date Diagnosed Date [...] as of this encounter (statuses as of 06/07/2023) Immunizations Name Administration Dates Next Due COVID-19 mRNA, LNP-s, No Pre serve, 2-Dose Series ([employer]) 03/26/2021,08/07/2020,07/10/2020 COVID-19, LNP-s, No Preserve , Néstor-sucrose, Ages 12+ (Pfizer) 11/11/2021 Covid-19, Mrna, Lnp-s, Pf, B ivalent, 30 Mcg, IM, 12 yrs and above (Polyheal) 03/16/2022 Hepatitis B, 20+ yrs 12/26/2013,07/24/2013,06/26 Pneumococcal Conjugate Vacci ne, 20-valent ([id number]) 11/03/2021 Pneumococcal Polysaccharide PPV23 (Pneumovax) 12/22/2012 Seasonal [...] encounter Miscellaneous Notes * Telephone Encounter - Georgi Fontenot OSA - 06/07/2023 2:59 PM EST Order placed 06/02, please advise on scheduling. * Telephone Encounter - Georgi Fontenot OSA - 06/07/2023 2:59 PM EST OUTPATIENT REFERRAL REQUEST COLONOSCOPY, GI REFERRAL OP Name: Alexx Bush Birthdate: 1965 Patient's Address: [address] [address] Home: Work: Patient Preference: Referral ID: [id number] Referred To: COLONOSCOPY, GI REFERRAL OP Veneer Patcher: Provider Specialty: Gastroenterology Priority: Within 30 days (routine) Visit Coverage: [facility] [place] Primary Payor: [facility] Appointment Info: Date: Time: Referral Type: Ancillary Services [] Expiration Date: Number of Visits Requested: 999 Associated Diagnosis: Screen for colon cancer (Z12.11) Problem/Desired Service from Veneer Patcher: July 2023 ALERT: Do not order for pediatric patients (18 years or younger). Cancel off screen and order PEDS GASTROENTEROLOGY CONSULT (Type: 1 visit only-Evaluate and Treat) The following Pt. Instructions are available: - Gastro Colonoscopy Prep Instructions [[id number]] - Gastro Colonoscopy Prep Instructions (Azeri Version) [[id number]] Go to the Pt. Instructions section within the Visit Navigator to access. Colonoscopy ASGE Guidelines: Average risk screening (begin at age 50, 10 year intervals) ADDITIONAL INFORMATION 1. Is the patient on Coumadin? No 2. Is the patient on Pradaxa? No Order Specific Questions: Referral Priority: Within 30 days (routine) Where should this appointment be scheduled? [facility] documented in this encounter Plan of Treatment Upcoming Encounters Date Type Department Care Team (Late st Contact Info) Description 11/02/2023 11:00 AM EDT Office Visit Cardiology, [facility] 132 [facility] [place] [address] Sommer Mcqueen PA-C 132 [place] [address] 12/01/2023 12:40 PM EDT Office Visit General Internal Medicine [facility] 200 [place] [address] Claus Sullivan MD 200 [place] [address] 01/05/2024 1:30 PM EDT Office Visit Urology, [facility] 132 [facility] [place] [address] Gage Norris MD 27 [facility] [address] [place] [address] Scheduled Procedures Name Priority Associated Diagnoses Date/Ti [...] exists LUNG CANCER SCREENING - USE SMARTSET 25352 Completed 05/14/2023, 05/14/2016 GARDASIL-HPV IMMUNIZATION SERIES Aged Out No longer eligible based on patient's age to complete this topic MENINGOCOCCAL (MENACTRA/MENVEO) Aged Out No longer eligible based on patient's age to complete this topic documented as of this encounter Medical Devices Not on filedocumented as of this encounter Care Teams Park Keeper Relationship Specialty Start Date End Date Claus Sullivan MD [address] [place] [address] PCP - General Internal Medicine 09/08/12 documented as of this encounter
--- OUTSIDE RECORDS SUMMARY | 2023-06-29 02:06 | External Medical Summary | Summary of Care ---
Author Name Unknown Organization [facility] Address [address] [facility] [address] Phone [phone] Care Team Providers Care Aircraft Instrument Mechanic Name Role Phone Claus Sullivan MD Primary Care Provider + Reason for Visit * Reason Onset Date Comments Appointment 06/07/2023 colonoscopy Encounter Details Date Type Department Care Team (Late st Contact Info) Description 06/07/2023 Telephone General Internal Medicine [facility] [place] 200 [facility] [place] [address] Claus Sullivan MD [facility] [address] Appointment (colonoscopy) Allergies Active Allergy Reactions Criticality [...] mRNA, LNP-s, No Pre serve, 2-Dose Series ([employer]) 03/26/2021,08/07/2020,07/10/2020 COVID-19, LNP-s, No Preserve , Néstor-sucrose, Ages 12+ (Pfizer) 11/11/2021 Covid-19, Mrna, Lnp-s, Pf, B ivalent, 30 Mcg, IM, 12 yrs and above ([employer]) 03/16/2022 Hepatitis B, 20+ yrs 12/26/2013,07/24/2013,06/26 Pneumococcal Conjugate Vacci ne, 20-valent ([id number]) 11/03/2021 Pneumococcal Polysaccharide PPV23 (Pneumovax) 12/22/2012 Seasonal [...] Name: Alexx Bush Birthdate: 1965 Patient's Address: [place] [address] [address] [address] Home: Work: Patient Preference: Referral ID: [id number] Referred To: COLONOSCOPY, GI REFERRAL OP Optical Goods Worker: Provider Specialty: Gastroenterology Priority: Within 30 days (routine) Visit Coverage: [facility] PLAN [place] Primary Payor: [facility] Appointment Info: Date: Time: Referral Type: Ancillary Services [] Expiration Date: Number of Visits Requested: 999 Associated Diagnosis: Screen for colon cancer (Z12.11) Problem/Desired Service from Optical Goods Worker: July 2023 ALERT: Do not order for pediatric patients (18 years or younger). Cancel off screen and order PEDS GASTROENTEROLOGY CONSULT (Type: 1 visit only-Evaluate and Treat) The following Pt. Instructions are available: - Gastro Colonoscopy Prep Instructions [[id number]] - Gastro Colonoscopy Prep Instructions (Kazakh Version) [[id number]] Go to the Pt. Instructions section within [...] 11/02/2023 11:00 AM EDT Office Visit Cardiology, [facility] [place] [address] Sommer Mcqueen PA-C 132 [place] [place] [address] 12/01/2023 12:40 PM EDT Office Visit General Internal Medicine [facility] 200 [facility] [address] Claus Sullivan MD 200 [place] [address] 01/05/2024 1:30 PM EDT Office Visit Urology, [facility] [address] [facility] [address] Gage Norris MD [facility] [address] [place] [address] Scheduled Procedures Name Priority Associated Diagnoses Date/Ti [...] Colorectal Cancer Screening 07/17/2023 GFR 12/05/2023 12/04/2022, 0 07/2022, 05/14/2022, Additional history exists Albumin/Creatinine Ratio [...] exists LUNG CANCER SCREENING - USE SMARTSET 59041 Completed 05/14/2023, 05/14/2016 GARDASIL-HPV IMMUNIZATION SERIES Aged Out No longer eligible based on patient's age to complete this topic MENINGOCOCCAL (MENACTRA/MENVEO) Aged Out No longer eligible based on patient's age to complete this topic documented as of this encounter Medical Devices Not on filedocumented as of this encounter Care Teams Aircraft Instrument Mechanic Relationship Specialty Start Date End Date Claus Sullivan MD [address] [place] [address] PCP - General Internal Medicine 09/08/12 documented as of this encounter
--- OUTSIDE RECORDS SUMMARY | 2023-06-29 02:07 | External Medical Summary | Summary of Care ---
Author Name Unknown Organization [facility] Address [address] [place] [address] Phone [phone] Care Team Providers Care Computer Architect Name Role Phone Claus Sullivan MD Primary Care Provider + Reason for Referral * Precert (Within 10 days (routine)) - Pending Review Specialty Diagnoses / Procedures Referred By Contac t Referred To Contact Radiology Diagnoses Former smoker Solitary lung nodule Procedures CT CHEST WO CONTRAST Radha Bray CRNP [address] [place] [address] Referral ID Status Reason Start Date Expiration Date V isits Requested Visits Authorized [id number] Pending Review 11/12/2023 999 999 Encounter Details Date Type Department Care Team (Late st Contact Info) Description 06/04/2023 Orders Only STAIR LUNG NODULE [address] [place] [address] Radha Bray CRNP [address] [place] [address] Solitary lung nodule*; Former smoker Allergies Active Allergy Reactions Criticality Noted Date Comments Empagliflozin Other (Please comment) 10/26/2018 Caused extreme drowsiness and excessive urination and dehydration documented as of this encounter (statuses as of 06/04/2023) Medications Medication Sig Dispensed Refills Start Date [...] as of this encounter (statuses as of 06/04/2023) Active Problems Problem Noted Date Diagnosed Date [...] as of this encounter (statuses as of 06/04/2023) Resolved Problems Problem Noted Date Diagnosed Date [...] as of this encounter (statuses as of 06/04/2023) Immunizations Name Administration Dates Next Due COVID-19 mRNA, LNP-s, No Pre serve, 2-Dose Series (Tracelytics) 03/26/2021,08/07/2020,07/10/2020 COVID-19, LNP-s, No Preserve , Néstor-sucrose, Ages 12+ (Pfizer) 11/11/2021 Covid-19, Mrna, Lnp-s, Pf, B ivalent, 30 Mcg, IM, 12 yrs and above (Tracelytics) 03/16/2022 Hepatitis B, 20+ yrs 12/26/2013,07/24/2013,06/26 Pneumococcal Conjugate Vacci ne, 20-valent ([id number]) 11/03/2021 Pneumococcal Polysaccharide PPV23 (Pneumovax) 12/22/2012 Seasonal [...] 11/02/2023 11:00 AM EDT Office Visit Cardiology, [facility] [address] [place] [address] Sommer Mcqueen PA-C [address] [place] [address] 12/01/2023 12:40 PM EDT Office Visit General Internal Medicine [place]io Rincon [place] [address] [place] [address] Claus Sullivan MD [address] [place] [address] 01/05/2024 1:30 PM EDT Office Visit Urology, [facility] 132 [facility] [place] [address] Gage Norris MD 27 [facility] [place] [address] [place] [address] Scheduled Orders Name Type Priority Associated Diagnoses Orde r Schedule CT CHEST WO CONTRAST Medical Imaging Routine Former smoker Solitary lung nodule Expected: 11/12/2023, Expires: 07/05/2024 Scheduled Procedures Name Priority Associated Diagnoses Date/Ti [...] Completed , 03/16/2022, 03/17/2021, Additional history exists GARDASIL-HPV IMMUNIZATION SERIES Aged Out No longer eligible based on patient's age to complete this topic MENINGOCOCCAL (MENACTRA/MENVEO) Aged Out No longer eligible based on patient's age to complete this topic documented as of this encounter Medical Devices Not on filedocumented as of this encounter Visit Diagnoses Diagnosis Solitary lung nodule- Primary Solitary pulmonary nodule Former smoker Personal history of tobacco use, presenting hazards to health documented in this encounter Care Teams Computer Architect Relationship Specialty Start Date End Date Claus Sullivan MD [address] [place] [address] PCP - General Internal Medicine 09/08/12 documented as of this encounter
--- OUTSIDE RECORDS SUMMARY | 2023-06-29 02:07 | External Medical Summary | Summary of Care ---
Author Name Unknown Organization [facility] Address [address] [place] [address] Phone [phone] Care Team Providers Care Potato Seed Cutter Name Role Phone Claus Sullivan MD Primary Care Provider + Reason for Visit * Reason Onset Date Comments STAIR Lung Nodule 06/03/2023 Encounter Details Date Type Department Care Team (Late st Contact Info) Description 06/03/2023 Telephone STAIR LUNG NODULE [address] [place], [place] [id number] Program, Stair [address] [place] [address] STAIR Lung Nodule Allergies Active Allergy Reactions Criticality Noted Date [...] mRNA, LNP-s, No Pre serve, 2-Dose Series (Pfizer) 03/26/2021,08/07/2020,07/10/2020 COVID-19, LNP-s, No Preserve , Néstor-sucrose, Ages 12+ (Pfizer) 11/11/2021 Covid-19, Mrna, Lnp-s, Pf, B ivalent, 30 Mcg, IM, 12 yrs and above (Pfizer) 03/16/2022 Hepatitis B, 20+ yrs 12/26/2013,07/24/2013,06/26 Pneumococcal Conjugate Vacci ne, 20-valent ([id number]) 11/03/2021 Pneumococcal Polysaccharide PPV23 (Pneumovax) 12/22/2012 Seasonal [...] Years Used Date Smoking Tobacco: Former Cigarettes 0.5 20 Q uit: 05/24/2010 Smokeless Tobacco: Never Alcohol Use Standard [...] encounter Miscellaneous Notes * Telephone Encounter - Erica Arambula LPN - 06/04/2023 9:57 AM EST Patient managed in STAIR Program for Pulmonary Nodule - banner added * Telephone Encounter - Dorie Anna LPN - 06/03/2023 9:04 AM EST Left message for return call to enroll in STAIR documented in this encounter Plan of Treatment Upcoming Encounters Date Type Department Care Team (Late st Contact Info) Description 11/02/2023 11:00 AM EDT Office Visit Cardiology, [facility] [address] [place] [address] Sommer Mcqueen PA-C 132 [place] [address] 12/01/2023 12:40 PM EDT Office Visit General Internal Medicine [facility] [place] [address] [place] [address] Claus Sullivan MD [address] [place] [address] 01/05/2024 1:30 PM EDT Office Visit Urology, [facility] [address] [place] [address] Gage Norris MD [address] [facility] [place] [address] [place] [address] Scheduled Procedures Name Priority Associated Diagnoses Date/Ti [...] filedocumented as of this encounter Care Teams Potato Seed Cutter Relationship Specialty Start Date End Date Claus Sullivan MD 200 [place] [address] PCP - General Internal Medicine 09/08/12 documented as of this encounter
--- OUTSIDE RECORDS SUMMARY | 2023-06-29 02:08 | External Medical Summary | Summary of Care ---
Author Name Unknown Organization [facility] Address [address] [place] [address] Phone [phone] Care Team Providers Care Cross Cut Saw Operator Name Role Phone Claus Sullivan MD Primary Care Provider + Reason for Visit * Reason Onset Date Comments STAIR Lung Nodule 06/03/2023 Encounter Details Date Type Department Care Team (Late st Contact Info) Description 06/03/2023 Telephone STAIR LUNG NODULE [address], [place] [id number] Program, Stair [address] [place] [address] STAIR Lung Nodule Allergies Active Allergy Reactions Criticality Noted Date Comments Empagliflozin Other (Please comment) 10/26/2018 Caused extreme drowsiness and excessive urination and dehydration documented as of this encounter (statuses as of 06/03/2023) Medications Medication Sig Dispensed Refills Start Date [...] as of this encounter (statuses as of 06/03/2023) Active Problems Problem Noted Date Diagnosed Date [...] as of this encounter (statuses as of 06/03/2023) Resolved Problems Problem Noted Date Diagnosed Date [...] as of this encounter (statuses as of 06/03/2023) Immunizations Name Administration Dates Next Due COVID-19 mRNA, LNP-s, No Pre serve, 2-Dose Series (Pfizer) 03/26/2021,08/07/2020,07/10/2020 COVID-19, LNP-s, No Preserve , Néstor-sucrose, Ages 12+ (Pfizer) 11/11/2021 Covid-19, Mrna, Lnp-s, Pf, B ivalent, 30 Mcg, IM, 12 yrs and above (Pfizer) 03/16/2022 Hepatitis B, 20+ yrs 12/26/2013,07/24/2013,06/26 Pneumococcal Conjugate Vacci ne, 20-valent ([id number]) 11/03/2021 Pneumococcal Polysaccharide PPV23 (Pneumovax) 12/22/2012 Seasonal [...] encounter Miscellaneous Notes * Telephone Encounter - Dorie Anna LPN - 06/03/2023 9:04 AM EST Left message for return call to enroll in STAIR documented in this encounter Plan of Treatment Upcoming Encounters Date Type Department Care Team (Late st Contact Info) Description 11/02/2023 11:00 AM EDT Office Visit Cardiology, [facility] [address] [facility] [place] [address] Sommer Mcqueen PA-C [address] [facility] [place] [address] 12/01/2023 12:40 PM EDT Office Visit General Internal Medicine [facility] [address] [facility] [place] [address] Claus Sullivan MD [address] [facility] [place] [address] 01/05/2024 1:30 PM EDT Office Visit Urology, [facility] [address] [facility] [place] [address] Gage Norris MD [address] [facility] [address] [place] [address] Scheduled Procedures Name Priority Associated Diagnoses Date/Ti [...] filedocumented as of this encounter Care Teams Cross Cut Saw Operator Relationship Specialty Start Date End Date Claus Sullivan MD [address] [facility] [place] [address] PCP - General Internal Medicine 09/08/12 documented as of this encounter
--- OUTSIDE RECORDS SUMMARY | 2023-06-29 02:09 | External Medical Summary | Summary of Care ---
Author Name Unknown Organization [facility] Address [address] [facility] [address] Phone [phone] Care Team Providers Care [place] Name Role Phone Claus Sullivan MD Primary Care Provider + Reason for Referral * Evaluate & Treat - Unlimited Visits (Within 10 days (routine)) - Authorized Specialty Diagnoses / Procedures Referred By Scott plata Referred To Contact Pulmonary Diseases / Pulmonary Diagnoses Lung nodule Claus Sullivan MD [address] [place] [address] Referral ID Status Reason Start Date Expiration Date Visits Requested Visits Authorized [id number] Authorized Specialty Services Required 06/02/[phone] Question Answer Referral Priority Within 10 Days (Routine) Primary Reason for Referral? Lung Nodule/Mass * Ancillary Services (Within 30 days (routine)) - Authorized Specialty Diagnoses / Procedures Referred By Scott plata Referred To Contact Gastroenterology Diagnoses Screen for colon cancer Claus Sullivan MD [address] [place] [address] Referral ID Status Reason Start Date Expiration Date Visits Requested Visits Authorized [id number] Authorized Ancillary Services Required 06/02/[phone] Question Answer Referral Priority Within 30 days (routine) Where should this appointment be scheduled? [facility] July 2023 ALERT: Do not order for pediatric patients (18 years or younger). Cancel off screen and order PEDS GASTROENTEROLOGY CONSULT (Type: 1 visit only-Evaluate and Treat) The following Pt. Instructions are available: - Gastro Colonoscopy Prep Instructions [[id number]] - Gastro Colonoscopy Prep Instructions (Malaysian Version) [[id number]] Go to the Pt. Instructions section within the Visit Navigator to access. Colonoscopy ASGE Guidelines: Average risk screening (begin at age 50, 10 year intervals) ADDITIONAL INFORMATION 1. Is the patient on Coumadin? No 2. Is the patient on Pradaxa? No Reason for Visit * Reason Onset Date Comments Follow Up 6mo return Immunizations 06/02/2023 Encounter Details Date Type Department Care Team (Late st Contact Info) Description 06/02/2023 12:40 PM EST Office Visit General Internal Medicine [facility] [place] [address] [facility] [place] [address] Claus Sullivan [facility] [address] [facility] [place] [address] Type 2 diabetes mellitus with proteinuria *; Left bundle-branch block, unspecified; Type 2 diabetes mellitus with hemoglobin A1c goal of less than 7.0% ([facility]); BPH with obstruction/lower urinary tract symptoms; Gastro-esophageal reflux disease without esophagitis; Current mild episode of major depressive disorder without prior episode ([facility]); Fatty liver; DM type 2 nursing care encounter ([facility]); Essential (primary) hypertension; Need for prophylactic vaccination with tetanus-diphtheria (Td); Screen for colon cancer; Lung nodule Allergies Active Allergy Reactions Criticality Noted Date Comments Empagliflozin Other (Please comment) 10/26/2018 Caused extreme drowsiness and excessive urination and dehydration documented as of this encounter (statuses as of 06/02/2023) Medications Medication Sig Dispensed Refills Start Date End Date Status ONETOUCH ULTRASOFT LANCETS MISCIndications:DM type 2, goal A1c below 7 Use up to four times a day as directed 1 Box 11 09/09/2012 Active aspirin enteric coated 81 MG TBEC Take 1 Tablet by mouth in the morning. 100 Tab 3 03/03/2016 Active Blood Glucose Monitoring Suppl ([employer] ULTRA SYSTEM) w/Device KITIndications:Type 2 diabetes mellitus with hemoglobin A1c goal of less than 7.0% ([facility]) Use to check blood sugar 2 times [...] as of this encounter (statuses as of 06/02/2023) Active Problems Problem Noted Date Diagnosed Date [...] as of this encounter (statuses as of 06/02/2023) Resolved Problems Problem Noted Date Diagnosed Date [...] as of this encounter (statuses as of 06/02/2023) Immunizations Name Administration Dates Next Due COVID-19 mRNA, LNP-s, No Pre serve, 2-Dose Series ([employer]) 03/26/2021,08/07/2020,07/10/2020 COVID-19, LNP-s, No Preserve , Néstor-sucrose, Ages 12+ (Pfizer) 11/11/2021 Covid-19, Mrna, Lnp-s, Pf, B ivalent, 30 Mcg, IM, 12 yrs and above ([employer]) 03/16/2022 Hepatitis B, 20+ yrs 12/26/2013,07/24/2013,06/26 Pneumococcal Conjugate Vacci ne, 20-valent ([id number]) 11/03/2021 Pneumococcal Polysaccharide PPV23 (Pneumovax) 12/22/2012 Seasonal [...] on file documented as of this encounter Last Filed Vital Signs Vital Sign Reading Time Taken Comments Blood Pressure 138/88 06/02/2023 12:25 PM EST Pulse 77 06/02/2023 12:25 PM EST Temperature 36.7 C (98 F) 06/02/2023 12:25 PM EST Respiratory Rate - - Oxygen Saturation 96% 06/02/2023 12:25 PM EST Inhaled Oxygen Concentration - - Weight 111 kg (244 lb 12.8 oz) 06/02/2023 12:25 PM EST Height 180.3 cm (5' 11") 06/02/2023 12:25 PM EST Body Mass Index 34.14 06/02/2023 12:25 PM EST documented in this encounter Patient Instructions * Patient Instructions* Kamilah Mendez LPN - 06/02/2023 12:25 PM EST Diabetes: Keeping Feet Healthy Inspect your feet every day for signs of a problem. Diabetes can damage nerves in your feet and cause neuropathy. This condition makes it hard for you to feel injuries or sore spots. Diabetes can also change blood flow, making it harder for small problems, like a blister, to heal properly. In fact, minor injuries can quickly become serious infections that send you to the hospital. Practice self-care to protect your feet and keep them healthy. Take Special Care Inspect your feet daily for problems such as redness, blisters, cracks, dry skin, or numbness. Use a mirror to see the bottoms of your feet. Or, ask for help. Manage your diabetes. Monitor and control your blood sugar. Take all your medications as prescribed. Avoid walking barefoot, even indoors. Wash your feet with warm water and mild soap. Dry well, especially between toes. Dont treat corns or calluses yourself. Talk to your doctor or associate software developer (a doctor who specializes in foot care) if you need assistance trimming your toenails. Use moisturizing cream or lotion if you have dry skin, but dont use it between toes. Dont use heating pads on your feet. If you have neuropathy, you could get a burn and not feel it. Stop smoking. Smoking restricts blood flow and can make it harder for wounds to heal. Have Regular Checkups Foot problems can develop quickly. So be sure to follow your healthcare teams schedule for regular checkups. During office visits, take off your shoes and socks as soon as you get in the exam room. Ask your healthcare provider to examine your feet for problems. This will make it easier to find and treat small skin irritations before they get worse. Regular checkups can also help keep track of the blood flow and feeling in your feet. If you have neuropathy, you may need to have checkups more often. Wear Proper Footwear Wearing proper footwear is very important. If areas of your feet have been damaged by too much pressure, your healthcare provider may recommend changing your footwear. In some cases, avoiding high heels or tight work boots may be all thats needed. Or, your healthcare provider may recommend special shoes or custom inserts. These help protect your feet and keep existing irritations from getting worse. If you need special footwear, ask your healthcare provider if you qualify for [employer] diabetic shoe program. Make Sure Shoes and Socks Fit Any pair of shoes--new or old--should feel comfortable as soon as you put them on. There shouldnt be any rubbing when you walk. Wear the right shoe for any activity. For instance, a running shoe is designed to keep your feet injury-free while jogging. Buy shoes at the end of the day, when your feet are larger. Make sure they provide support without feeling too loose. Make sure your socks fit, too. Wear soft, seamless, well-padded socks for activity. Cotton or microfiber socks are best to help to absorb sweat. To protect your feet, avoid shoes that are open-toed or open-heeled. If you have questions about what kinds of shoes and socks are best, talk to your healthcare team. Get Regular Exercise Regular exercise improves blood flow in your feet. It also increases foot strength and flexibility.Gentle exercises, like walking or riding a stationary bicycle, are best. You can also do special foot exercises. Just be sure to talk with your healthcare provider before starting any exercise program. Also mention if any exercise causes pain, redness, or other signs of foot problems. Note: If you have any kind of break in the skin of your foot or ankle, keep the area clean. Then call your doctor--especially if the area doesnt appear to be healing. [id number] [employer], [address] [place] [address]. All rights reserved. This information is not intended as a substitute for professional medical care. Always follow your healthcare professional's instructions. ~~PATIENT INSTRUCTIONS FOR Td VACCINE~~ Possible side effects of Td vaccine, (tetanus shot), are usually mild and can include: 1. Soreness or redness at injection site 2. Low grade fever 3. Body aches You may use a fever / pain reducing medication as needed for these symptoms. LET YOUR DOCTOR KNOW IMMEDIATELY IF YOU HAVE DIFFICULTY BREATHING OR SWALLOWING, EXPERIENCE ITCHINGOF FEET OR HANDS, HAVE SWELLING OF EYES, FACE OR INSIDE OF NOSE. documented in this encounter Progress Notes * Claus Sullivan MD - 06/02/2023 12:45 PM EST Chief Complaint Patient presents with Follow Up 6mo return Immunizations SUBJECTIVE: Alexx Bush is a 57 year old male with PMH as below who presents for follow up of DM, depression, htn lipids. No cp, sob, peters, feels good, weight is up, admits to diet indiscretion with holidays, plans to improve. No n/v/d,. Mood is good. Keeps active at work, walking more. Fbs 120's, no lows. Urinating ok, sees cardiology Patient Active Problem List Diagnosis Code Type 2 diabetes mellitus with hemoglobin A1c goal of less than 7.0% ([facility]) E11.9 Ascending aortic aneurysm ([facility]) I71.21 Type 2 diabetes mellitus with proteinuria E11.29, R80.9 Mixed hyperlipidemia E78.2 Current mild episode of major depressive disorder without prior episode ([facility]) F32.0 History of DVT (deep vein thrombosis) Z86.718 History of giardiasis Z86.19 Class 2 severe obesity due to excess calories with serious comorbidity in adult ([facility]) E66.01 Gastroparesis K31.84 SVT (supraventricular tachycardia) I47.10 Fatty liver K76.0 Gastro-esophageal reflux disease without esophagitis K21.9 History of 2019 novel coronavirus disease (COVID-19) Z86.16 Aortic valve sclerosis I35.8 Mild aortic regurgitation I35.1 BPH with obstruction/lower urinary tract symptoms N40.1, N13.8 Essential (primary) hypertension I10 Left bundle-branch block, unspecified I44.7 Current Outpatient Medications Medication Sig Dispense Refill [employer] ULTRASOFT LANCETS MISC Use up to four times a day as directed 1 Box 11 aspirin enteric coated 81 MG TBEC Take 1 Tablet by mouth in the morning. 100 Tab 3 Blood Glucose Monitoring Suppl ([employer] ULTRA SYSTEM) w/Device KIT Use to check blood sugar 2 times a day or as directed Dx. E 11.9 1 Kit 0 Acetaminophen 500 MG Oral Tablet Take 1 Tablet by mouth daily as needed for Pain. [employer] Ultra Blue In Vitro Strip (Glucose Blood) Use to check sugars four times a day 400 Strip 1 Insulin Pen Needle 31G X 8 MM Use with Lantus insulin pen 300 Each 1 Omeprazole 20 MG Oral Capsule Delayed Release (PriLOSEC) TAKE ONE CAPSULE BY MOUTH IN THE MORNING 90 Capsule 3 Metoprolol Succinate ER 25 MG Oral Tablet Extended Release 24 Hour (toPROL XL) TAKE ONE TABLET BY MOUTH IN THE MORNING 90 Tablet 3 Lisinopril 5 MG Oral Tablet (Prinivil) TAKE ONE TABLET BY MOUTH IN THE MORNING 90 Tablet 3 Atorvastatin Calcium 40 MG Oral Tablet (Lipitor) Take 1 Tablet by mouth in the morning. 90 Tablet 1 Alfuzosin HCl ER 10 MG Oral Tablet Extended Release 24 Hour (Uroxatral) Take 1 Tablet by mouth in the morning. 90 Tablet 3 Insulin Glargine Solostar 100 UNIT/ML Subcutaneous Solution Pen-injector (Lantus SoloStar) Inject 10 Units under the skin every night at bedtime. (Patient taking differently: Inject 10 Units under the skin as needed.) 6 mL 2 Trulicity 3 MG/0.5ML Subcutaneous Solution Pen-injector (Dulaglutide) Inject 3 mg under the skin once a week. 2 mL 3 buPROPion HCl ER (SR) 150 MG Oral Tablet Extended Release 12 Hour (Wellbutrin SR) Take 1 Tablet by mouth in the morning and 1 Tablet before bedtime. 180 Tablet 2 No current facility-administered medications for this visit. Review of patient's allergies indicates: Allergen Reactions Jardiance [Empagliflozin] Other (Please comment) Caused extreme drowsiness and excessive urination and dehydration Health Maintenance Due Topic Date Due COVID-19 Vaccine ( season) 2023 Diabetic Eye Exam 02/12/2023 Depression Screening 05/14/2023 HbA1c 06/06/2023 Colorectal Cancer Screening 07/17/2023 ROS: CONSTITUTIONAL: + change in weight, No weakness, and No fevers, sweats, or chills EYE: No recent significant change in vision, No eye pain, redness, discharge, and No diplopia EARS: No ear pain, No drainage, No tinnitus or vertigo, and No recent change in hearing PULMONARY: No cough, sputum, or hemoptysis, No wheezing, No rales, No shortness of breath, and No recent change in breathing CARDIOVASCULAR: No chest pain, No shortness of breath, No dyspnea on exertion, No orthopnea, No paroxysmal nocturnal dyspnea, No edema, No palpitations, and No syncope GASTROINTESTINAL: No abdominal pain, No change in bowel habits, No significant heartburn, No significant change in appetite, No nausea, vomiting, diarrhea, or constipation, No hematemesis, No blood in stools or black tarry stools, No abdominal bloating or early satiety, and No dysphagia EXTREMITIES: No pain, redness or swelling on the joints SKIN/INTEGUMENTARY: No edema, No rash, and No itching NEUROLOGIC: Normal balance, No headaches, No seizures, and No weakness ALL OTHER SYSTEMS NEGATIVE I reviewed social, PMH, PSH, and family history and updated where needed. 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 Tobacco Use Smoking status: Former Packs/day: 0.50 Years: 20.00 Additional pack years: 0.00 Total pack years: 10.00 Types: Cigarettes Quit date: 05/24/2010 Years since quittin.0 Smokeless tobacco: Never Vaping Use Vaping Use: Never used Substance and Sexual Activity Alcohol use: Yes Alcohol/week: 3.3 standard drinks of alcohol Types: 4 12 oz of beer per week Comment: 2 times a month if that Drug use: No Sexual activity: Not Currently Other Topics Concern Not on file Social History Narrative 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[employer], 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, 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 Social Determinants of Health Financial Resource Strain: Not on file Food Insecurity: No Food Insecurity (05/12/2022) Hunger Vital Sign Worried About Running Out of Food in the Last Year: Never true Ran Out of Food in the Last Year: Never true Transportation Needs: Not on file Physical Activity: Not on file Stress: Not on file Social Connections: Not on file Intimate Partner Violence: Not on file Housing Stability: Not on file Past Medical History: Diagnosis Date Aortic valve sclerosis 05/25/2021 Ascending aortic aneurysm (HCC) 07/15/2016 DM type 2, goal A1c below 7 09/08/2012 Fatty liver 03/17/2021 Gastroparesis 09/16/2018 History of 2019 novel coronavirus disease (COVID-19) 03/17/2021 History of DVT (deep vein thrombosis) 11/01/2017 2009, left History of giardiasis 05/04/2018 Mild aortic regurgitation 05/25/2021 Past Surgical History: Procedure Laterality Date COLONOSCOPY, DIAGNOSTIC (RECTUM) 07/17/2013 COLONOSCOPY FLEXIBLE PROXIMAL DIAGNOSTIC performed by Jarred Venegas MD at ENDOSCOPY [facility] EGD, FLEXIBLE, DIAGNOSTIC 04/04/2018 retained food, repeat/ESOPHAGOGASTRODUODENOSCOPY (EGD), FLEXIBLE, TRANSORAL, DIAGNOSTIC performed by Cornell Gonzalez MD at ENDOSCOPY [facility] EGD, FLEXIBLE,W/ENDOSCOPIC US 04/22/2018 giardia, fatty liver, pancreatic cyst/[facility] EGD, W/ENDOSCOPIC US 04/04/2018 ESOPHAGOGASTRODUODENOSCOPY (EGD), FLEXIBLE, TRANSORAL, ENDOSCOPIC ULTRASOUND performed by Cornell Raymundo MD at ENDOSCOPY [facility] REPAIR INGUINAL HERNIA, UNDER AGE 5 REVISE EYE MUSCLE W/SUTURE Family History Problem Relation Age of Onset Cancer Mother breast Cancer Father prostate Diabetes Father borderline Dementia Father Frontal lobe? Diabetes Sister borderline Eye Problems Other denies fm: Glaucoma, RD, AMD, Blindness OBJECTIVE: PHYSICAL EXAM: BP 138/88 | Pulse 77 | Temp 36.7 C (98 F) (Tympanic) | Ht 1.803 m (5' 11") | Wt 111 kg (244 lb12.8 oz) | SpO2 96% | BMI 34.14 kg/m | BSA 2.36 m General: alert, healthy, and no distress Head: Normocephalic, No masses, lesions, or abnormalities Eye Exam: conjunctiva are pink and non-injected, sclera clear Ears: External ears normal, Canals clear, TM's Normal Heart: regular rate & rhythm, no murmur, no gallops, PMI non-displaced, S-1 normal, and S-2 normal Lungs: normal respiratory rate and rhythm, lungs clear to auscultation Extremities: no edema, no clubbing, no cyanosis Psych: normal affect, no flight of ideas or tangential thought, good eye contact, no pressured speech 01/04/23 urology: Impression/Plan: 57-year-old male with improved BPH and PSA. We are pleased with the patient's improvement. Will leave as is. Will plan on 1 year follow-up withPSA value. Refills in the fall when due. 11/12/22 cardiology: We reviewed recent echo findings. Ascending aorta measuring 4.7 cm by echo criteria. No recent chest CT. Will order non contrast study for recheck of ascending aorta measurements out of the scope of echocardiographic imaging. Patient agreeable BP controlled Lipids controlled Congratulated on weight loss efforts. The patient is to continue all current medications as listed above. No changes were made at today'svisit. 05/14/23 ct chest: 1. Mild aneurysmal dilatation of the ascending aorta measuring 4.6 x 4.5 cm in maximum diameter. 2. 6 mm subpleural pulmonary nodule right upper lobe. Recommend repeat CT chest in 6-12 months for further assessment. ASSESSMENT: E11.29,R80.9 Type 2 diabetes mellitus with proteinuria (primary encounter diagnosis) I44.7 Left bundle-branch block, unspecified E11.9 Type 2 diabetes mellitus with hemoglobin A1c goal of less than 7.0% (HCC) N40.1,N13.8 BPH with obstruction/lower urinary tract symptoms K21.9 Gastro-esophageal reflux disease without esophagitis F32.0 Current mild episode of major depressive disorder without prior episode (HCC) K76.0 Fatty liver E11.9 DM type 2 nursing care encounter ([facility]) I10 Essential (primary) hypertension Z23 Need for prophylactic vaccination with tetanus-diphtheria (Td) Z12.11 Screen for colon cancer R91.1 Lung nodule PLAN: Type 2 diabetes mellitus with proteinuria (Primary) - HEMOGLOBIN A1C; Future; Expected date: 06/02/2023 Labs soon Cont trulicity, insulin, Cont lisinopril Left bundle-branch block, unspecified Sees cardiology Type 2 diabetes mellitus with hemoglobin A1c goal of less than 7.0% ([facility]) Cont meds as above BPH with obstruction/lower urinary tract symptoms - PSA; Future; Expected date: 06/02/2023 Cont alfuzosin Gastro-esophageal reflux disease without esophagitis Cont omeprazole Current mild episode of major depressive disorder without prior episode (HCC) - CBC WITH WBC DIFFERENTIAL; Future; Expected date: 06/02/2023 Cnt bupropion Fatty liver - COMPREHENSIVE METABOLIC PANEL; Future; Expected date: 06/02/2023 - LIPID PANEL WITH DIRECT LDL IF TG IS HIGH; Future; Expected date: 06/02/2023 Weight loss discussed DM type 2 nursing care encounter (HCC) - DIABETES FOOT EXAM Essential (primary) hypertension Cont lisinopril, metoprolol Need for prophylactic vaccination with tetanus-diphtheria (Td) - TETANUS-DIPHTHERIA, AGE 7 AND OLDER Screen for colon cancer - COLONOSCOPY, GI REFERRAL OP Lung nodule - STAIR LUNG NODULE REFERRAL OP (SYSTEM FOR TRACKING ABNORMALITIES OF IMPORTANCE RELIABLY) On recent ct with cardiology, refer to stair Follow Up: Return in about 6 months (around 12/01/2023), or if symptoms worsen or fail to improve, for Fasting Labs Soon. | For: Fasting Labs Soon Claus Sullivan MD * Kamilah Mendez LPN - 06/02/2023 12:25 PM EST DM Foot Exam completed today. Provider aware. Kamilah Mendez LPN Socks and Shoes Removed for Annual Diabetic Foot Screening RIGHT FOOT: No Reddened, Cracking, Or Open Areas Noted. RIGHT Dorsalis Pedis Pulse: Palpable RIGHT Posterior Tibial Pulse: Palpable RIGHT Monofilament:Patient reports feeling monofilament pressure on plantar surface of foot LEFT FOOT: No Reddened, Cracking or Open Areas Noted. LEFT Dorsalis Pedis Pulse: Palpable LEFT Posterior Tibial Pulse: Palpable LEFT Monofilament:Patient reports feeling monofilament pressure on plantar surface of foot Do you need diabetic shoes: No Immunization Administration Documentation Time Out Procedure Performed: Yes Patient Identified (Ask Name/Date of ): Yes Does the patient have a fever greater than 101 degrees today? No Patient allergic to latex? No VFC Stock: No Immunization(s) verified: Yes, Immunization Name: Td (Adult Preservative Free), VIS Sheet(s) given:Yes Verified Side and Site: Yes Verified Shot(s) with Parent(s)/Patient: Yes documented in this encounter Nursing Notes * Kamilah Mendez LPN - 06/02/2023 12:24 PM EST Chief Complaint Patient presents with Follow Up 6mo return documented in this encounter Plan of Treatment Upcoming Encounters Date Type Department Care Team (Late st Contact Info) Description 11/02/2023 11:00 AM EDT Office Visit Cardiology, [facility] [address] [facility] [place] [address] Sommer Mcqueen PA-C [address] [facility] [place] [address] 12/01/2023 12:40 PM EDT Office Visit General Internal Medicine [facility] [address] [facility] [place] [address] Claus Sullivan MD [address] [facility] [place] [address] 01/05/2024 1:30 PM EDT Office Visit Urology, [facility] [address] [place] [address] Gage Norris MD [address] [facility] [address] [place] [address] Scheduled Orders Name Type Priority Associated Diagnoses Orde r Schedule COMPREHENSIVE METABOLIC PANEL Lab Routine Fatty liver Expected: 06/02/2023 (Approximate), Expires: 06/01/2024 LIPID PANEL WITH DIRECT LDL IF TG IS HIGH Lab Routine Fatty liver Expected: 06/02/2023, Expires: 06/02/2024 HEMOGLOBIN A1C Lab Routine Type 2 diabetes mellitus with proteinuria Expected: 06/02/2023 (Approximate), Expires: 06/01/2024 CBC WITH WBC DIFFERENTIAL Lab Routine Current mild episode of major depressive disorder without prior episode (HCC) Expected: 06/02/2023 (Approximate), Expires: 06/02/2024 PSA Lab Routine BPH with obstruction/lower urinary tract symptoms Expected: 06/02/2023 (Approximate), Expires: 06/01/2024 Scheduled Procedures Name Priority Associated Diagnoses Date/Ti me COLONOSCOPY FLEXIBLE PROXIMA L DIAGNOSTIC Recall Special screening for malignant neoplasms, colon Scheduled Referrals Name Type Priority Associated Diagnoses Order Schedule COLONOSCOPY, GI REFERRAL OP Referral Within 30 days (routine) Screen for colon cancer Ordered: 06/02/2023 STAIR LUNG NODULE REFERRAL OP (SYSTEM FOR TRACKING ABNORMALITIES OF IMPORTANCE RELIABLY) Referral Within 10 days (routine) Lung nodule Ordered: 06/02/2023 Health Maintenance Due Date Last Done Comments [...] Colorectal Cancer Screening 07/17/2023 GFR 12/05/2023 12/04/2022, 010 07/2022, 05/14/2022, Additional history exists Albumin/Creatinine Ratio [...] Diagnoses Diagnosis Type 2 diabetes mellitus with proteinuria- Primary Left bundle-branch block, unspecified Type 2 diabetes mellitus with hemoglobin A1c goal of less than 7.0% (HCC) BPH with obstruction/lower urinary tract symptoms Hypertrophy of prostate with urinary obstruction and other lower urinary tract symptoms (LUTS) Gastro-esophageal reflux disease without esophagitis Esophageal reflux Current mild episode of major depressive disorder without prior episode (HCC) Fatty liver Other chronic nonalcoholic liver disease DM type 2 nursing care encounter (HCC) Type II or unspecified type diabetes mellitus without mention of complication, not stated as uncontrolled Essential (primary) hypertension Unspecified essential hypertension Need for prophylactic vaccination with tetanus-diphtheria (Td) Screen for colon cancer Special screening for malignant neoplasms, colon Lung nodule Solitary pulmonary nodule documented in this encounter Care Teams [place] Relationship Specialty Start Date End Date Claus Sullivan MD [address] [place] [address] PCP - General Internal Medicine 09/08/12 documented as of this encounter
--- OUTSIDE RECORDS SUMMARY | 2023-06-29 02:10 | External Medical Summary | Summary of Care ---
Author Name Unknown Organization [facility] Address [address] [facility] [place] [address] Phone [phone] Care Team Providers Care Water Taxi Boat Mate Name Role Phone Claus Sullivan MD Primary Care Provider + Reason for Visit * Reason Onset Date Comments Medication Refill 05/16/2023 Encounter Details Date Type Department Care Team (Late st Contact Info) Description 05/16/2023 Refill General Internal Medicine [facility] [address] [place] [address] Claus Sullivan MD [address] [place] [address] Depression Allergies Active Allergy Reactions Criticality Noted Date Comments Empagliflozin Other (Please comment) 10/26/2018 Caused extreme drowsiness and excessive urination and dehydration documented as of this encounter (statuses as of 05/18/2023) Medications Medication Sig Dispensed Refills Start Date End Date Status [facility] ULTRASOFT LANCETS MISCIndications:DM type 2, goal A1c [...] A1c goal of less than 7.0% ([facility]) Use to check sugars four times a [...] IN THE MORNING 90 Tablet 3 07/20/2022 07/20/2023 Active Lisinopril 5 MG Oral Tablet (Prinivil)Indicati ons:Proteinuria TAKE ONE TABLET BY MOUTH IN THE MORNING 90 Tablet 3 07/20/2022 07/20/2023 Active Atorvastatin Calcium 40 MG Oral Tablet (Lipitor)Indicatio ns:Hyperlipidemia Take 1 Tablet by mouth in the morning. 90 Tablet 1 08/18/2022 Active Alfuzosin HCl ER 10 MG Oral Tablet Extended Release 24 Hour (Uroxatral) Take 1 Tablet by mouth in the morning. 90 Tablet 3 08/21/2022 Active Insulin Glargine Solostar 100 UNIT/ML Subcutaneous Solution Pen-injector (Lantus SoloStar)Indicatio ns:Type 2 diabetes mellitus with proteinuria Inject 10 Units under the skin every night at bedtime. 6 mL 2 09/24/2022 Active Trulicity 3 MG/0.5ML Subcutaneous Solution Pen-injector (Dulaglutide)Indic ations:Type 2 diabetes mellitus with proteinuria Inject 3 mg under the skin once a week. 2 mL 3 02/18/2023 Active buPROPion HCl ER (SR) 150 MG Oral Tablet Extended Release 12 Hour (Wellbutrin SR)Indications:Dep ression Take 1 Tablet by mouth in the morning and 1 Tablet before bedtime. 180 Tablet 2 05/18/2023 Active buPROPion HCl ER (SR) 150 MG Oral Tablet Extended Release 12 Hour (Wellbutrin SR)Indications:Dep ression Take 1 Tablet by mouth in the morning and 1 Tablet before bedtime. 180 Tablet 2 07/28/2022 05/16/2023 Discontinue d(Refill) documented as of this encounter (statuses as of 05/18/2023) Active Problems Problem Noted Date Diagnosed Date [...] as of this encounter (statuses as of 05/18/2023) Resolved Problems Problem Noted Date Diagnosed Date [...] as of this encounter (statuses as of 05/18/2023) Immunizations Name Administration Dates Next Due COVID-19 mRNA, LNP-s, No Pre serve, 2-Dose Series (DeskActive) 03/26/2021,08/07/2020,07/10/2020 COVID-19, LNP-s, No Preserve , Néstor-sucrose, Ages 12+ (Pfizer) 11/11/2021 Covid-19, Mrna, Lnp-s, Pf, B ivalent, 30 Mcg, IM, 12 yrs and above (DeskActive) 03/16/2022 Hepatitis B, 20+ yrs 12/26/2013,07/24/2013,06/26 Pneumococcal Conjugate Vacci ne, 20-valent ([id number]) 11/03/2021 Pneumococcal Polysaccharide PPV23 (Pneumovax) 12/22/2012 Seasonal Influenza, PF, 6 M & above, IM , (FluLaval or Fluzone) 02/08/2023,03/17/2021,06/12/2020,03/24,02/02/2018,06/25/2017 Seasonal Influenza, Quadriva lent, No Preserve, IM 03/16/2022,03/03/2016,04/19/2015 Seasonal Influenza, Split, I IV3, With Preserve, Inj 04/02/2014,03/24/2013 TDAP (age 10 and older)(Boostrix) 12/22/2012 Zoster [...] encounter Miscellaneous Notes * Telephone Encounter - Darrell Melo RPh - 05/18/2023 12:34 PM ESTSigned Prescriptions: Disp Refills buPROPion HCl ER (SR) 150 MG Oral Tablet E*180 Ta*2 Sig: Take 1 Tablet by mouth in the morning and 1 Tablet before bedtime.Authorizing Provider: Rivas SULLIVAN User: DARRELL MELO documented in this encounter Plan of Treatment Upcoming Encounters Date Type Department Care Team (Late st Contact Info) Description 06/02/2023 12:40 PM EST Office Visit General Internal Medicine [facility] Cam[facility] [address] [place] [address] Claus Sullivan MD [address] [facility] [place] [address] 11/02/2023 11:00 AM EDT Office Visit Cardiology, [facility] [address] [facility] [place] [address] Sommer Mcqueen PA-C [address] [place] [address] 01/05/2024 1:30 PM EDT Office Visit Urology, [facility] [address] [place] [address] Gage Norris MD [address] [facility] [address] [place] [address] Scheduled Procedures Name Priority Associated Diagnoses Date/Ti me COLONOSCOPY FLEXIBLE PROXIMA L DIAGNOSTIC Recall Special screening for malignant neoplasms, colon Health Maintenance Due Date Last Done Comments Cologuard 2008 Sigmoidoscopy 2008 Fecal Occult Blood Test 10/27/2019 10/26/2018 DTaP,Tdap,and Td Vaccines (2 - Td or Tdap) 12/22/2022 12/22/2012 COVID-19 Vaccine ( season) 2023 03/16/2022, 11/11/2021, 03/26/2021, Additional history exists Diabetic Eye Exam 02/12/2023 02/12/2022, , 05/20/2020, Additional history exists Depression Screening 05/14/2023 05/14/2022, 07/13/19 15 Diabetic Foot Exam 05/14/2023 05/14/2022, 1 , 06/12/2020, Additional history exists HbA1c 06/06/2023 12/04/2022, 04/0 08/2022, 05/07/2022 (Done elsewhere), Additional history exists Colonoscopy 07/17/2023 07/17/2013, 07/17/2013 Colorectal Cancer Screening 07/17/2023 GFR 12/05/2023 12/04/2022, 01/0 07/2022, 05/14/2022, Additional history exists Albumin/Creatinine Ratio 05/03/2024 023, 05/14/2022, 05/19/2021, Additional history exists Lipid Panel 05/14/2027 05/14/2022, 02/22, 12/08/2019, Additional history exists Hepatitis B Completed 12/26/2013, 07/2013, 06/26/2013 Zoster [...] as of this encounter Visit Diagnoses Diagnosis Depression Depressive disorder, not elsewhere classified documented in this encounter Care Teams Water Taxi Boat Mate Relationship Specialty Start Date End Date Claus Sullivan MD 200 [place] [address] PCP - General Internal Medicine 09/08/12 documented as of this encounter
--- OUTSIDE RECORDS SUMMARY | 2023-06-29 02:11 | External Medical Summary | Summary of Care ---
Author Name Unknown Organization [facility] Address [address] [facility] [address] Phone [phone] Care Team Providers Care Picture Painter Name Role Phone Claus Sullivan MD Primary Care Provider + Encounter Details Date Type Department Care Team (Late st Contact Info) Description 04/08/2023 Telephone Urology Dat Boy[facility] [address] [place] [address] [place] [phone] Gage Norris MD [address] [place] [address] [place] [address] Allergies Active Allergy Reactions Criticality Noted Date Comments Empagliflozin Other (Please comment) 10/26/2018 Caused extreme drowsiness and excessive urination and dehydration documented as of this encounter (statuses as of 04/08/2023) Medications Medication Sig Dispensed Refills Start Date [...] OneTouch Ultra Blue In Vitro Strip (Glucose Blood)Indications:Ty pe 2 diabetes mellitus with hemoglobin A1c goal of less than 7.0% (HCC) Use to check sugars four times a day 400 Strip 1 04/07/2021 Active Insulin Pen Needle 31G X 8 MM Use with Lantus insulin pen 300 Each 1 04/07/2021 Active Omeprazole 20 MG Oral Capsule Delayed Release (PriLOSEC) TAKE ONE CAPSULE BY MOUTH IN THE MORNING 90 Capsule 3 05/12/2022 05/12/2023 Active Metoprolol Succinate ER 25 MG Oral Tablet Extended Release 24 Hour (toPROL XL) TAKE ONE TABLET BY MOUTH IN THE MORNING 90 Tablet 3 07/20/2022 07/20/2023 Active Lisinopril 5 MG Oral Tablet (Prinivil)Indication s:Proteinuria TAKE ONE TABLET BY MOUTH IN THE MORNING 90 Tablet 3 07/20/2022 07/20/2023 Active buPROPion HCl ER (SR) 150 MG Oral Tablet Extended Release 12 Hour (Wellbutrin SR)Indications:Depre ssion Take 1 Tablet by mouth in the morning and 1 Tablet before bedtime. 180 Tablet 2 07/28/2022 Active Atorvastatin Calcium 40 MG Oral Tablet (Lipitor)Indications :Hyperlipidemia Take 1 Tablet by mouth in the morning. 90 Tablet 1 08/18/2022 Active Alfuzosin HCl ER 10 MG Oral Tablet Extended Release 24 Hour (Uroxatral) Take 1 Tablet by mouth in the morning. 90 Tablet 3 08/21/2022 Active Insulin Glargine Solostar 100 UNIT/ML Subcutaneous Solution Pen-injector (Lantus SoloStar)Indications :Type 2 diabetes mellitus with proteinuria Inject 10 Units under the skin every night at bedtime. 6 mL 2 09/24/2022 Active Trulicity 3 MG/0.5ML Subcutaneous Solution Pen-injector (Dulaglutide)Indicat ions:Type 2 diabetes mellitus with proteinuria Inject 3 mg under the skin once a week. 2 mL 3 02/18/2023 Active documented as of this encounter (statuses as of 04/08/2023) Active Problems Problem Noted Date Diagnosed Date [...] as of this encounter (statuses as of 04/08/2023) Resolved Problems Problem Noted Date Diagnosed Date [...] as of this encounter (statuses as of 04/08/2023) Immunizations Name Administration Dates Next Due COVID-19 mRNA, LNP-s, No Pre serve, 2-Dose Series (Weaved) 03/26/2021,08/07/2020,07/10/2020 COVID-19, LNP-s, No Preserve , Néstor-sucrose, Ages 12+ (Pfizer) 11/11/2021 Covid-19, Mrna, Lnp-s, Pf, B ivalent, 30 Mcg, IM, 12 yrs and above (Pfizer) 03/16/2022 Hepatitis B, 20+ yrs 12/26/2013,07/24/2013,06/26 Pneumococcal Conjugate Vacci ne, 20-valent ([id number]) 11/03/2021 Pneumococcal Polysaccharide PPV23 (Pneumovax) 12/22/2012 SEASONAL INFLUENZA, PF, 6 M & Above, IM , (FLULAVAL or FLUZONE) 02/08/2023,03/17/2021,06/12/2020,03/24,02/02/2018,06/25/2017 Seasonal Influenza, Quadriva lent, No Preserve, [...] Care Team (Late st Contact Info) Description 05/14/2023 1:00 PM EST Imaging Radiology [facility] [address] [facility] [place] [address] 06/02/2023 12:40 PM EST Office Visit General Internal Medicine [facility] [address] [facility] [place] [address] Claus Sullivan MD [address] [facility] [place] [address] 11/02/2023 11:00 AM EDT Office Visit Cardiology, [facility] [address] [facility] [place] [address] Sommer Mcqueen PA-C [address] [facility] [place] [address] 01/05/2024 1:30 PM EDT Office Visit Urology, [facility] [address] [facility] [place] [address] Gage Norris MD 27 [facility] [address] [place] [phone] Scheduled Procedures Name Priority Associated Diagnoses Date/Ti [...] 02/12/2023 02/12/2022, , 05/20/2020, Additional history exists Albumin/Creatinine Ratio 05/14/2023 022, 05/19/2021, 03/21/2021, Additional history exists Depression Screening 05/14/2023 05/14/2022, 07/13/19 15 Diabetic Foot Exam 05/14/2023 05/14/2022, 1 , 06/12/2020, Additional history exists HbA1c 06/06/2023 12/04/2022, 04/0 08/2022, 05/07/2022 (Done elsewhere), Additional history exists Colonoscopy 07/17/2023 07/17/2013, 07/17/2013 Colorectal Cancer Screening 07/17/2023 GFR 12/05/2023 12/04/2022, 07/2022, 05/14/2022, Additional history exists Lipid Panel 05/14/2027 05/14/2022, [...] filedocumented as of this encounter Care Teams Picture Painter Relationship Specialty Start Date End Date Doberstein, Claus F, MD [address] [place] [address] PCP - General Internal Medicine 09/08/12 documented as of this encounter
--- OUTSIDE RECORDS SUMMARY | 2023-06-29 02:11 | External Medical Summary ---
Author Name Unknown Address Unknown Organization [facility] - [address] [place], [place] [id number] Laboratory Report Ordering Provider Test Date Status SELVIN PEPPER 05/03/2023 14:47:00 Final Normal: <30 mg/g creatinine< br/>High: 30-300 mg/g creatinine
Very High: >300 mg/g creatinine
Nephrotic: >2200 mg/g creatinine Observation Date Value Abnormality Reference (Units ) Status Albumin, Urine 05/03/2023 14:47:00 <1.20 (mg/d L) Final This testing was performed a s part of a [facility] fulfillment initiative Creatinine, Urine 05/03/2023 14:47:00 85 (m g/dL) Final Albumin/Creatinine [Mass Rat io] in Urine 05/03/2023 14:47:00 <14 <30 (mg/g Creat) Josselyn valentine Performing Location [facility] - [address] [facility] [address]
--- OUTSIDE RECORDS SUMMARY | 2023-06-29 02:11 | External Medical Summary | Summary of Care ---
Author Name Unknown Organization [facility] Address [address] [facility] [address] Phone [phone] Care Team Providers Care Disposition Clerk Name Role Phone Claus Phelan MD Primary Care Provider + Reason for Visit * Reason Comments Medication Refill Encounter Details Date Type Department Care Team Description 02/17/2023 Refill General Internal Medicine [facility] [address] [facility] [place] [phone] Claus Phelan MD 200 [facility] [place] [address] Type 2 diabetes mellitus with proteinuria (HCC) Allergies Active Allergy Reactions Severity Noted Date Comments Empagliflozin Other (Please comment) 10/26/2018 Caused extreme drowsiness and excessive urination and dehydration documented as of this encounter (statuses as of 02/18/2023) Medications Medication Sig Dispensed Refills Start Date [...] a week. 2 mL 3 02/18/2023 Active Trulicity 3 MG/0.5ML Subcutaneous Solution Pen-injector (Dulaglutide)Indic ations:Type 2 diabetes mellitus with proteinuria Inject 3 mg under the skin once a week. 2 mL 3 10/27/2022 02/17/2023 Discontinue d(Refill) documented as of this encounter (statuses as of 02/18/2023) Active Problems Problem Noted Date BPH with obstruction/lower urinary tract symptoms 05/26/2022 Essential (primary) hypertension 023 Left bundle-branch block, unspecified Aortic valve sclerosis 05/25/2021 Mild aortic regurgitation 05/25/2021 Fatty liver 03/17/2021 Gastro-esophageal reflux disease without esophagitis 03/17/2021 History of 2019 novel coronavirus diseas e (COVID-19) 03/17/2021 SVT (supraventricular tachycardia) 11/30 Gastroparesis 09/16/2018 History of giardiasis 05/04/2018 Class 2 severe obesity due t o excess calories with serious comorbidity in adult 05/04/2018 Mixed hyperlipidemia 11/01/2017 Current mild episode of major depressive disorder without prior episode 11/01/2017 History of DVT (deep vein thrombosis) Type 2 diabetes mellitus with proteinuri a 10/14/2016 Ascending aortic aneurysm 07/15/2016 Type 2 diabetes mellitus with hemoglobin A1c goal of less than 7.0% 09/08/2012 Overview: ICD-10 update of inactive term documented as of this encounter (statuses as of 02/18/2023) Resolved Problems Problem Noted Date Resolved Date Major depressive disorder with single episode 11/16/2022 Cellulitis of left lower extremity 05/26/2022 11/16/2022 Left bundle-branch block, unspecified 05/26/2022 11/16/2022 Age-related nuclear cataract, bilateral 05/07/20 22 05/08/2022 Age-related nuclear cataract, bilateral 05/07/20 22 05/08/2022 Age-related nuclear cataract, bilateral 05/07/20 22 05/26/2022 Age-related nuclear cataract, bilateral 03/17/20 21 11/03/2021 BPH without obstruction/lower urinary tract symp toms 03/17/2021 05/26/2022 Class 2 severe obesity due t o excess calories with serious comorbidity and body mass index (BMI) of 37.0 to 37.9 in adult 06/12/2020 03/17/2021 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/2018 03/17/2021 Depression 06/08/2014 11/01/2017 Hyperlipidemia 09/27/2013 11/01/2017 Hyperlipidemia with target LDL less than 100 09/27/2013 Overview: ICD-10 update of inactive term DVT (deep venous thrombosis) 09/08/201203/2018 Overview: Left leg DVT (deep venous thrombosis) Overview: left calf documented as of this encounter (statuses as of 02/18/2023) Immunizations Name Administration Dates Next Due COVID-19 mRNA, LNP-s, No Pre serve, 2-Dose Series (psicofxp) 03/26/2021,08/07/2020,07/10/2020 COVID-19, LNP-s, No Preserve , Néstor-sucrose, Ages 12+ (Pfizer) 11/11/2021 Covid-19, Mrna, Lnp-s, Pf, B ivalent, 30 Mcg, IM, 12 yrs and above (Pfizer) 03/16/2022 Hepatitis B, 20+ yrs 12/26/2013,07/24/2013,06/26 Pneumococcal Conjugate Vacci ne, 20-valent ([id number]) 11/03/2021 Pneumococcal Polysaccharide PPV23 (Pneumovax) 12/22/2012 Seasonal Influenza, PF, 6 mo ns & Above, IM , (Flulaval) 02/08/2023,03/17/2021,06/12/2020,03/24,02/02/2018,06/25/2017 Seasonal Influenza, Quadriva lent, No Preserve, [...] alcohol) 2 times a month if that Food Insecurity Answer Date Recorded Within the past 12 months, y ou worried that your food would run out before you got money to buy more. Never true 05/12/2022 Within the past 12 months, t he food you bought just didn't last and you didn't have money to get more. Never true 05/12/2022 Sex Assigned at Date Recorded Male 09/16/2018 7:56 AM E DT Job Start Date Occupation Industry Not on file Not on file Not on file documented as of this encounter Miscellaneous Notes * Telephone Encounter - Linda Collins RPh - 02/18/2023 2:19 PM EDT Signed Prescriptions: Disp Refills Trulicity 3 MG/0.5ML Subcutaneous Solution*2 mL 3 Sig: Inject 3 mg under the skin once a week.Authorizing Provider: CLAUS PHELAN User: LINDA COLLINS documented in this encounter Plan of Treatment Upcoming Encounters Date Type Specialty Care Team Description 05/14/2023 Imaging Radiology 06/02/2023 Office Visit Internal Medicine [facility]an MD [facility] [address] 11/02/2023 Office Visit Cardiology Sommer Mcqueen PA-C [address] [place] [address] 01/07/2024 Office Visit Urology [facility] Norris MD [facility] [address] [place] [address] Scheduled Procedures Name Priority Associated Diagnoses Date/Ti me COLONOSCOPY FLEXIBLE PROXIMA L DIAGNOSTIC Recall Special screening for malignant neoplasms, colon Health Maintenance Due Date Last Done Comments Cologuard 2008 Sigmoidoscopy 2008 Fecal Occult Blood Test 10/27/2019 10/26/2018 DTaP,Tdap,and Td Vaccines (2 - Td or Tdap) 12/22/2022 12/22/2012 DIABETES-EYE EXAM 02/12/2023 02/12/2022, , 05/20/2020, Additional history exists Albumin/Creatinine Ratio 05/14/2023 022, 05/19/2021, 03/21/2021, Additional history exists Depression Screening 05/14/2023 05/14/2022, 07/13/19 15 Diabetic Foot Exam 05/14/2023 05/14/2022, 1 , 06/12/2020, Additional history exists HbA1c 06/06/2023 12/04/2022, 04/0 08/2022, 05/07/2022 (Done elsewhere), Additional history exists Colonoscopy 07/17/2023 07/17/2013, 07/17/2013 Colorectal Cancer Screening 07/17/2023 GFR 12/05/2023 12/04/2022, 01/0 07/2022, 05/14/2022, Additional history exists Lipid Panel 05/14/2027 05/14/2022, 02/22, 12/08/2019, Additional history exists Hepatitis B Completed 12/26/2013, 07/2013, 06/26/2013 Zoster Vaccines Completed 05/04/2018, 02/02/2018 Pneumococcal Vaccine: Pediatrics (0 to 5 Years) and At-Risk Patients (6 to 64 Years) Completed 11/03/2021, 12/22/2012 COVID-19 Vaccine Completed 03/16/2022, , 03/26/2021, Additional history exists Influenza Vaccine (FLU shot) Completed , 03/16/2022, [...] Diagnosis Type 2 diabetes mellitus with proteinuria documented in this encounter Care Teams Disposition Clerk Relationship Specialty Start Date End Date Claus Phelan MD [address] [facility] [place] [address] PCP - General Internal Medicine 09/08/12 documented as of this encounter
--- OUTSIDE RECORDS SUMMARY | 2023-06-29 02:12 | External Medical Summary | Summary of Care ---
Author Name Unknown Organization [facility] Address [address] [facility] [address] Phone [phone] Care Team Providers Care Sow Farm Barn Technician Name Role Phone Claus Sullivan MD Primary Care Provider + Reason for Visit * Reason Onset Date Comments Pain Right upper flan k intermittently depending on body movement x's 6 months. Medication Administration 02/08/2023 Flu an d/or Pneumo Inj Encounter Details Date Type Department Care Team Description 02/08/2023 Office Visit General Internal Medicine [facility] [address] [facility] [place] [id number] Gage Abrams PA-C [address] [place] [address] Anxiety about health*; Acute right-sided thoracic back pain; Need for prophylactic vaccination and inoculation against influenza Allergies Active Allergy Reactions Severity Noted Date Comments Empagliflozin Other (Please comment) 10/26/2018 Caused extreme drowsiness and excessive urination and dehydration documented as of this encounter (statuses as of 02/08/2023) Medications Medication Sig Dispensed Refills Start Date [...] A1c goal of less than 7.0% ([facility]) Use to check blood sugar 2 times [...] SoloStar)Indications :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 2 mL 3 10/27/2022 Active documented as of this encounter (statuses as of 02/08/2023) Active Problems Problem Noted Date BPH with [...] as of this encounter (statuses as of 02/08/2023) Resolved Problems Problem Noted Date Resolved Date [...] as of this encounter (statuses as of 02/08/2023) Immunizations Name Administration Dates Next Due COVID-19 mRNA, LNP-s, No Pre serve, 2-Dose Series ([employer]) 03/26/2021,08/07/2020,07/10/2020 COVID-19, LNP-s, No Preserve , Néstor-sucrose, Ages 12+ (Pfizer) 11/11/2021 Covid-19, Mrna, Lnp-s, Pf, B ivalent, 30 Mcg, IM, 12 yrs and above ([employer]) 03/16/2022 Hepatitis B, 20+ yrs 12/26/2013,07/24/2013,06/26 Pneumococcal Conjugate Vacci ne, 20-valent ([id number]) 11/03/2021 Pneumococcal Polysaccharide PPV23 (Pneumovax) 12/22/2012 Seasonal [...] 20 Q uit: 05/24/2010 Smokeless Tobacco: Never Tobacco Cessation:Counseling Given: Not Answered Alcohol Use Standard Drinks/Week Comments Yes 3.3 [...] Sign Reading Time Taken Comments Blood Pressure 120/68 02/08/2023 11:20 AM EDT Pulse 78 02/08/2023 11:20 AM EDT Temperature 36.9 C (98.5 F) 02/08/2023 1 1:20 AM EDT Respiratory Rate - - Oxygen Saturation 98% 02/08/2023 11: 20 AM EDT Inhaled Oxygen Concentration - - Weight 108.5 kg (239 lb 3.2 oz) 023 11:20 AM EDT Height 180.3 cm (5' 11") 02/08/2023 11: 20 AM EDT Body Mass Index 33.36 02/08/2023 11:20 AM EDT documented in this encounter Progress Notes * Gage Abrams PA-C - 02/08/2023 11:24 AM EDT Subjective: Alexx Bush is a 57 year old male. Chief Complaint Patient presents with Pain Right upper flank intermittently depending on body movement x's 6 months. Medication Administration Flu and/or Pneumo Inj HPI: 57 y/o male with Dm II, HLD, HTN, obesity, GERD, gastroparesis, ascending aortic aneurysm, BPH, depression seen today with complaint of right thoracic pain about nipple ling and mid-axillary line. Sharp pending on movement. Intermittent over the last 6 months. He is just anxious he could have cancer with his previous smoking history or something bad may be going on. PMH: Patient Active Problem List Diagnosis Code Type 2 diabetes mellitus with hemoglobin A1c goal of less than 7.0% (HCC) E11.9 Ascending aortic aneurysm (HCC) I71.21 Type 2 diabetes mellitus with proteinuria ([facility]) E11.29, R80.9 Mixed hyperlipidemia E78.2 Current mild episode of major depressive disorder without prior episode ([facility]) F32.0 History of DVT (deep vein thrombosis) Z86.718 History of giardiasis Z86.19 Class 2 severe obesity due to excess calories with serious comorbidity in adult ([facility]) E66.01 Gastroparesis K31.84 SVT (supraventricular tachycardia) ([facility]) I47.1 Fatty liver K76.0 Gastro-esophageal reflux disease without esophagitis K21.9 History of 2019 novel coronavirus disease (COVID-19) Z86.16 Aortic valve sclerosis I35.8 Mild aortic regurgitation I35.1 BPH with obstruction/lower urinary tract symptoms N40.1, N13.8 Essential (primary) hypertension I10 Left bundle-branch block, unspecified I44.7 Current Outpatient Medications Medication Sig Dispense Refill SheerIDTOUCH ULTRASOFT LANCETS MISC Use up to four times a day as directed 1 Box 11 aspirin enteric coated 81 MG TBEC Take 1 Tablet by mouth in the morning. 100 Tab 3 Blood Glucose Monitoring Suppl (Engezni ULTRA SYSTEM) w/Device KIT Use to check blood sugar 2 times a day or as directed Dx. E 11.9 1 Kit 0 Acetaminophen 500 MG Oral Tablet Take 1 Tablet by mouth daily as needed for Pain. Pairinuch Ultra Blue In Vitro Strip (Glucose Blood) [...] MOUTH IN THE MORNING 90 Tablet 3 buPROPion HCl ER (SR) 150 MG Oral Tablet Extended Release 12 Hour (Wellbutrin SR) Take 1 Tablet by mouth in the morning and 1 Tablet before bedtime. 180 Tablet 2 Atorvastatin Calcium 40 MG Oral Tablet (Lipitor) [...] every night at bedtime. 6 mL 2 Trulicity 3 MG/0.5ML Subcutaneous Solution Pen-injector (Dulaglutide) Inject 3 mg under the skin once a week. 2 mL 3 No current facility-administered medications for this visit. Review of patient's allergies indicates: Allergen Reactions Jardiance [Empagliflozin] Other (Please comment) Caused extreme drowsiness and excessive urination and dehydration All other review of systems reviewed and negative other than mentioned in HPI. Objective: BP 120/68 | Pulse 78 | Temp 36.9 C (98.5 F) | Ht 1.803 m (5' 11") | Wt 108.5 kg (239 lb 3.2 oz)| SpO2 98% | BMI 33.36 kg/m | BSA 2.33 m Physical Exam Constitutional: General: He is not in acute distress. Appearance: Normal appearance. He is normal weight. He is not ill-appearing or toxic-appearing. HENT: Head: Normocephalic and atraumatic. Eyes: Extraocular Movements: Extraocular movements intact. Conjunctiva/sclera: Conjunctivae normal. Pupils: Pupils are equal, round, and reactive to light. Cardiovascular: Rate and Rhythm: Normal rate and regular rhythm. Heart sounds: Normal heart sounds. No murmur heard. No friction rub. No gallop. Pulmonary: Effort: Pulmonary effort is normal. Breath sounds: Normal breath sounds. No wheezing, rhonchi or rales. Abdominal: General: Bowel sounds are normal. There is no distension. Palpations: Abdomen is soft. There is no mass. Tenderness: There is no abdominal tenderness. There is no guarding or rebound. Musculoskeletal: General: No tenderness. Normal range of motion. Neurological: Mental Status: He is alert. ASSESSMENT: Anxiety about health (Primary) As noted below. Acute right-sided thoracic back pain No current pain. Nothing reproducible on exam. Possible something musculoskeletal or possible thoracic radiculopathy at times. Does not occur often and is positional when working. Advised on monitoring for now. Does have a CT chest upcoming. Gave him reassurance, I do not believe is related to lung nodule or malignancy. Does not have any history of lung nodules. None seen on CT in 2019. Need for prophylactic vaccination and inoculation against influenza - INFLUENZA VACC, QUAD, PF, 6 MONTHS & UP, 0.5 ML, IM Follow Up: Return if symptoms worsen or fail to improve. Gage Abrams PA-C * Tri Means LPN - 02/08/2023 11:19 AM EDT PRE - ADMINISTRATION DOCUMENTATION Are you experiencing any cold symptoms or fever? No Have you had Guillain-[place] Syndrome (an illness that causes paralysis) within the last 6 weeks? No Have you had the flu shot in the past? YES Have you ever had a reaction to the flu shot? No Tri Means LPN, 02/08/2023 11:19 AM Immunization Administration Documentation Time Out Procedure Performed: Yes Patient Identified (Ask Name/Date of ): Yes Does the patient have a fever greater than 101 degrees today? No Patient allergic to latex? No VFC Stock: No Immunization(s) verified: Yes, Immunization Name: Flu, VIS Sheet(s) given: Yes Verified Side and Site: Yes Verified Shot(s) with Parent(s)/Patient: Yes documented in this encounter Plan of Treatment Upcoming Encounters Date Type Specialty Care Team Description 05/14/2023 Imaging Radiology 06/02/2023 [facility] [address] [facility] [phone] 11/02/2023 Office Visit Cardiology Sommer Mcqueen PA-C [address] [place] [address] 01/07/2024 Office Visit Urology Gage Norris MD [address] [place] [address] [place] [phone] Scheduled Procedures Name Priority Associated Diagnoses Date/Ti [...] Colorectal Cancer Screening 07/17/2023 GFR 12/05/2023 12/04/2022, /0 07/2022, 05/14/2022, Additional history exists Lipid Panel [...] as of this encounter Visit Diagnoses Diagnosis Anxiety about health- Primary Acute right-sided thoracic back pain Need for prophylactic vaccination and inoculation against influenza documented in this encounter Care Teams Sow Farm Barn Technician Relationship Specialty Start Date End Date Claus Sullivan MD [address] [place] [address] PCP - General Internal Medicine 09/08/12 documented as of this encounter
--- OUTSIDE RECORDS SUMMARY | 2023-06-29 02:12 | External Medical Summary | Summary of Care ---
Author Name Unknown Organization [facility] Address [address] [facility] [address] Phone [phone] Care Team Providers Care Rx Specialist Name Role Phone Claus Sullivan MD Primary Care Provider + Reason for Visit * Reason Onset Date Comments Advice 02/05/2023 Encounter Details Date Type Department Care Team Description 02/05/2023 Telephone General Internal Medicine [facility] [address] [facility] [place] [address] Claus Sullivan MD [address] [facility] [place] [address] Advice Allergies Active Allergy Reactions Severity Noted Date Comments Empagliflozin Other (Please comment) 10/26/2018 Caused extreme drowsiness and excessive urination and dehydration documented as of this encounter (statuses as of 02/05/2023) Medications Medication Sig Dispensed Refills Start Date [...] hemoglobin A1c goal of less than 7.0% ([facility]) Use to check blood sugar 2 times [...] as of this encounter (statuses as of 02/05/2023) Active Problems Problem Noted Date BPH with [...] as of this encounter (statuses as of 02/05/2023) Resolved Problems Problem Noted Date Resolved Date [...] as of this encounter (statuses as of 02/05/2023) Immunizations Name Administration Dates Next Due COVID-19 mRNA, LNP-s, No Pre serve, 2-Dose Series (Pfizer) 03/26/2021,08/07/2020,07/10/2020 COVID-19, LNP-s, No Preserve , Néstor-sucrose, Ages 12+ (Pfizer) 11/11/2021 Covid-19, Mrna, Lnp-s, Pf, B ivalent, 30 Mcg, IM, 12 yrs and above (Pfizer) 03/16/2022 Hepatitis B, 20+ yrs 12/26/2013,07/24/2013,06/26 Pneumococcal Conjugate Vacci ne, 20-valent ([id number]) 11/03/2021 Pneumococcal Polysaccharide PPV23 (Pneumovax) 12/22/2012 Seasonal Influenza, PF, 6 mo ns & Above, IM , (Flulaval) 03/17/2021,06/12/2020,04/07/2019,01/22,06/25/2017 Seasonal Influenza, Quadriva lent, No Preserve, IM [...] encounter Miscellaneous Notes * Telephone Encounter - Tatianna Francisco LPN - 02/05/2023 1:24 PM EDT Provider to address: pt calling due to having sharp pain on right side below arm pit. Sharp pain comes and goes in the last week pain has become more intense and does not go way as quickly. Pt has not done or taken anything for this pain relief. Pt denies problems breathing. No injury. He is concern about cancer as he was a smoker and has family hx. Scheduled aptp with Gage on 02/08 at 11:40 Reason for Call: Advice Contact: Telephone Call Contact Type: Care Coordination Outcome: scheduled Total Time including non face to face (minutes): 10 documented in this encounter Plan of Treatment Upcoming Encounters Date Type Specialty Care Team Description 02/08/2023 Office Visit Internal Medicine Gage Abrams PA-C [address] [place] [address] 05/14/2023 Imaging Radiology 06/02/2023 Office Visit Internal Medicine Claus Sullivan MD [address] [place] [address] 11/02/2023 Office Visit Cardiology Sommer Mcqueen PA-C [address] [place] [phone] 01/07/2024 Office Visit Urology Gage Norris MD [address] [place] [address] [place] [phone] Scheduled Procedures Name Priority Associated Diagnoses Date/Ti me COLONOSCOPY FLEXIBLE PROXIMA L DIAGNOSTIC Recall Special screening for malignant neoplasms, colon Health Maintenance Due Date Last Done Comments Cologuard 2008 Sigmoidoscopy 2008 Fecal Occult Blood Test 10/27/2019 10/26/2018 DTaP,Tdap,and Td Vaccines (2 - Td or Tdap) 12/22/2022 12/22/2012 Influenza Vaccine (FLU shot) (#1) 2023 03/16/2022, 03/17/2021, 06/12/2020, Additional history exists DIABETES-EYE EXAM 02/12/2023 02/12/2022, , 05/20/2020, Additional [...] Additional history exists Hepatitis B Completed 12/26/2013, 030 07/2013, 06/26/2013 Zoster Vaccines Completed 05/04/2018, 02/02/2018 Pneumococcal Vaccine: Pediatrics (0 to 5 Years) and At-Risk Patients (6 to 64 Years) Completed 11/03/2021, 12/22/2012 COVID-19 Vaccine Completed 03/16/2022, , 03/26/2021, Additional history exists GARDASIL-HPV IMMUNIZATION SERIES Aged Out No longer eligible based on patient's age to complete this topic MENINGOCOCCAL (MENACTRA/MENVEO) Aged Out No longer eligible based on patient's age to complete this topic documented as of this encounter Medical Devices Not on filedocumented as of this encounter Care Teams Rx Specialist Relationship Specialty Start Date End Date Claus Sullivan MD [address] [place] [address], [place] [phone] PCP - General Internal Medicine 09/08/12 documented as of this encounter
--- OUTSIDE RECORDS SUMMARY | 2023-06-29 02:13 | External Medical Summary | Summary of Care ---
Author Name Unknown Organization [facility] Address [address] [facility] [place] [address] Phone [phone] Care Team Providers Care Steam Shovel Runner Name Role Phone Claus Phelan MD Primary Care Provider + Reason for Visit * Reason Comments Follow Up Encounter Details Date Type Department Care Team Description 01/04/2023 Office Visit Urology, [facility] [address] [facility] [place] [address] Gage Norris MD [address] [place] [address] [facility] [address] Elevated prostate specific antigen (PSA)*; BPH with obstruction/lower urinary tract symptoms; Nocturia; Slow urinary stream Allergies Active Allergy Reactions Severity Noted Date Comments Empagliflozin Other (Please comment) 10/26/2018 Caused extreme drowsiness and excessive urination and dehydration documented as of this encounter (statuses as of 01/04/2023) Medications Medication Sig Dispensed Refills Start Date [...] as of this encounter (statuses as of 01/04/2023) Active Problems Problem Noted Date BPH with [...] as of this encounter (statuses as of 01/04/2023) Resolved Problems Problem Noted Date Resolved Date [...] as of this encounter (statuses as of 01/04/2023) Immunizations Name Administration Dates Next Due COVID-19 mRNA, LNP-s, No Pre serve, 2-Dose Series (Pfizer) 03/26/2021,08/07/2020,07/10/2020 COVID-19, LNP-s, No Preserve , Néstor-sucrose, Ages 12+ (Pfizer) 11/11/2021 Covid-19, Mrna, Lnp-s, Pf, B ivalent, 30 Mcg, IM, 12 yrs and above ([facility]) 03/16/2022 Hepatitis B, 20+ yrs 12/26/2013,07/24/2013,06/26 Pneumococcal Conjugate Vacci ne, 20-valent ([facility]glkn[facility]12) 11/03/2021 Pneumococcal Polysaccharide PPV23 (Pneumovax) 12/22/2012 Seasonal Influenza, Quadriva lent, No Preserve, 6 Mons & Above, IM 03/17/2021,06/12/2020,04/07/2019,01/22,06/25/2017 Seasonal Influenza, Quadriva lent, No Preserve, [...] on file documented as of this encounter Progress Notes * Gage Norris MD - 01/04/2023 12:11 PM EDT [phone] PCP: CLAUS PHELAN [address] [facility], [place] [id number] Alexx Bush is a 57 year old male, who presents for f/u of his PSA value. Thankfully, PSA has normalized. Patient is pessimistic about the [employer] [place]'s chances of making the playoffs this year. Alexx Bush is a 57 year old male, who presents for 1 year follow-up of his history of an elevated PSA and BPH. Patient remains on alfuzosin. Unfortunately, his PSA has risen to his highest level yet. ER visit in Apr 2022 for hypotension due to cellulitis is noted. He is improved. Elevated PSA: Patient is being seen for evaluation of an elevated PSA. Previous evaluation includesreferral to Urology. Patient has been onalfuzosin with improvement. He reportsslow stream, intermittency, nocturia, urgency and hesitancyprior to therapy.Nocturia x 1- 2previously, now down to once. PSA Results: Lab Results Component Value Date/Time PSA - [facility] 2.14 08/25/2022 04:12 PM PSA - [facility] 5.03 (H) 05/14/2022 01:12 PM PSA - [facility] 1.88 06/17/2021 02:26 PM PSA - [facility] 1.66 06/12/2020 12:58 PM PSA - [facility] 1.48 04/07/2019 02:39 PM PSA - [facility] 1.65 06/17/2017 03:01 PM PSA SCREENING 1.88 07/23/2015 08:41 AM PSA SCREENING 1.17 09/25/2013 11:17 AM Current Outpatient Medications Medication Sig Dispense Refill aspirin enteric coated 81 MG TBEC Take 1 Tablet by mouth in the morning. 100 Tab 3 Omeprazole 20 MG Oral Capsule Delayed Release [...] Release 12 Hour (Wellbutrin SR) Take 1 Tabletby mouth in the morning and 1 Tablet [...] skin once a week. 2 mL 3 ONETOUCH ULTRASOFT LANCETS [facility] Use up to four times a day as directed 1 Box 11 Blood Glucose Monitoring Suppl (ONETOUCH ULTRA SYSTEM) w/Device KIT Use to check blood sugar 2 times a day or as directed Dx. E 11.9 1 Kit 0 Acetaminophen 500 MG Oral Tablet Take 1 Tablet by mouth daily as needed for Pain. OneTouch Ultra Blue In Vitro Strip (Glucose Blood) Use to check sugars four times a day 400 Strip 1 Insulin Pen Needle 31G X 8 MM Use with Lantus insulin pen 300 Each 1 No current facility-administered medications for this visit. Review of patient's allergies indicates: Allergen Reactions Jardiance [Empagliflozin] Other (Please comment) Caused extreme drowsiness and excessive urination and dehydration Social History: Social History Tobacco Use Smoking status: Former Packs/day: 0.50 Years: 20.00 Pack years: 10.00 Types: Cigarettes Quit date: 05/24/2010 Years since quittin.6 Smokeless tobacco: Never Substance Use Topics Alcohol use: Yes Alcohol/week: 3.3 standard drinks Types: 4 12 oz of beer per week Comment: 2 times a month if that Vaping/E-Cigarette Use Vaping/E-Cigarette Use Never User Vaping/E-Cigarette Substances Vaping/E-Cigarette Devices Family History 4 items Mother () Cancer Father () Cancer Diabetes Dementia Sister Diabetes Other Eye Problems Past Surgical History: Procedure Laterality Date COLONOSCOPY, DIAGNOSTIC (RECTUM) 07/17/2013 COLONOSCOPY FLEXIBLE PROXIMAL DIAGNOSTIC performed by Jarred Venegas MD at ENDOSCOPY [facility] EGD, FLEXIBLE, DIAGNOSTIC 04/04/2018 retained food, repeat/ESOPHAGOGASTRODUODENOSCOPY (EGD), FLEXIBLE, TRANSORAL, DIAGNOSTIC performed by Cornell Gonzalez MD at [facility]COPY [facility] EGD, FLEXIBLE,W/ENDOSCOPIC US 04/22/2018 giardia, fatty liver, pancreatic cyst/[facility] EGD, W/ENDOSCOPIC US 04/04/2018 ESOPHAGOGASTRODUODENOSCOPY (EGD), FLEXIBLE, TRANSORAL, ENDOSCOPIC ULTRASOUND performed by Cornell Raymundo MD at ENDOSCOPY [facility] REPAIR INGUINAL HERNIA, UNDER AGE 5 REVISE EYE MUSCLE W/SUTURE Past Medical History: Diagnosis Date Aortic valve sclerosis 05/25/2021 Ascending aortic aneurysm (HCC) 07/15/2016 DM type 2, goal A1c below 7 09/08/2012 Fatty liver 03/17/2021 Gastroparesis 09/16/2018 History of 2019 novel coronavirus disease (COVID-19) 03/17/2021 History of DVT (deep vein thrombosis) 11/01/2017 2009, left History of giardiasis 05/04/2018 Mild aortic regurgitation 05/25/2021 Patient Active Problem List Diagnosis Code Type 2 diabetes mellitus with hemoglobin A1c goal of less than 7.0% ([facility]) E11.9 Ascending aortic aneurysm (HCC) I71.21 Type 2 diabetes mellitus with proteinuria ([facility]) E11.29, R80.9 Mixed hyperlipidemia E78.2 Current mild episode of major depressive disorder without prior episode ([facility]) F32.0 History of DVT (deep vein thrombosis) Z86.718 History of giardiasis Z86.19 Class 2 severe obesity due to excess calories with serious comorbidity in adult ([facility]) E66.01 Gastroparesis K31.84 SVT (supraventricular tachycardia) ([facility]) I47.1 Fatty liver K76.0 Gastro-esophageal reflux disease without esophagitis K21.9 History of 2019 novel coronavirus disease (COVID-19) Z86.16 Aortic valve sclerosis I35.8 Mild aortic regurgitation I35.1 BPH with obstruction/lower urinary tract symptoms N40.1, N13.8 Essential (primary) hypertension I10 Left bundle-branch block, unspecified I44.7 Constitutional: (-) fever and (-) chills Eyes: (+) corrective lenses Male : see HPI Neurology: (-) negative: no focal neurologic defect Psychiatry: (-) negative: no depression or anxiety Physical Exam Nursing note reviewed. Constitutional: General: He is not in acute distress. Appearance: Normal appearance. He is not toxic-appearing. HENT: Head: Normocephalic and atraumatic. Right Ear: External ear normal. Left Ear: External ear normal. Nose: Nose normal. Mouth/Throat: Mouth: Mucous membranes are moist. Eyes: Extraocular Movements: Extraocular movements intact. Cardiovascular: Pulses: Normal pulses. Pulmonary: Effort: Pulmonary effort is normal. No respiratory distress. Abdominal: Palpations: Abdomen is soft. Tenderness: There is no abdominal tenderness. Musculoskeletal: Cervical back: Normal range of motion and neck supple. Lymphadenopathy: Cervical: No cervical adenopathy. Skin: Coloration: Skin is not cyanotic or pale. Neurological: Mental Status: He is alert and oriented to person, place, and time. Motor: No weakness. Gait: Gait normal. Psychiatric: Attention and Perception: Attention normal. Mood and Affect: Mood and affect normal. Impression/Plan: 57-year-old male with improved BPH and PSA. We are pleased with the patient's improvement. Will leave as is. Will plan on 1 year follow-up withPSA value. Refills in the fall when due. Gage Norris MD 12:11 PM 01/04/2023 documented in this encounter Nursing Notes * Agatha Aj LPN - 01/04/2023 12:01 PM EDT 5 month ret for fluctuating PSA. Taking alfuzosin. Patient presents alone. PSA Results: Lab Results Component Value Date/Time PSA - [facility] 2.14 08/25/2022 04:12 PM PSA - [facility] 5.03 (H) 05/14/2022 01:12 PM PSA - [facility] 1.88 06/17/2021 02:26 PM PSA - [facility] 1.66 06/12/2020 12:58 PM PSA - [facility] 1.48 04/07/2019 02:39 PM PSA - [facility] 1.65 06/17/2017 03:01 PM PSA SCREENING 1.88 07/23/2015 08:41 AM PSA SCREENING 1.17 09/25/2013 11:17 AM documented in this encounter Plan of Treatment Upcoming Encounters Date Type Specialty Care Team Description 05/14/2023 Imaging Radiology 06/02/2023 Office Visit Internal Medicine Claus Phelan MD [address] [place] [address] 11/02/2023 Office Visit Cardiology Sommer Mcqueen PA-C [address] [place] [address] 01/07/2024 Office Visit Urology Gage Norris MD [address] [place] [address] [place] [address] Scheduled Orders Name Type Priority Associated Diagnoses Orde r Schedule PSA Lab Routine Elevated prostate specific antigen (PSA) BPH with obstruction/lower urinary tract symptoms Expected: 12/20/2023, Expires: 01/05/2024 Scheduled Procedures Name Priority Associated Diagnoses Date/Ti [...] 05/14/2023 022, 05/19/2021, 03/21/2021, Additional history exists DIABETES-FOOT EXAM 05/14/2023 05/14/2022, 1 , 06/12/2020, Additional history exists Depression Screening, Annual for Pts 12 and Over 05/14/2023 05/14/2022, 07/13/2014 HbA1c 06/06/2023 12/04/2022, 04/0 08/2022, 05/07/2022 (Done [...] as of this encounter Visit Diagnoses Diagnosis Elevated prostate specific antigen (PSA)- Primary BPH with obstruction/lower urinary tract symptoms Hypertrophy of prostate with urinary obstruction and other lower urinary tract symptoms (LUTS) Nocturia Slow urinary stream Slowing of urinary stream documented in this encounter Care Teams Steam Shovel Runner Relationship Specialty Start Date End Date Claus Phelan MD [address] [place] [address], [place] [address] PCP - General Internal Medicine 09/08/12 documented as of this encounter
[2023-06-29 03:40] VITALS: O2SAT 94
[2023-06-29 07:08] LABS: Hematocrit (blood only) 35.7 % (42.0-52.0); Hemoglobin 12.7 g/dl (14.0-18.0); Mean Corpuscular Hemoglobin 33.1 pg (25.0-34.0); Mean Corpuscular Hgb Conc 35.6 g/dL (32.0-36.0); Mean Platelet Volume 11.5 fL (9.4-12.4); Platelet Count 198 K/uL (130-400); RDW Coefficient of Variation 12.8 % (11.5-14.5); RDW Standard Deviation 43.6 fL (36.4-46.3); Red Blood Count 3.84 M/uL (4.70-6.10); White Blood Count 5.93 K/ul (4.8-10.8)
[2023-06-29 07:18] LABS: BUN Creatinine Ratio 13.6 (10-20); Calcium 8.9 mg/dl (8.6-10.3); Creatinine Clr Calc Pharmacy 112.3 ml/min; Est GFR (African American) 108.2 ml/min; Est GFR (Non-African American) 93.4 ml/min; Potassium 3.4 mmol/L (3.5-5.1)
[2023-06-29] MEDS ORDERED: cefTRIAXone SODIUM 1,000 MG in DEXTROSE 5 % MINI-B 50 ML IV SCH (08:30)
[2023-06-29] MEDS ORDERED: AMPICILLIN SOD/SULBACTAM SOD 1,500 MG in SODIUM CHLOR 0.9% MINI-B 100 ML IV SCH (08:45)
[2023-06-29] MEDS: METOPROLOL SUCC 25MG EXT REL TAB PO SCH (10:01)
[2023-06-29] MEDS: PANTOprazole 40 MG TAB PO SCH (10:01)
[2023-06-29] MEDS: lisinopril 5 MG TAB PO SCH (10:01)
[2023-06-29] MEDS: ASPIRIN 81 MG ECTAB PO SCH (10:01)
[2023-06-29] MEDS: ATORVASTATIN 40 MG TAB PO SCH (10:01)
[2023-06-29] MEDS: TAMSULOSIN HCL 0.4 MG CAP PO SCH (10:02)
[2023-06-29] MEDS: POTASSIUM CHLORIDE CRTAB 20 MEQ TABCR PO ONE (10:04)
[2023-06-29] MEDS: ACETAMINOPHEN 325 MG TAB PO PRN (10:04)
[2023-06-29] MEDS: DOXYCYCLINE HYCLATE 100 MG CAP PO SCH (10:04)
[2023-06-29] MEDS: UNASYN 3000MG / NS q6h IV SCH (10:05)
[2023-06-29 10:40] VITALS: PULSE 75; RESP 18; TEMP 98.1
--- NOTE | 2023-06-29 10:47 | Fluoroscopy Report ---
MODIFIED BARIUM SWALLOW CLINICAL HISTORY: r/o aspiration; RLL pna COMPARISON STUDY: None FLUOROSCOPY TIME: 1.19 minutes. Ka, r: 13.6 mGy. TECHNIQUE: A modified barium swallow was performed in conjunction with Speech Pathology. The patient ingested varying consistencies of barium containing material. Video fluoroscopy was performed. FINDINGS: Swallowing mechanism was intact. No tracheal aspiration was identified with thin liquids, n ectar thick liquids, pudding consistency and cracker with barium pudding. Epiglottic inversion was no rmal. Laryngeal elevation was normal. IMPRESSION: 1. Intact swallowing mechanism. No tracheal aspiration. 2. Full recommendations by Speech pathology to follow. ACT 112: Negative or not required by law. Electronically signed by: Shahzad Feldman M.D. 06/29/2023 10:45 AM
--- NOTE | 2023-06-29 11:01 | Electrocardiogram Report ---
Test Reason : Blood Pressure : / mmHG Vent. Rate : 068 BPM Atrial Rate : 068 BPM P-R Int : 212 ms QRS Dur : 084 ms QT Int : 386 ms P-R-T Axes : 054 049 072 degrees QTc Int : 410 ms Sinus rhythm with 1st degree A-V block Nonspecific T wave abnormality Anteroseptal leads Abnormal ECG When compared with ECG of 28-JUN-2023 15:37, Premature atrial complexes are no longer Present Left bundle branch block is no longer Present Nonspecific T wave abnormality Anteroseptal leads now present Confirmed by Ke Espinoza ([id number]) on 06/29/2023 11:00:47 AM Referred By: REFERRED SELF Confirmed By:Ke Espinoza
--- NOTE | 2023-06-29 12:34 | XRay Report ---
XR chest 2V PA/lateral HISTORY: 58 years-old Male r/o infiltrate, pulm edema acute shortness of breath COMPARISON: 06/28/2023 TECHNIQUE: PA and lateral views of the chest FINDINGS: Cardiomediastinal and hilar silhouettes are within normal limits. No pneumothorax, pleural effusion o r overt pulmonary edema. Pulmonary vascular congestion. Subtle ill-defined right infrahilar opacity h as improved. IMPRESSION: 1. Cardiomegaly with pulmonary vascular congestion. 2. Improved aeration of the right lung base. ACT 112: Negative or not required by law. The above report was generated using voice recognition software. It may contain grammatical, syntax o r spelling errors. Electronically signed by: Brent Matos M.D. 06/29/2023 12:32 PM
--- NOTE | 2023-06-29 13:06 | Hospitalist Progress Note ---
Date of Service June 29, 2023 Assessment & Plan (1) Aspiration pneumonitis: (2) Hypoxia: Plan: Patient is 58 year old male with PMH DM II, HTN, HLD, chronic LBBB, BPH, depression, GERD, ascending aortic aneurysm presented to ER with complaint of coughing/choking on saliva with associated SOB that occurred prior to arrival. No prior choking or dysphagia. Aspiration pneumonitis Transient Hypoxia --CXR:Suspected right basilar opacity. This may reflect pneumonia. Radiographic follow-up to ensure resolution is recommended. Mild cardiomegaly without evidence for pulmonary edema. --Repeat CXR:Cardiomegaly with pulmonary vascular congestion. Improved aeration of the right lung base. --Video Swallow: Intact swallowing mechanism. No tracheal aspiration. Full recommendations by Speech pathology to follow. -- Empirically started on Unasyn, doxycycline Saturating well on room air Continue aspiration precautions Patient prefers to be discharged home today. Understands the risks and complications. Saturating well on room air Plan to discharge home today (3) Diastolic dysfunction: Plan: Chronic diastolic heart failure --09/24/2022 echo: EF: 55%, grade 1 diastolic dysfunction, mild aortic valve regurgitation, mild mitral regurgitation, mild tricuspid regurgitation. No evidence of pulmonary hypertension. Ascending aorta moderately enlarged at 4.7 cm Chronic edema secondary to diastolic dysfunction Edema unchanged per patient Advised to follow-up with cardiology on discharge Will place on Lasix as needed Advised to follow-up with cardiology as outpatient (4) Aortic valve regurgitation: Plan: Echo as above (5) Thoracic aortic aneurysm: Plan: Stable 05/14/2023 CT chest: Mild aneurysmal dilation of ascending aorta measuring 4.6 x 4.5 cm Follow-up as outpatient (6) Diabetes mellitus, type 2: Plan: A1c: 6.2 on 06/17/2023 Hold home Trulicity. Has been using basal insulin as needed at home Novolog sliding scale per protocol Monitor BGs (7) Hypertension: Plan: Stable Continue lisinopril, metoprolol succinate (8) Hyperlipidemia: Plan: Continue atorvastatin (9) LBBB (left bundle branch block): Plan: Chronic LBBB (10) BPH (benign prostatic hyperplasia): Plan: Continue alfuzosin (11) Depression: Plan: Stable Continue bupropion DVT Prophylaxis Lovenox SQ Code Status Full Code Disposition Home Admission and Anticipated Discharge Date Admission Date: June 28, 2023 Subjective Patient is seen and examined at bedside States feeling well today Denies any cough, chest pain, dyspnea, nausea, vomiting, abdominal pain Reports chronic edema which is unchanged Chest x-ray today showed improved aeration of the lungs Had video swallow earlier today Review of Systems Review of Systems: All systems reviewed & are unremarkable except as noted in Subjective Physical Exam Physical Exam: Physical Exam: Vitals signs as noted above General Appearance:Obese, no apparent distress Head: normocephalic, Atraumatic Eyes: normal inspection, EOMI Neck: supple, Trachea midline Respiratory/Chest: Normal breath sounds, CTA, No accessory muscle use Cardiovascular: S1, S2, No murmur Abdomen/GI:Soft, Non tender, Bowel sounds present Extremities/Musculoskeletal:normal inspection, 1+ pedal edema-- (chronic per patient) Neurologic/Psych:AAOX3, grossly no focal neurological deficits Skin: normal color, warm Results & Data Results & Data Vital Signs (Past 12 Hours) Vital Signs Temp Pulse Pulse Resp BP Pulse Ox O2 Del Method 06/29/23 10:39 36.7 C 75 18 147/81 H 94 Room Air 06/29/23 07:28 36.8 C 76 20 154/88 H 94 Room Air 06/29/23 05:56 72 06/29/23 03:40 36.7 C 79 18 151/89 H 94 Room Air Laboratory Results Short CBC 06/28/23 06/29/23 Range/Units 15:40 06:26 WBC 4.83 5.93 (4.8-10.8) K/ul Hgb 14.4 12.7 L (14.0-18.0) g/dl Hct 40.5 L 35.7 L (42.0-52.0) % Plt Count 209 198 (130-400) K/uL BMP 06/28/23 06/29/23 15:40 06:26 Sodium 138 141 Potassium 4.1 3.4 L Chloride 106 105 Carbon Dioxide 26 30 BUN 15 12 Creatinine 1.00 0.88 Glucose 182 H 86 Calcium 9.1 8.9 Liver Function 06/28/23 Range/Units 15:40 Total Bilirubin 0.6 (0.2-1.0) mg/dl AST 19 (13-39) U/L ALT 23 (7-52) U/L Alkaline Phosphatase 83 (34-104) U/L Albumin 4.4 (3.4-5.0) gm/dl Urine 06/28/23 Range/Units 16:37 Urine Color Yellow Urine Appearance Clear (Clear) Urine pH 6.5 (4.5-7.5) Ur Specific Mears 1.018 (1.000-1.030) Urine Protein Negative (Negative) Urine Glucose (UA) Negative (Negative)
--- NOTE | 2023-06-29 13:23 | Discharge Summary ---
Date of Service June 29, 2023 Admission HPI Per Admitting Provider Patient is 58 year old male with PMH DM II, HTN, HLD, chronic LBBB, BPH, depression, GERD, ascending aortic aneurysm presented to ER with complaint of coughing episode. Patient was sitting today when he "choked on spit". had continued coughing and felt short of breath and dizzy. felt like couldn't catch his breath and came to ER for evaluation. Patient was not eating or drinking at the time of choking episode. Prior to this episode today denies any choking on liquids or food. He states he has been feeling in his normal health. Denies any fever, chills, recent cough or congestion symptoms. has chronic BLE edema that improves with elevation of legs. Denies any increased LE edema. Denies diaphoresis, N/V/D/C, DUMONT, syncope, vision changes, neck pain, CP, orthopnea, exertional SOB, palpitations, hemoptysis, sore throat, otalgia, rhinorrhea, abdominal pain, paresthesias, weakness, increased extremity edema, rashes, urinary symptoms. Upon ER arrival oxygen saturating noted 85% on room air and had reported wheezing. Patient was placed on oxygen. During ER course symptoms resolved and patient was able to be weaned off of oxygen and is satting 95% on room air. Admission Exam Per Admitting Provider General: no distress, obese Head: normocephalic, atraumatic Eyes: conjunctiva non-injected, anicteric ENT: normal inspection external ears, nose, mucous membranes moist Neck: supple, trachea midline Lungs: clear, no respiratory distress, no wheezing/rhonchi/rales CV: RRR, no murmur, 1+ pretibial edema Abd: normal BS, soft, non-tender Ext: no cyanosis, no calf tenderness Neuro: A&O x 3, no focal deficits noted, normal affect Skin: warm, dry Principal Diagnosis Aspiration pneumonitis Chronic diastolic heart failure Discharge Data Allergies Allergy/AdvReac Type Severity Reaction Status Date / Time empagliflozin AdvReac Severe EXTREME Verified 06/28/23 18:28 [From Jardiance] DROWSINESS/EXCESSIVE URINATION/DEHYDRATION Consultations 06/28/23 18:07 ED Decision to Admit Stat Procedures Performed Laboratory Results WBC 5.93 K/ul (4.8-10.8) 06/29/23 06:26 RBC 3.84 M/uL (4.70-6.10) L 06/29/23 06:26 Hgb 12.7 g/dl (14.0-18.0) L 06/29/23 06:26 Hct 35.7 % (42.0-52.0) L 06/29/23 06:26 MCV 93.0 fL (80.0-100.0) 06/29/23 06:26 MCH 33.1 pg (25.0-34.0) 06/29/23 06: MCHC 35.6 g/dL (32.0-36.0) 06/29/23 06: RDW Std Deviation 43.6 fL (36.4-46.3) 06/29/23: RDW Coeff of Jesus 12.8 % (11.5-14.5) 06/29/23 06: Plt Count 198 K/uL (130-400) 06/29/23 06: MPV 11.5 fL (9.4-12.4) 06/29/23 06:26 Immature Gran % (Auto) 0.2 % 06/28/23 15:40 Neut % (Auto) 77.3 % 06/28/23 15:40 Lymph % (Auto) 16.1 % 06/28/23 15:40 [place] % (Auto) 6.0 % 06/28/23 15:40 Eos % (Auto) 0.0 % 06/28/23 15:40 Baso % (Auto) 0.4 % 06/28/23 15:40 Neut # (Auto) 3.73 K/uL (1.40-6.50) 06/28/23 15:40 Lymph # (Auto) 0.78 K/uL (1.20-3.40) L 06/28/23 15:40 [place] # (Auto) 0.29 K/uL (0.11-0.59) 06/28/23 15:40 Eos # (Auto) 0.00 K/uL (0.00-0.50) 06/28/23 15:40 Baso # (Auto) 0.02 K/uL (0.00-0.20) 06/28/23 15:40 Immature Gran # (Auto) 0.01 K/uL (0.01-0.20) 06/28/23 15:40 PT 10.9 Seconds (9.0-12.0) 06/28/23 15:40 INR 1.0 (0.9-1.1) 06/28/23 15:40 APTT 27 Seconds (21-31) 06/28/23 15:40 PTT Ratio 1.0 06/28/23 15:40 Sodium 141 mmol/L (136-145) 06/29/23 06:26 Potassium 3.4 mmol/L (3.5-5.1) L 06/29/23 06:26 Chloride 105 mmol/L (98-107) 06/29/23 06:26 Carbon Dioxide 30 mmol/L (21-32) 06/29/23 06:26 Anion Gap 6 (3-11) 06/29/23 06:26 BUN 12 mg/dl (6-23) 06/29/23 06:26 Creatinine 0.88 mg/dl (0.6-1.4) 06/29/23 06:26 Est Cr Clr Drug Dosing 112.3 ml/min 06/29/23 06:26 Est GFR ( Amer) 108.2 ml/min 06/29/23 06:26 Est GFR (Non-Af Amer) 93.4 ml/min 06/29/23 06:26 BUN/Creatinine Ratio 13.6 (10-20) 06/29/23 06:26 Glucose 86 mg/dl (70-99(Fasting)) 06/29/23 06:26 POC Glucose 201 mg/dl (70-99) H 06/29/23 11:51 Calcium 8.9 mg/dl (8.6-10.3) 06/29/23 06:26 Magnesium 1.8 mg/dl (1.7-2.4) 06/28/23 15:40 Total Bilirubin 0.6 mg/dl (0.2-1.0) 06/28/23 15:40 AST 19 U/L (13-39) 06/28/23 15:40 ALT 23 U/L (7-52) 06/28/23 15:40 Alkaline Phosphatase 83 U/L (34-104) 06/28/23 15:40 Troponin I High Sens 6.4 pg/ml (0-20) 06/28/23 15:40 B-Natriuretic Peptide 399 pg/ml (0-100) H 06/28/23 15:40 Total Protein 6.6 gm/dl (6.0-8.3) 06/28/23 15:40 Albumin 4.4 gm/dl (3.4-5.0) 06/28/23 15:40 Globulin 2.2 gm/dl (2.5-4.0) L 06/28/23 15:40 Albumin/Globulin Ratio 2.0 (0.9-2) 06/28/23 15:40 Urine Color Yellow 06/28/23 16:37 Urine Appearance Clear (Clear) 06/28/23 16:37 Urine pH 6.5 (4.5-7.5) 06/28/23 16:37 Ur Specific [place] 1.018 (1.000-1.030) 06/28/23 16:37 Urine Protein Negative (Negative) 06/28/23 16:37 Urine Glucose (UA) Negative (Negative) 06/28/23 16:37 Urine Ketones Negative (Negative) 06/28/23 16:37 Urine Blood Negative (Negative) 06/28/23 16:37 Urine Nitrite Negative (Negative) 06/28/23 16:37 Urine Bilirubin Negative (Negative) 06/28/23 16:37 Urine Urobilinogen Positive (Negative) H 06/28/23 16:37 Ur Leukocyte Esterase Negative (Negative) 06/28/23 16:37 Adenovirus (PCR) Not Detected (NotDetected) 06/28/23 15:40 B. pertussis DNA (PCR) Not Detected (NotDetected) 06/28/23 15:40 B.parapertussis DNA PCR Not Detected (NotDetected) 06/28/23 15:40 C. pneumoniae DNA (PCR) Not Detected (NotDetected) 06/28/23 15:40 Coronavirus OC43 (PCR) Not Detected (NotDetected) 06/28/23 15:40 Coronavirus HKU1 (PCR) Not Detected (NotDetected) 06/28/23 15:40 Coronavirus 229E (PCR) Not Detected (NotDetected) 06/28/23 15:40 SARS-CoV-2 (PCR) Not Detected (NotDetected) 06/28/23 15:40 Coronavirus NL63 (PCR) Not Detected (NotDetected) 06/28/23 15:40 Human Metapneumovir PCR Not Detected (NotDetected) 06/28/23 15:40 Influenza Type A (PCR) Not Detected (NotDetected) 06/28/23 15:40 Influenza Type B (PCR) Not Detected (NotDetected) 06/28/23 15:40 M. pneumoniae (PCR) Not Detected (NotDetected) 06/28/23 15:40 Parainfluenza 1 (PCR) Not Detected (NotDetected) 06/28/23 15:40 Parainfluenza 2 (PCR) Not Detected (NotDetected) 06/28/23 15:40 Parainfluenza 3 (PCR) Not Detected (NotDetected) 06/28/23 15:40 Parainfluenza 4 (PCR) Not Detected (NotDetected) 06/28/23 15:40 RSV (PCR) Not Detected (NotDetected) 06/28/23 15:40 Entero/Rhino (PCR) Not Detected (NotDetected) 06/28/23 15:40 Impressions Chest X-Ray 06/29/23 08:00 XR chest 2V PA/lateral HISTORY: 58 years-old Male r/o infiltrate, pulm edema acute shortness of breath COMPARISON: 06/28/2023 TECHNIQUE: PA and lateral views of the chest FINDINGS: Cardiomediastinal and hilar silhouettes are within normal limits. No pneumothorax, pleural effusion or overt pulmonary edema. Pulmonary vascular congestion. Subtle ill-defined right infrahilar opacity has improved. IMPRESSION: 1. Cardiomegaly with pulmonary vascular congestion. 2. Improved aeration of the right lung base. ACT 112: Negative or not required by law. The above report was generated using voice recognition software. It may contain grammatical, syntax or spelling errors. Electronically signed by: Brent Matos M.D. 06/29/2023 12:32 PM Videofluoroscopic Swallow 06/29/23 10:30 MODIFIED BARIUM SWALLOW CLINICAL HISTORY: r/o aspiration; RLL pna COMPARISON STUDY: None FLUOROSCOPY TIME: 1.19 minutes. Ka, r: 13.6 mGy. TECHNIQUE: A modified barium swallow was performed in conjunction with Speech Pathology. The patient ingested varying consistencies of barium containing material. Video fluoroscopy was performed. FINDINGS: Swallowing mechanism was intact. No tracheal aspiration was identified with thin liquids, nectar thick liquids, pudding consistency and cracker with barium pudding. Epiglottic inversion was normal. Laryngeal elevation was normal. IMPRESSION: 1. Intact swallowing mechanism. No tracheal aspiration. 2. Full recommendations by Speech pathology to follow. ACT 112: Negative or not required by law. Electronically signed by: Shahzad Feldman M.D. 06/29/2023 10:45 AM Ordered Studies 06/29/23 10:30 FL video swallow Routine Hospital Course (1) Aspiration pneumonitis: (2) Hypoxia: Patient is 58 year old male with PMH DM II, HTN, HLD, chronic LBBB, BPH, dep ression, GERD, ascending aortic aneurysm presented to ER with complaint of coughing/choking on saliva with associated SOB that occurred prior to arrival. No prior choking or dysphagia. Aspiration pneumonitis Transient Hypoxia --CXR:Suspected right basilar opacity. This may reflect pneumonia. Radiographic follow-up to ensure resolution is recommended. Mild cardiomegaly without evidence for pulmonary edema. --Repeat CXR:Cardiomegaly with pulmonary vascular congestion. Improved aeration of the right lung base. --Video Swallow: Intact swallowing mechanism. No tracheal aspiration. Full recommendations by Speech pathology to follow. -- Empirically started on Unasyn, doxycycline Saturating well on room air Continue aspiration precautions Patient prefers to be discharged home today. Understands the risks and complications. Saturating well on room air Plan to discharge home today (3) Diastolic dysfunction: Chronic diastolic heart failure --09/24/2022 echo: EF: 55%, grade 1 diastolic dysfunction, mild aortic valve regurgitation, mild mitral regurgitation, mild tricuspid regurgitation. No evidence of pulmonary hypertension. Ascending aorta moderately enlarged at 4.7 cm Chronic edema secondary to diastolic dysfunction Edema unchanged per patient Advised to follow-up with cardiology on discharge Will place on Lasix as needed Advised to follow-up with cardiology as outpatient (4) Aortic valve regurgitation: Echo as above (5) Thoracic aortic aneurysm: Stable 05/14/2023 CT chest: Mild aneurysmal dilation of ascending aorta measuring 4.6 x 4.5 cm Follow-up as outpatient (6) Diabetes mellitus, type 2: A1c: 6.2 on 06/17/2023 Hold home Maulik. Has been using basal insulin as needed at home Novolog sliding scale per protocol Monitor BGs (7) Hypertension: Stable Continue lisinopril, metoprolol succinate (8) Hyperlipidemia: Continue atorvastatin (9) LBBB (left bundle branch block): Chronic LBBB (10) BPH (benign prostatic hyperplasia): Continue alfuzosin (11) Depression: Stable Continue bupropion DVT Prophylaxis Lovenox SQ Code Status Full Code Disposition Home Total Time Total Time Spent Total Time Spent (In Minutes): 55 minutes Discharge Plan Discharge Items Patient Disposition: Home - Self-Care Reason For Visit: HYPOXIA Discharge Diagnosis: Aspiration pneumonitis Chronic diastolic heart failure Activity: Per Instructions section Exercise/Sports: Wait until after follow-up appointment Non-emergency contact: Primary Care Provider and Supervisor [place] Call non-emergency contact if: you have any medication questions, your symptoms worsen, your pain is concerning for you and you have a fever Follow-up/Referrals: Claus Sullivan MD [Primary Care Provider] - (Date & Time 07/02/2023 9:00 AM Provider Radha Ayala MD Department General Internal Medicine [facility] ) Diet: Carb Consistent or DM2 Addtl Attending Provider Instructions: Follow-up with your primary care physician Dr. Sullivan on 07/02/2023 9:00 AM Follow-up with your account engineer in 3 to 4 weeks. --- Complete the antibiotic course Augmentin as prescribed. Seek immediate medical attention if your symptoms reoccur or worsen Please take all medications as instructed on discharge list below. Please call if you have any questions or problems. You can reach a [facility] hospitalist on duty at [facility] 24 hours a day by calling [phone] Pending Studies at Discharge: No Stand-Alone Forms: My [facility], Work/School Release, Smoking Cessation Medications and DC Order Prescriptions: New amoxicillin-pot clavulanate 875-125 mg tablet 1 tab PO BID Qty: 11 0RF furosemide [Lasix] 20 mg tablet 20 mg PO Q2D PRN (Reason: edema) Qty: 10 0RF Continued atorvastatin 40 mg Tablet 40 mg PO QAM bupropion HCl 150 mg Tablet Sustained-Release 12 Hr 150 mg PO AMHS lisinopril 5 mg Tablet 5 mg PO QAM metoprolol succinate 25 mg Tablet Extended Release 24 Hr 25 mg PO QAM aspirin 81 mg Tablet,Delayed Release (Dr/Ec) 81 mg PO QAM alfuzosin 10 mg tablet extended release 24 hr 10 mg PO QAM acetaminophen [Tylenol Extra Strength] 500 mg Tablet 500 mg PO DAILY PRN (Reason: Pain) omeprazole 20 mg capsule,delayed release(DR/EC) 20 mg PO QAM Trulicity 3 mg/0.5 mL pen injector 3 mg SUBCUT WK Rx Instructions: TUESDAYS insulin glargine [Lantus Solostar U-100 Insulin] 100 unit/mL (3 mL) Insulin Pen 10 unit SUBCUT DAILY PRN (Reason: pt decides) Discharge Orders: Discharge Order (Routine); Ordered 06/29/23 Ordered By: Elgin Randle Admission Data Admit Date/Time: 06/28/23 19:05 Attending Provider: Elgin Randle Admit Provider: Dolores Mckeon Primary Care Provider: Claus Sullivan Other Providers: Dolores Mckeon
[2023-06-29 13:31] VITALS: BP 147/94
[2023-06-29] MEDS ORDERED: cefTRIAXone SODIUM 2,000 MG in DEXTROSE 5 % MINI-B 50 ML IV SCH (18:00)
== END 2023-06-29 14:11 | disposition home or self-care (01) | DRG 178 ==
LOC: ED 15:12 → 2N 19:05 → SUATTDRO 19:05 → 2N 21:33